=== PATIENT | female | born 1960 | race Caucasian/White ===

== ENCOUNTER → 2017-04-25 | Outpatient (CLI) | payer BC, OTHER ==
--- NOTE | 2017-05-03 19:49 | SLEEPHOME ---
DATE OF PROCEDURE: 04/25/2017 ORDERED BY: Daphney Sharif Diagnostic home sleep testing was performed due to concern for the obstructive sleep apnea syndrome in this patient with comorbidities of hypertension. For testing, a NOX-T3 respiratory monitoring device was used. Continuous record was made of pulse, oxygen saturation, air flow, chest and abdominal strain and body position. 9 hours and 59 minutes of data were reviewed, 9 hours and 10 minutes were marked as time in bed. During the interval marked time in bed, there were 57 respiratory events identified of 10 seconds in duration or greater for a respiratory event index of 6.2. The events were primarily obstructive. Baseline pulse rate 56 beats per minute. Pulse rate ranged 46 to 78. Baseline saturation 91%. Saturations fell as low as 85% surrounding respiratory events. Testing was performed in both the supine and nonsupine positions. IMPRESSION: Abnormal home sleep testing with repetitive respiratory events and oxygen desaturations to 85% with a respiratory event index of 6.2 is consistent with the obstructive sleep apnea syndrome. RECOMMENDATION: Given the significant oxygen desaturations identified and the frequency of events, referral for a formal sleep evaluation and in laboratory pressure titration is recommended. Copy To: Dr. Galvez
== END ==
LOC: M SLEEP HO 12:43
PROVIDERS: ATTEND Nurse Practitioner Adult Health
DX: G47.30 Sleep apnea, unspecified (principal)

== ENCOUNTER → 2019-12-26 | Outpatient (CLI) | payer OTHER ==
[2019-12-26 14:12] VITALS: BP 148/88
--- NOTE | 2019-12-27 01:01 | REP ---
POST BIOPSY MAMMOGRAM RIGHT BREAST: Post biopsy mammogram right breast performed following ultrasound-guided biopsy of a lesion in the upper outer quadrant by Dr. Carrasco. Biopsy clip is seen in the upper outer quadrant at the site of a nodule identified by mammography at [facility] dated 11/21/2019.
--- NOTE | 2019-12-27 01:01 | REP ---
ULTRASOUND GUIDANCE FOR RIGHT BREAST BIOPSY: Ultrasound guidance was provided for Dr. Carrasco, who performed ultrasound-guided biopsy of a hypoechoic nodule at the 10-11 o'clock position as seen by prior ultrasound at [facility] 11/27/2019.
--- NOTE | 2019-12-27 01:03 | REP ---
ULTRASOUND LEFT BREAST: Ultrasound left breast performed in the upper outer quadrant. At the 12:30 position, 3 cm from the nipple, is a suspicious irregular hypoechoic nodule with internal blood flow with Doppler evaluation. It measures 6 x 9 x 8 mm. At the 2-o'clock position, a hypoechoic area demonstrates irregular lobulated margins and demonstrates internal blood flow, measuring 2.0 x 1.5 x 1.6 cm. IMPRESSION: ACR 4, suspicious. Two solid irregular nodules in the upper outer quadrant of the left breast, as discussed above. Recommend ultrasound-guided biopsy.
--- NOTE | 2019-12-27 01:07 | REP ---
ULTRASOUND BILATERAL AXILLAE: Real-time sonographic evaluation of bilateral axillae is performed. In the right axilla, three lymph nodes are identified, which demonstrate fatty lei. The largest measures 1.8 x 1.1 x 2.4 cm; the others measure 1.8 x 0.6 x 1.7 cm and 2.3 x 0.9 x 1.6 cm. In the left axilla, two somewhat enlarged lymph nodes are seen. Both demonstrate fatty lei. The largest measures 2.5 x 1.2 x 4.7 cm. The other measures 1.5 x 1.1 x 1.1 cm. IMPRESSION: Bilateral axillary adenopathy, as discussed above.
--- NOTE | 2020-01-01 15:42 | ROOPDOC ---
[facility] Report Of Operation Report of Operation DATE OF PROCEDURE: 12/26/19 PREPROCEDURE DIAGNOSES: Right breast mass POSTPROCEDURE DIAGNOSES: Right breast mass PROCEDURE: Ultrasound-guided right breast mass biopsy with clip placement SURGEON: Elder Valera LOCK PLATER: ANESTHESIA: Local anesthetic was used ESTIMATED BLOOD LOSS: Approximately 1 mL. COMPLICATIONS: None. REMARKS: Clip seen on postbiopsy mammogram in expected position. DESCRIPTION OF PROCEDURE: Lidocaine 1% LOT [id number] Expiration 12/2022 Sodium Bicarbonate 8.4% LOT [id number] Expiration 12/2020 Hydromark clip LOT [id number] Expiration 07/23/2022 SHAPE 4 Bx device: BARD [id number] x10 cm LOT [id number] Expiration 09/14/2022 Informed consent was obtained. The most common risk and possible complications including bleeding, hematoma, bruising, infection, injury to surrounding structures were explained to the patient and she expressed understanding. Patient was placed on the bed in the supine position. Appropriate time out was done stating patients name, date of , and the procedure to be performed. The right breast was prepped and draped in the usual fashion. The ultrasound was used to confirm the location of the lesion in the right breast at 10:00 5 centimeters from the nipple. Plain Lidocaine 1% and 8.4% sodium bicarbonate 10:1 mix was used to anesthetize the skin, the biopsy site and tissues along the anticipated biopsy tract. Small skin incision was made with blade number 11. BARD Marquee 14G cannula with introducer ([id number]) was inserted through the incision and advanced under the ultrasound guidance to position immediately adjacent to the lesion. Next, the introducer was removed and BARD Marquee 14G biopsy device was places in the cannula. Pre-biopsy imaging, and post-biopsy imaging were captured. Five good core biopsies were taken at various levels of the lesion. Specimen was placed in formaldehyde, labeled with appropriate biopsy site and patients name, and sent to pathology for evaluation. Next, the biopsy device was withdrawn and a clip introducer was inserted into the biopsy site via the cannula. The Hydromark clip was deployed under sonographic guidance. Post-clip placement image was captured. Manual pressure over the biopsy cavity and tract was held after the clip introducer was withdrawn. No bleeding was noted upon removal of the pressure. Post-biopsy mammogram of the right breast was obtained and showed clip in expected position. Postprocedural dressing was placed. Patient tolerated procedure well. Discharge instructions were discussed with the patient and she expressed understanding. ELDER VALERA DO Jan 01, 2020 15:36
== END ==
LOC: M WHC 12:25
PROVIDERS: ATTEND Surgery
DX: D05.11 Intraductal carcinoma in situ of right breast (principal); R59.0 Localized enlarged lymph nodes

== ENCOUNTER → 2020-01-04 | Outpatient (CLI) | payer OTHER ==
[2020-01-04 16:58] LABS: CALCIUM LEVEL 9.4 MG/DL (8.5-10.1); CREATININE FOR GFR 1.12 MG/DL (0.55-1.30); POTASSIUM SERUM 4.3 MEQ/L (3.5-5.1)
== END ==
LOC: M PLALAB 13:21
PROVIDERS: ATTEND Surgery
DX: N63.11 Unspecified lump in the right breast, upper outer quadrant (principal)

== ENCOUNTER → 2020-03-19 | Outpatient (CLI) | payer OTHER ==
[~2020-03-19] MED LIST: CATA0.3T PO; DECA4TAB PO; LISI-538 PO; METF-839 PO; METO1TAB33 PO; ONDA8TAB8 PO; POTA1TAB14 PO; PRAV40TA2 PO; TRIA37.53 PO
[2020-03-19 15:17] VITALS: BP 122/70
--- NOTE | 2020-03-20 05:17 | ROOPDOC ---
[facility] Report Of Operation Report of Operation DATE OF PROCEDURE: 03/19/20 PREPROCEDURE DIAGNOSES: suspicious left breast lesions x2 POSTPROCEDURE DIAGNOSES: suspicious left breast lesions x2 PROCEDURE: US guided left breast biopsy x 2 with clips placement x2 SURGEON: Elder Valera REGISTERED DENTAL HYGIENIST: ANESTHESIA: local ESTIMATED BLOOD LOSS:minimal COMPLICATIONS: none REMARKS: clips in good position on post bx mammo DESCRIPTION OF PROCEDURE: Lidocaine 1% LOT [id number] Expiration 12/2022 Sodium Bicarbonate 8.4% LOT [id number] Expiration 12/2020 LEFT 2:00 6CFN biopsy site Hydromark clip LOT [id number] Expiration 11/2022 SHAPE 4 Bx device: BARD Hcynwhr32R x10 cm LOT [id number] Expiration 09/2022 (new device per each biopsy) LEFT 12:30 3 CFN biopsy site Hydromark clip LOT [id number] Expiration 11/2022 SHAPE 3 Bx device: BARD [id number] x10 cm LOT [id number] Expiration 09/2022 (new device per each biopsy) Informed consent was obtained. The most common risk and possible complications including bleeding, hematoma, bruising, infection, injury to surrounding structures were explained to the patient and she expressed understanding. Patient was placed on the bed in the supine position. Appropriate time out was done stating patients name, date of , and the procedure to be performed. The left breast was prepped and draped in the usual fashion. The ultrasound was used to confirm the location of the lesions in the left breast at 2:00 6 CFN and at 12:30 3 CFN. Procedure was started with biopsy of 2:00 lesion. Plain Lidocaine 1% and 8.4% sodium bicarbonate 10:1 mix was used to anesthetize the skin, the biopsy site and tissues along the anticipated biopsy tract. Small skin incision was made with blade number 11. BARD Marquee 14G cannula with introducer ([id number]) was inserted through the incision and advanced under the ultrasound guidance to p osition immediately adjacent to the lesion. Next, the introducer was removed and BARD Marquee 14G biopsy device was places in the cannula. Pre-biopsy imaging, and post-biopsy imaging were captured. Five good core biopsies were taken at various levels of the lesion. Specimen was placed in formaldehyde, labeled with appropriate biopsy site and patients name, and sent to pathology for evaluation. Next, the biopsy device was withdrawn and a clip introducer was inserted into the biopsy site via the cannula. The SHAPE 4 Hydromark clip was deployed under sonographic guidance. Post-clip placement image was captured. Manual pressure over the biopsy cavity and tract was held after the clip introducer was withdrawn. No bleeding was noted upon removal of the pressure. Next, we proceeded with biopsy of the left 12:30 lesion. Plain Lidocaine 1% and 8.4% sodium bicarbonate 10:1 mix was used to anesthetize the skin, the biopsy site and tissues along the anticipated biopsy tract. Small skin incision was made with blade number 11. BARD Marquee 14G cannula with introducer ([id number]) was inserted through the incision and advanced under the ultrasound guidance to position immediately adjacent to the lesion. Next, the introducer was removed and BARD Marquee 14G biopsy device was places in the cannula. Pre-biopsy imaging, and post-biopsy imaging were captured. Five good core biopsies were taken at various levels of the lesion. Specimen was placed in formaldehyde, labeled with appropriate biopsy site and patients name, and sent to pathology for evaluation. Next, the biopsy device was withdrawn and a clip introducer was inserted into the biopsy site via the cannula. The SHAPE 3 Hydromark clip was deployed under sonographic guidance. Post-clip placement image was captured. Manual pressure over the biopsy cavity and tract was held after the clip introducer was withdrawn. No bleeding was noted upon removal of the pressure. Post-biopsy mammogram of the left breast was obtained and showed clip in expected position. Postprocedural dressing was placed. Patient tolerated procedure well. Discharge instructions were discussed with the patient and she expressed understanding. ELDER VALERA DO Mar 20, 2020 05:17
--- NOTE | 2020-04-15 14:57 | REP ---
ULTRASOUND GUIDANCE FOR TWO LEFT BREAST BIOPSIES TECHNIQUE: Ultrasound guidance was provided for Dr. Carrasco who performed ultrasound-guided biopsy of two nodules in the left breast. FINDINGS: A hypoechoic solid nodule is identified at the 2 o'clock position of the left breast. Biopsy needle is seen within the nodule. Post-biopsy images show an echogenic structure within the nodule presumably representing a biopsy clip. Further images are performed at the 12:30 position for ultrasound-guided biopsy of a somewhat smaller solid nodule at that location. Biopsy needle appears to be within the hypoechoic nodule on several images. TYLERD
--- NOTE | 2020-04-15 14:58 | REP ---
POST-BIOPSY MAMMOGRAM, LEFT BREAST TECHNIQUE: ML and CC views of the left breast are performed following stereotactic biopsy of two separate solid nodules, one at the 12:30 position and the other at the 2 o'clock position of the left breast. FINDINGS: A biopsy clip is seen in the mid third of the left breast at the 12:30 position and another is seen in the mid third of the left breast at the 2 o'clock position. The nodules that were biopsied are not well visualized mammographically. MTDD
== END ==
LOC: M WHCPRO 12:47
PROVIDERS: ATTEND Surgery
DX: D05.12 Intraductal carcinoma in situ of left breast (principal)

== ENCOUNTER → 2020-03-25 | Outpatient (CLI) | payer OTHER | LOC: M WHCPRO 08:17 | PROVIDERS: ATTEND Surgery | DX: R59.9 Enlarged lymph nodes, unspecified (principal); Z53.9 Procedure and treatment not carried out, unspecified reason ==

== ENCOUNTER → 2020-04-08 | Outpatient (CLI) | payer OTHER ==
[2020-04-08 15:36] VITALS: BP 158/82
--- NOTE | 2020-04-17 10:08 | REP ---
ULTRASOUND-GUIDED BILATERAL AXILLARY LYMPH NODE BIOPSY The procedure was performed under the general supervision of Dr. Ko. CONSENT: The risks and benefits of the procedure were explained to the patient and informed consent was obtained. HISTORY: The patient has a history of bilateral axillary adenopathy seen on a previous ultrasound dated 12/26/2019. DESCRIPTION OF PROCEDURE: The left axillary lymph node was addressed first. The lymph node was localized using ultrasound guidance. The skin was prepped and draped in a sterile fashion. 1% Lidocaine was used as a local anesthetic. Using ultrasound guidance, a 14-gauge coaxial needle biopsy system was inserted and advanced into the lymph node. Five core biopsy samples were obtained and sent to the lab. A marker clip was placed at the biopsy site. The right axillary lymph node was then addressed. The lymph node was localized using ultrasound guidance. The skin was prepped and draped in a sterile fashion. 1% Lidocaine was used as a local anesthetic. Using ultrasound guidance, a 14- gauge coaxial needle biopsy system was inserted and six core biopsy samples were obtained. A marker clip was placed at the biopsy site. The patient tolerated the procedure well and there were no immediate complications. After the appropriate amount of monitored convalescence, the patient was discharged from the department. EMERY
== END ==
LOC: M WHCPRO 13:55
PROVIDERS: ATTEND Surgery
DX: R59.9 Enlarged lymph nodes, unspecified (principal)

== ENCOUNTER → 2020-04-14 | Outpatient (CLI) | payer OTHER ==
--- NOTE | 2020-04-22 13:04 | REP ---
PET CT HISTORY: Staging breast carcinoma. COMPARISON: Breast MRI study 02/12/2020. Bilateral breast carcinoma. TECHNIQUE: 56 minutes following the intravenous injection of an 8.12 mCi dose of F18 fluorodeoxyglucose (FDG), three-dimensional PET CT imaging is acquired from the skull base to the proximal thighs. PET CT FINDINGS: There is no abnormal hypermetabolic uptake in the head and neck soft tissues. There is no evidence of internal mammary or pulmonary parenchymal hypermetabolic uptake within the chest. No hilar or mediastinal hypermetabolic uptake is seen. No abnormal pleural uptake or pleural effusion is seen. There is a small quantity of pericardial effusion, but no evidence of pericardial hypermetabolic uptake. There are bilateral breast foci of hypermetabolic uptake. In the right breast superiorly, there is hypermetabolic uptake in an irregular soft tissue density with maximum standard uptake value 2.83. There is a right axillary lymph node with a similar degree of uptake maximum standard uptake value 2.83. This node does not appear enlarged by CT criteria. There is hypermetabolic uptake in a larger area of the left breast, somewhat multifocal superiorly. Maximum standard uptake value ranges up to 6.85 in the left breast. There is left axillary lymphadenopathy, which is mildly hypermetabolic, maximum standard uptake value 2.48 and 2.52. No abnormal hypermetabolic uptake is seen in the liver or spleen. No abnormal hypermetabolic uptake in the abdomen and pelvis. Bilateral renal cysts are observed. The right kidney is malrotated. There is a periumbilical ventral hernia transmitting abdominal fat. IMPRESSION: Bilateral hypermetabolic breast masses and bilateral mildly hypermetabolic axillary lymph nodes. No internal mammary adenopathy. No evidence of distant metastatic hypermetabolic uptake. MTDD
== END ==
LOC: M PLARAD 08:23
PROVIDERS: ATTEND Specialist
DX: C50.811 Malignant neoplasm of overlapping sites of right female breast (principal); C50.812 Malignant neoplasm of overlapping sites of left female breast
CPT/HCPCS: 78815; A9552

== ENCOUNTER → 2020-04-21 | Outpatient (CLI) | payer OTHER ==
--- NOTE | 2020-04-28 09:43 | REP ---
NUCLEAR MEDICINE GATED CARDIAC BLOOD POOL SCAN HISTORY: Breast cancer. Cardiotoxic chemotherapy. TECHNIQUE: Following the intravenous administration of 27.5 mCi Technetium-99m in vitro labeled red blood cells, using the Ultratag method, cine images of the heart are performed in various projections. FINDINGS: Left ventricular wall motion appears excellent. No abnormal wall motion is visualized scintigraphically. Left ventricular ejection fraction is calculated to be 80.6%. MTDD
== END ==
LOC: M RAD 12:12
PROVIDERS: ATTEND Specialist
DX: C50.919 Malignant neoplasm of unspecified site of unspecified female breast (principal)

== ENCOUNTER → 2020-05-01 | Outpatient (CLI) | payer OTHER ==
[~2020-05-01] MED LIST changes: +HYDROmorphone HCL 2 MG/ML 1ML VIAL (J1170) As Ordered ONE; +HYDROmorphone HCL 2 MG/ML 1ML VIAL (J1170) IV PRN; +LIDOCAINE 1% MDV 20ML VIAL As Ordered ONE; +MIDAZOLAM INJ 2MG/2ML VIAL (J2250 PER 1MG) As Ordered ONE; +diphenhydrAMINE 50MG/ML VIAL (J1200) As Ordered ONE; +fentaNYL 100 MCG/2 ML INJECTION (J3010) As Ordered ONE
[2020-05-01 16:30] VITALS: BP 150/90
--- NOTE | 2020-05-02 09:26 | IRHP ---
[facility] IR Pre-Procedure H & P General Date of Service: May 01, 2020 Procedure: Same Day Surgery Interval History and Physical I have seen the patient and reviewed last H & P performed within 30 days. There is no significant interval change. History of Present Illness Chief Complaint The patient is a 60-year-old female admitted with a reason for visit of Breast Ca. PRE-PROCEDURE DIAGNOSIS: breast ca HEART: normal rate LUNGS: normal breathing at rest. ASA Classification ASA Classification: II-Mild systemic disease Mallampati Score: II NPO: Yes Problems with prior sedation: No Obstructive Sleep Apnea: No Plan moderate sedation Allergies Coded Allergies: diltiazem (Verified Allergy, Intermediate, HIVES, 04/09/20) Home Medications Scheduled Clonidine HCl (Catapres), 1 TAB PO TID, (Reported) Lisinopril (Lisinopril), 2 TAB PO DAILY, (Reported) Metformin HCl (Metformin HCl), 500 MG PO DAILY, (Reported) Metoprolol Succinate (Metoprolol Succinate), 1 TAB PO DAILY, (Reported) Potassium Chloride (Potassium Chloride), 1 TAB PO DAILY, (Reported) Pravastatin Sodium (Pravastatin Sodium), 1 TAB PO DAILY, (Reported) Triamterene/Hydrochlorothiazid (Triamterene-Hctz 37.5-25 mg Cp), 1 CAP PO DAILY, (Reported) VS, I&O, 24H, Fishbone Vital Signs/I&O Vital Signs Date Time Temp Pulse Resp B/P (MAP) Pulse Ox O2 Delivery O2 Flow Rate FiO2 05/01/20 16:30 78 18 96 Room Air 05/01/20 14:31 2 05/01/20 13:13 99.3 150/90 WOODY ROBLES MD May 02, 2020 09:26
--- NOTE | 2020-05-02 09:27 | POST-OPPD ---
Postoperative Procedure Note Date Of Procedure: May 01, 2020 Time Of Procedure: 16:00 IR Ultrasound and fluoroscopy-guided port placement. IR Ultrasound of the neck. IR Moderate sedation. Clinical information: Breast cancer. Physician: Dr. Hicks. Procedure: The patient was advised of the benefits, risks, and alternatives of the procedure and informed consent was obtained. A time-out was performed with verification of the patient's name, MRN, site of procedure and type of procedure to be performed. The patient was positioned in the supine position on the angiographic table. The site was prepped and draped in the usual sterile fashion. Moderate sedation was performed by the physician including the presence of an independent trained RN who assisted and monitored the patient's level of consciousness and physiologic status. Following the administration of fentanyl and Versed , the physician spent 45 minutes of continuous face to face time with the patient. Ultrasound of the neck reveals a patent and compressible right internal jugular vein. A applications packager radiograph reveals no gross abnormality. The neck and anterior chest wall were anesthetized with lidocaine. The right internal jugular vein was accessed using a microintroducer needle under ultrasound guidance, via a lateral approach. An 018 wire was advanced into the superior vena cava, the needle was removed and a microsheath was placed. An Amplatz wire was then passed into the inferior vena cava. An incision at the internal jugular vein access site and anterior chest wall were made using a scalpel. An incision was made at the anterior chest wall. A small pocket was created using a combination of blunt and sharp dissection. A tunneling device was then used to pass the catheter from the pocket to the neck puncture site. An 8- [place] Angio [employer] Sy-Tec Smart power port was then positioned in the pocket. The catheter was then measured and cut. The introducer sheath was exchanged for a peel-away sheath. The catheter was passed through the peel-away sheath into the internal jugular vein and the peel-away sheath was removed. The port tip was positioned at the cavoatrial junction. The port was then accessed with a Lema needle. The port flushes and aspirates well. The puncture site in the neck was closed. The chest wall incision was then closed with 2-0 Vicryl and 4-0 Monocryl. Glue and Steri- Strips were applied. A sterile dressing was then applied. The patient tolerated the procedure well and was returned to the PRU in stable condition. Estimated blood loss: <5 ml. Complications: None. Conclusion: 1. Successful placement of an 8-[place] Angio dynamics Smart power port via the right internal jugular vein. The port is ready for immediate use. 2. Patient to follow up in IR clinic in 2 weeks. Thank you for this referral. WOODY HICKS MD May 02, 2020 09:27
== END ==
LOC: M IRPRO 11:39
PROVIDERS: ATTEND Radiology Diagnostic Radiology
DX: C50.919 Malignant neoplasm of unspecified site of unspecified female breast (principal); Z79.899 Other long term (current) drug therapy; Z88.8 Allergy status to other drugs, medicaments and biological substances
CPT/HCPCS: 36561; 99152; 99153; C1769; C1788; C1894; J1170; J1200; J1642; J1644; J2250; J3010

== ENCOUNTER → 2020-05-20 | Outpatient (POV) | payer OTHER ==
[~2020-05-20] MED LIST changes: -HYDROmorphone HCL 2 MG/ML 1ML VIAL (J1170) As Ordered ONE; -HYDROmorphone HCL 2 MG/ML 1ML VIAL (J1170) IV PRN; -LIDOCAINE 1% MDV 20ML VIAL As Ordered ONE; -MIDAZOLAM INJ 2MG/2ML VIAL (J2250 PER 1MG) As Ordered ONE; -diphenhydrAMINE 50MG/ML VIAL (J1200) As Ordered ONE; -fentaNYL 100 MCG/2 ML INJECTION (J3010) As Ordered ONE
--- NOTE | 2020-05-21 11:45 | IRPN ---
[facility] IR Progress Note IR Progress Note DATE: May 20, 2020 Patient agreed to this telephone follow-up. Duration of calls 5 minutes. FOLLOW-UP: Status post port placement. Patient doing well. Port was used without any issues. No fevers or chills. ON EXAMINATION: Patient sent images of the port site. Port site appears to be healing well without redness, swelling or discharge. IMPRESSION: Doing well status post port placement. No further follow-up scheduled unless initiated by patient and or referring provider. Thank you for this referral Allergies Coded Allergies: diltiazem (Verified Allergy, Intermediate, HIVES, 04/09/20) WOODY ROBLES MD May 21, 2020 11:45
== END ==
LOC: M TMIRPOV 09:34
PROVIDERS: ATTEND Radiology Diagnostic Radiology
DX: Z45.2 Encounter for adjustment and management of vascular access device (principal)

== ENCOUNTER → 2020-07-28 | Outpatient (CLI) | payer OTHER ==
[~2020-07-28] MED LIST changes: +AUGM500T34 PO; +POTA20TA6 PO
--- NOTE | 2020-07-28 15:32 | REP ---
INDICATION: F/U ON CHEMO TREATMENT. COMPARISON: Ultrasound right breast 11/27/2019, left breast and axilla 12/26/2019. TECHNIQUE: Real-time sonographic evaluation of bilateral breasts performed. FINDINGS: The right breast at 10-11 o'clock, approximately 5 cm from the nipple there is an oval hypoechoic and mildly heterogeneous nodule measuring approximately 1.3 x 1.7 x 0.8 cm. Size is essentially unchanged compared to prior ultrasound 11/27/2019. A biopsy clip is noted at that location. Several lymph nodes are seen in the right axilla as well as a biopsy clip. Short axis dimensions are within normal limits with echogenic fatty lei noted in all these lymph nodes. The left breast at the 12:30 position a hypoechoic nodule is visualized with a biopsy clip. It measures 6 x 9 x 3 mm. This has decreased since 12/26/2019. At 2 o'clock 6 cm from the nipple 2 cystic structures are seen measuring 5 mm in diameter. There is a biopsy clip. The previous lobulated mass is not visualized today. Lymph nodes are seen in the left axilla with fatty echogenic lei as well as a biopsy clip in that region. Short axis dimensions of the lymph nodes are within normal limits. IMPRESSION: BIRADS/ACR category 6, known bilateral breast cancer. The nodule in the right breast at the 10 to 11 o'clock position approximately 5 cm from the nipple has not changed in size. In the left breast at 12:30 the previously noted hypoechoic nodule has decreased in size. The mass at 2 o'clock left breast is no longer visualized. RECOMMENDATION: Continued clinical follow-up. <Electronically signed by Ousmane Ko > 07/28/20 [id number]
== END ==
LOC: M WHC 13:06
PROVIDERS: ATTEND Internal Medicine Hematology & Oncology
DX: C50.411 Malignant neoplasm of upper-outer quadrant of right female breast (principal); C50.912 Malignant neoplasm of unspecified site of left female breast

== ENCOUNTER → 2020-08-08 | Outpatient (CLI) | payer OTHER ==
[~2020-08-08] MED LIST changes: -LISI-538 PO; +LISI20TA33 PO; +POTA20TA6; +PROHANCE 279.3MG/ML 5ML VIAL As Ordered ONE
--- NOTE | 2020-08-11 09:14 | REP ---
INDICATION: INFILTRATING DUCTAL CA ALYSSA BREAST. Infiltrating ductal carcinoma left breast. Ductal carcinoma in situ right breast. COMPARISON: Comparison MRI study a February 12, 2020. Comparison PET-CT study April 14, 2020. Comparison sonography July 28, 2020. TECHNIQUE: Three Beer MRI imaging was performed with a dedicated breast coil. Axial, coronal, and sagittal T1 and T2 weighted scans were obtained with and without fat saturation in the usual fashion. The study includes dynamically acquired post gadolinium-enhanced imaging with image subtraction. Maximum intensity projection and multi planar reformation imaging is included as well. This study is interpreted with the aid of HaptikD, an FDA approved computer aided detection (CAD) software program, on a dedicated breast MRI workstation. The gadolinium enhancement dose is 8 mL of intravenous ProHance. FINDINGS: Heterogeneous fibroglandular breast parenchymal elements are again seen. There are 2 HydroMARK needle biopsy marker clips visible in the left there is still asymmetric breast parenchymal density in the region of these biopsy marker clips but the previously noted multinodular central left breast mass effect is no longer apparent. No definable mass lesion is seen on the left. Post gadolinium enhanced images show no suspicious gadolinium enhancement and this has resolved on the left. A prominent lymph node is again noted in the left axilla, completely unchanged from the prior study. No new lymph node is seen. No new breast mass or new suspicious finding. On the right the previously noted irregularly shaped enhancing mass persists 1.3 cm in diameter and unchanged in the interval since the February 12, 2020 MRI study this has not changed in size. Its enhancement pattern appears improved on maximum intensity projection postcontrast images.. No new suspicious lesion is seen in the right breast. There is a single prominent right axillary lymph node again noted also unchanged from the comparison MRI study February 12, 2020. Adjacent to this, there is a HydroMARK biopsy marker clip device visible today. There is a marker clip adjacent to the enhancing mass in the right breast as well. A magnetic field susceptibility artifact is seen emanating from an Nhhygk-L-Qery device in the right subclavicular and superior breast soft tissues. No other significant abnormality. IMPRESSION: Considerable improvement noted in the disease in the left breast. A 13 mm spiculated enhancing mass persists in the right breast. No change in either of the prominent lymph nodes identified, 1 in each axilla. BI-RADS category 6 known bilateral breast malignancy. <Electronically signed by Kip Zuniga > 08/11/20 0910
== END ==
LOC: M RAD 15:33
PROVIDERS: ATTEND Surgery
DX: C50.912 Malignant neoplasm of unspecified site of left female breast (principal); D05.11 Intraductal carcinoma in situ of right breast
CPT/HCPCS: 77047; A9576

== ENCOUNTER → 2020-08-21 | Outpatient (CLI) | payer OTHER ==
[~2020-08-21] MED LIST changes: -PROHANCE 279.3MG/ML 5ML VIAL As Ordered ONE
== END ==
LOC: M LABSMTC 11:09
PROVIDERS: ATTEND Anesthesiology
DX: Z01.812 Encounter for preprocedural laboratory examination (principal); Z20.822 Contact with and (suspected) exposure to COVID-19

== ENCOUNTER → 2020-08-26 | Day surgery (SDC) | payer OTHER ==
[~2020-08-26] VITALS: Ht 152.4 cm; Wt 93.0 kg
[~2020-08-26] MED LIST changes: +HEPARIN SOD (PORCINE) 5000UNITS/ML 1ML VIAL/SYRINGE SQ ONE; +LIDOCAINE 1% MDV 20ML VIAL SQ PRN; +LR 1,000 ML IV ONE; +ceFAZolin SOD 1 GM in D5W MINI-BAG PLUS 50 ML IV ONE; +ceFAZolin SOD 2 GM in IV 1 EA IV ONE
[2020-08-26 07:19] VITALS: BP 194/110
== END | disposition home or self-care (01) ==
LOC: M SDC 06:32
PROVIDERS: ATTEND Surgery
DX: C50.919 Malignant neoplasm of unspecified site of unspecified female breast (principal); Z53.09 Procedure and treatment not carried out because of other contraindication; I10 Essential (primary) hypertension

== ENCOUNTER → 2020-09-07 | Outpatient (CLI) | payer OTHER ==
[~2020-09-07] MED LIST changes: -HEPARIN SOD (PORCINE) 5000UNITS/ML 1ML VIAL/SYRINGE SQ ONE; -LIDOCAINE 1% MDV 20ML VIAL SQ PRN; -LR 1,000 ML IV ONE; -ceFAZolin SOD 1 GM in D5W MINI-BAG PLUS 50 ML IV ONE; -ceFAZolin SOD 2 GM in IV 1 EA IV ONE
== END ==
LOC: M LABSMTC 10:52
PROVIDERS: ATTEND Anesthesiology
DX: Z01.818 Encounter for other preprocedural examination (principal); Z11.52 Encounter for screening for COVID-19

== ENCOUNTER 2020-09-12 06:31 | Observation (INO) | payer OTHER ==
[~2020-09-12] VITALS: Ht 152.4 cm; Wt 93.0 kg
[~2020-09-12 06:31] MED LIST changes: +CLON0.3T PO; +HYDR-3910 PO
--- OUTSIDE RECORDS SUMMARY | 2020-09-12 06:35 | CCD ---
Author Author [facility] Organization [facility] Address Unknown Phone Unavailable Care Team Providers Care Pinner [employer] Name Role Phone Shabnam Carrasco Unavailable PROBLEMS Type Condition ICD9-CM Code [id number] Code Onset Dates Condition S tatus W/U Status Risk SNOMED Code Notes Problem Type 2 diabetes mellitus wit hout complication, without long-term current use of insulin E11.9 Active confirmed 483122634 Problem Malignant neoplasm of unspecified site of left female breast C50.912 Active confirmed 549238020 Problem Malignant neoplasm of unspecified site of right female breast C50.911 Active confirmed 151912334 Problem 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 Code:[address]-93) hives Drug Allergy Active ENCOUNTERS from 1960 to 2020-09-09 Encounter Location Date Provider Diagnosis [facility] Breast [facility] [address] [place] [id number] Aug, Shabnam Carrasco IMMUNIZATIONS No Information SOCIAL HISTORY Sex Assigned At : Social History Observation Description Sex Assigned At Unknown REASON FOR REFERRAL No Information VITAL SIGNS No information MEDICATIONS Medication SIG (Take, Route, Frequency, Duration) Notes Start Da te End Date Status Metoprolol Succinate ER 100 MG 1 tablet Orally Once a day Active Nystatin 354677 UNIT/GM 1 application Externally Twice a day for 10 day(s) Aug, Not-Taking Lidocaine-Prilocaine 2.5-2.5 % apply content of each t ube to each nipple 2 hours prior coming to hospital for surgery. Cover with plastic Externally once for 1 day Active Nystatin 550845 UNIT/GM 1 application Externally Twi ce a day to bilateral breasts for 14 day(s) Jul, Active MetFORMIN HCl ER 500 MG 1 tablet with evening meal Orally Once a day Active Fluconazole 150 MG 1 tablet Orally daily for 5 day(s) 2020 Not-Taking Clonidine HCl 0.2 MG 1 tablet Orally tid Active Lisinopril 20 MG 1 tablet Orally bid for 30 day(s) Active Potassium Chloride Ling ER Active Lidocaine-Prilocaine 2.5-2.5 % apply each tube to each nipple & surrounding breast 2 hours before coming in for SURGERY. Cover with plastic. Externally once for 1 day Active PROCEDURES No Information RESULTS No Results REASON FOR VISIT call to pcp re presurgical MEDICAL (GENERAL) HISTORY Type Description Date Medical History hypertension Medical History hyperlipidemia Medical History kidney cancer Medical History Infiltrating ductal carcinoma of L-Breas t Surgical History C section Surgical History hysterectomy abdominal Surgical History oophorectomy Surgical History nephrectomy Surgical History L-Breast surgery for infiltrating ducta l carcinoma Goals Section No Information Health Concerns No Information MEDICAL EQUIPMENT No Information MENTAL STATUS No Information FUNCTIONAL STATUS No Information ASSESSMENTS No Information PLAN OF TREATMENT Medication Medication Name Sig Start Date Stop Date Lidocaine-Prilocaine 2.5-2.5 % apply each tube to each nipple & surrounding breast 2 hours before coming in for SURGERY. Cover with plastic. Externally once for 1 day Next Appt Details Provider Name:Shabnam Carrasco, 07-09-25 10:30:00 AM, [address] [place] [address], [phone], Provider Name:Shabnam Carrasco, 06-10-07 02:00:00 PM, [address] [place] [address], [address], Provider Name:Shabnam Carrasco, 05-10-25 09:30:00 AM, [address] [place] [address], [address], Insurance Providers Payer Name Payer Address Payer Phone Insured Name Patient Relati onship to Insured Coverage Start Date Coverage End Date [facility] [facility] [address] [facility] [id number] EWELINA MODOY self
--- OUTSIDE RECORDS SUMMARY | 2020-09-12 06:35 | CCD | Continuity of Care Document ---
Author Author Marylin DOWNS MD Organization Unknown Address [address] [place] [address] Phone [phone] Problems Active Problems Provider Date Essential hypertension Onset: Hyperlipidemia Onset: Allergic rhinitis Onset: Arthritis Onset: Hypercholesterolemia Onset: Diverticulitis of colon Onset: 0 Kidney stone Onset: Renal cell carcinoma Onset: Sleep apnea Onset: Preoperative cardiovascular examination Aleksandr Mendez MD Onset: 09/02/2020 Aortic valve disorder Mana Collins RN, APPLICATION SUPPORT Onset: Malaise and fatigue Mana Collins RN, APPLICATION SUPPORT Onset: 04/19/2017 Dyspnea Mana Collins RN, APPLICATION SUPPORT Onset: 04/19/2017 Morbid obesity Mana Collins RN, APPLICATION SUPPORT Onset: 04/19/2017 Mixed hyperlipidemia Mana Collins RN, APPLICATION SUPPORT Onset: 04/19/2017 Electrocardiogram abnormal Mana Collins RN, APPLICATION SUPPORT Onset: 09/2016 Social History Type Date Description Comments Sex Unknown Tobacco Use Start: Unknown 07/19 ppd ETOH Use Denies alcohol use Tobacco Use Start: Unknown End: Patient is a former smoker Recreational Drug Use Denies Drug Use Smoking Status Reviewed: 09/01/20 Patient is a former smoker Allergies, Adverse Reactions, Alerts Active Allergies Reaction Severity Comments Date Cardizem skin rash-hives 04/13/2017 Medications Active Medications SIG Qnty Indications Ordering Provide r Date Hydralazine HCL 25mg Tablets take 1 tablet by mouth three times a day 90tabs Aleksandr Mendez MD 08/18 Eq Ibuprofen 200mg Capsules p rn Unknown Lisinopril 20mg Tablets 1 by mouth 2x day Unknown Metoprolol Succinate ER 100mg Tablets ER 24HR 1 by mouth every day Unknown Pravastatin Sodium 40mg Tablets 1 by mouth every day Unknown Triamterene/Hydrochlorothiazide 37.5-25mg Tablets 1 by mouth every day Unknown Clonidine HCL 0.3mg Tablets take 1 tablet by mouth three times daily Unknown Immunizations Description No Information Available Vital Signs Date Vital Result Comment 09/02/2020 1:54pm BP Systolic 160 mmHg BP Diastolic 110 mmHg Height 60 inches 5'0" Weight 206.00 lb BMI (Body Mass Index) 40.2 kg/m2 04/19/2017 3:34pm BP Systolic 140 mmHg BP Diastolic 100 mmHg Heart Rate 72 /min Height 60 inches 5'0" Weight 250.00 lb BMI (Body Mass Index) 48.8 kg/m2 Results Test Acquired Date Facility Test Result H/L Range Note Order 09/04/2020 [facility] Nuclear Lexiscan/Myoview <pending> Order 09/04/2020 [facility] Echocardiogram <pending> Laboratory test finding 08/22/2020 [facility] ( )- - [facility] Cbc/Cmp/Lipid/H Procedures Date Code Description Status 09/04/2020 72996 Echocardiography, Tranthoracic C omplete Image Documentation Completed 09/04/2020 85121 Cardiovascular Stress Test W/Int erpretation & Report Completed 09/04/2020 02094 Myocardial Perfusion Imaging Tomographic (Spect) Multiple Studies Completed Medical Devices Description No Information Available Encounters Description No Information Available Assessments Date Code Description Provider 09/04/2020 E66.01 Morbid (severe) obesity due to e xcess calories Yogi Downs MD 09/04/2020 E66.01 Morbid (severe) obesity due to e xcess calories Yogi Downs MD 09/04/2020 R06.02 Shortness of breath Yogi de la vega MD 09/04/2020 R06.02 Shortness of breath Yogi de la vega MD 09/04/2020 R94.31 Abnormal electrocardiogram [ECG] [EKG] Yogi Downs MD 09/04/2020 R94.31 Abnormal electrocardiogram [ECG] [EKG] Yogi Downs MD 09/02/2020 Z01.810 Encounter for preprocedural card iovascular examination Aleksandr Mendez MD 09/02/2020 R06.02 Shortness of breath Aleksandr Mendez MD 09/02/2020 I10 Essential (primary) hypertension Aleksandr Mendez MD 09/02/2020 E78.2 Mixed hyperlipidemia Aleksandr pina MD 09/02/2020 E66.01 Morbid (severe) obesity due to e xcess calories Aleksandr Mendez MD 09/02/2020 R94.31 Abnormal electrocardiogram [ECG] [EKG] Aleksandr Mendez MD Plan of Treatment Future Appointment(s):* 11/13/2020 10:00 am - [facility] 09/02/2020 - Aleksandr Mendez MD* Z01.810 Encounter for preprocedural cardiovascular examination * R06.02 Shortness of breath * I10 Essential (primary) hypertension * E78.2 Mixed hyperlipidemia * E66.01 Morbid (severe) obesity due to excess calories * R94.31 Abnormal electrocardiogram [ECG] [EKG]* New Orders:* U/S Renal Artery, Ordered: 09/02/20 * Echocardiogram, Ordered: 09/02/20 * Nuclear Lexiscan/Thallium, Ordered: 09/02/20 * Recommendations:* Blood pressure is not optimally controlled. Ordinarily I would likely add something like Amlodipine. But she relates an allergy to Diltiazem, which caused hives. Therefore will try Hydralazine 25 mg 3 times a day. Echocardiography will be obtained, to evaluate left and right heart pressures. Evaluate wall motion. Evaluate for LVH. Lexiscan Cardiolite will be obtained, her dyspnea on exertion and fatigue may represent anginal equivalence. Her resting left cardiogram is abnormal. She cannot walk the treadmill. Renal artery duplex will be obtained, to exclude renal artery stenosis as an etiology for her difficult to control hypertension. Further recommendations based on the above. Functional Status Description No Information Available Mental Status Description No Information Available Referrals Description No Information Available
--- OUTSIDE RECORDS SUMMARY | 2020-09-12 06:36 | CCD | Continuity of Care Document ---
Author Author Marylin DOWNS MD Organization Unknown Address [address] [place] [address] Phone [phone] Problems Active Problems Provider Date Essential hypertension Onset: Hyperlipidemia Onset: Allergic rhinitis Onset: Arthritis Onset: Hypercholesterolemia Onset: Diverticulitis of colon Onset: 0 Kidney stone Onset: Renal cell carcinoma Onset: Sleep apnea Onset: Preoperative cardiovascular examination Aleksandr Mendez MD Onset: 09/02/2020 Aortic valve disorder Mana Collins RN, MANAGER TRANSFUSION Onset: Malaise and fatigue Mana Collins RN, MANAGER TRANSFUSION Onset: 04/19/2017 Dyspnea Mana Collins RN, MANAGER TRANSFUSION Onset: 04/19/2017 Morbid obesity Mana Collins RN, MANAGER TRANSFUSION Onset: 04/19/2017 Mixed hyperlipidemia Mana Collins RN, MANAGER TRANSFUSION Onset: 04/19/2017 Electrocardiogram abnormal Mana Collins RN, MANAGER TRANSFUSION Onset: 09/2016 Social History Type Date Description [...] 24HR 1 by mouth every day Unknown 000 Pravastatin Sodium 40mg Tablets 1 by mouth [...] Cbc/Cmp/Lipid/H Procedures Date Code Description Status 09/04/2020 47060 Echocardiography, Tranthoracic C omplete Image Documentation Completed 09/04/2020 26316 Echocardiography, Tranthoracic C omplete Image Documentation Completed Medical Devices Description No Information Available [...] Treatment Future Appointment(s):* 11/13/2020 10:00 am - [facility] 09/02/2020 - Aleksandr Mendez MD* Z01.810 [...]
--- OUTSIDE RECORDS SUMMARY | 2020-09-12 06:36 | CCD | Continuity of Care Document ---
Author Author Marylin MENDEZ MD Organization Unknown Address [address] [place] [address] Phone [phone] Problems Active Problems Provider Date Essential hypertension Onset: Hyperlipidemia Onset: Allergic rhinitis Onset: Arthritis Onset: Hypercholesterolemia Onset: Diverticulitis of colon Onset: 0 Kidney stone Onset: Renal cell carcinoma Onset: Sleep apnea Onset: Preoperative cardiovascular examination Aleksandr Mendez MD Onset: 09/02/2020 Aortic valve disorder Mana Collins RN, CABLE SPLICER HELPER Onset: Malaise and fatigue Mana Collins RN, CABLE SPLICER HELPER Onset: 04/19/2017 Dyspnea Mana Collins RN, CABLE SPLICER HELPER Onset: 04/19/2017 Morbid obesity Mana Collins RN, CABLE SPLICER HELPER Onset: 04/19/2017 Mixed hyperlipidemia Mana Clolins RN, CABLE SPLICER HELPER Onset: 04/19/2017 Electrocardiogram abnormal Mana Collins RN, CABLE SPLICER HELPER Onset: 09/2016 Social History Type Date Description [...] Date Facility Test Result H/L Range Note Laboratory test finding 08/22/2020 [facility] ( )- - [facility] Cbc/Cmp/Lipid/H Procedures Description No Information Available Medical Devices Description No Information Available Encounters Description No Information Available Assessments Date Code Description Provider 09/02/2020 Z01.810 Encounter for preprocedural card iovascular [...] Treatment Future Appointment(s):* 11/13/2020 10:00 am - [facility] 09/02/2020 - Aleksandr Mendez MD* Z01.810 Encounter for preprocedural cardiovascular examination * R06.02 Shortness of breath * I10 Essential (primary) hypertension * E78.2 Mixed hyperlipidemia * E66.01 Morbid (severe) obesity due to excess calories * R94.31 Abnormal electrocardiogram [ECG] [EKG] Functional Status Description No Information Available Mental Status Description No Information Available Referrals Description No Information Available
--- OUTSIDE RECORDS SUMMARY | 2020-09-12 06:36 | CCD | Continuity of Care Document ---
Author Author Marylin DOWNS MD Organization Unknown Address [address] [place] [address] Phone [phone] Problems Active Problems Provider Date Essential hypertension Onset: Hyperlipidemia Onset: Allergic rhinitis Onset: Arthritis Onset: Hypercholesterolemia Onset: Diverticulitis of colon Onset: 0 Kidney stone Onset: Renal cell carcinoma Onset: Sleep apnea Onset: Preoperative cardiovascular examination Aleksandr Mendez MD Onset: 09/02/2020 Aortic valve disorder Mana Collins RN, SANITARY AIDE Onset: Malaise and fatigue Mana Collins RN, SANITARY AIDE Onset: 04/19/2017 Dyspnea Mana Collins RN, SANITARY AIDE Onset: 04/19/2017 Morbid obesity Mana Collins RN, SANITARY AIDE Onset: 04/19/2017 Mixed hyperlipidemia Mana Collins RN, SANITARY AIDE Onset: 04/19/2017 Electrocardiogram abnormal Mana Collins RN, SANITARY AIDE Onset: 09/2016 Social History Type Date Description [...] Cbc/Cmp/Lipid/H Procedures Date Code Description Status 09/04/2020 72979 Echocardiography, Tranthoracic C omplete Image Documentation Completed 09/04/2020 89321 Echocardiography, Tranthoracic C omplete Image Documentation Completed [...] Encounter for preprocedural card iovascular examination Aleksandr Mnedez MD 09/02/2020 R06.02 Shortness of breath Aleksandr Mendez MD 09/02/2020 I10 Essential (primary) hypertension Aleksandr Mendez MD 09/02/2020 E78.2 Mixed hyperlipidemia Aleksandr pina MD 09/02/2020 E66.01 Morbid (severe) obesity due to e xcess calories Aleksandr Mendez MD 09/02/2020 R94.31 Abnormal electrocardiogram [ECG] [EKG] Aleksandr Mendez MD Plan of Treatment Future Appointment(s):* 11/13/2020 10:00 am - [facility] 09/02/2020 - Aleksandr Mendez MD* Z01.810 [...]
--- OUTSIDE RECORDS SUMMARY | 2020-09-12 06:36 | CCD ---
Author Author [facility] Organization [facility] Address Unknown Phone Unavailable Care Team Providers Care Crabber Name Role Phone Shabnam Carrasco Unavailable PROBLEMS Type Condition ICD9-CM Code [id number] Code Onset Dates Condition S tatus W/U Status Risk SNOMED Code Notes Problem Malignant neoplasm of unspecified site of left female breast C50.912 Active confirmed 899310800 Problem Malignant neoplasm of unspecified site of right female breast C50.911 Active confirmed 792091865 Problem Type 2 diabetes mellitus wit hout complication, without long-term current use of insulin E11.9 Active confirmed 916008891 Problem 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 Breast Care [address] [place] [address] Aug, 2020 Shabnam Carrasco IMMUNIZATIONS No Information SOCIAL HISTORY Sex Assigned At : Social History Observation Description Sex Assigned At Unknown REASON FOR REFERRAL No Information VITAL SIGNS No information MEDICATIONS Medication SIG (Take, Route, Frequency, Duration) Notes Start Da te End Date Status Metoprolol Succinate ER 100 MG 1 tablet Orally Once a day Active Lidocaine-Prilocaine 2.5-2.5 % apply each tube to each nipple & surrounding breast 2 hours before coming in for SURGERY. Cover with plastic. Externally once for 1 day Jul, Active Nystatin 773297 UNIT/GM 1 application Externally Twi ce a day to bilateral breasts for 14 day(s) Jul, Active Lisinopril 20 MG 1 tablet Orally bid for 30 day(s) Active Clonidine HCl 0.2 MG 1 tablet Orally tid Active Fluconazole 150 MG 1 tablet Orally daily for 5 day(s) 2020 Active Potassium Chloride Ling ER Active MetFORMIN HCl ER 500 MG 1 tablet with evening meal Orally Once a day Active Lidocaine-Prilocaine 2.5-2.5 % apply content of each t ube to each nipple 2 hours prior coming to hospital for surgery. Cover with plastic Externally once for 1 day Active Nystatin 209458 UNIT/GM 1 application Externally Twice a day for 10 day(s) Aug, Active PROCEDURES No Information RESULTS No Results REASON FOR VISIT s/p dread simple mastectomy, dread sln bx, targeted axillary dis. MEDICAL (GENERAL) HISTORY Type Description Date Medical [...] Medication Name Sig Start Date Stop Date Nystatin 593531 UNIT/GM 1 application Externally Twice a day for 10 day(s) Aug, Lidocaine-Prilocaine 2.5-2.5 % apply content of each t ube to each nipple 2 hours prior coming to hospital for surgery. Cover with plastic Externally once for 1 day Lidocaine-Prilocaine 2.5-2.5 % apply each tube to each nipple & surrounding breast 2 hours before coming in for SURGERY. Cover with plastic. Externally once for 1 day Jul, Fluconazole 150 MG 1 tablet Orally daily for 5 day(s) Aug, Nystatin 354319 UNIT/GM 1 application Externally Twi ce a day to bilateral breasts for 14 day(s) Jul, Next Appt Details Provider Name:Shabnam Carrasco, 20 - 01:30:00 PM, [address] [place] [address], [phone], Provider Name:Shabnam Carrasco, 06-10-07 10:00:00 AM, [address] [place] [address], [address], Insurance Providers Payer Name Payer Address Payer Phone Insured Name Patient Relati onship to Insured Coverage Start Date Coverage End Date [employer] [facility] [address] [facility] [id number] EWELINA MOODY self
--- OUTSIDE RECORDS SUMMARY | 2020-09-12 06:36 | CCD ---
Author Author [facility] Organization [facility] Address Unknown Phone Unavailable Care Team Providers Care Electronics Technology Instructor Name Role Phone Shabnam Carrasco Unavailable PROBLEMS Type Condition ICD9-CM Code ODP32-EI Code Onset Dates Condition S tatus W/U Status Risk SNOMED Code Notes Problem Type 2 diabetes mellitus wit hout complication, without long-term current use of insulin E11.9 Active confirmed 296656612 Problem Malignant neoplasm of unspecified site of left female breast C50.912 Active confirmed 532129737 Problem Malignant neoplasm of unspecified site of right female breast C50.911 Active confirmed 636918668 Problem 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 confirmed 485483487 Problem Hx of partial nephrectomy Z90.5 Active confirmed 829129267 Problem Infiltrating ductal carcinoma of left breast C50.9 12 Active confirmed 236539150 Problem Hypertension I10 Active confirmed 4568559 3 ALLERGIES Allergen (clinical drug ingredient) Drug/Non Drug Allergy do cumented on EMR Reaction Allergy Type Onset Date Status diltiazem Cartia XT([facility] Code:[address]-76) hives Drug Allergy Active ENCOUNTERS from 1960 to 2020-09-02 Encounter Location Date Provider Diagnosis [facility] [address] [place] [id number] 19 Dec, 2019 Shabnam Carrasco Ductal carcinoma in situ (DCIS) of right breast D05.11 ; Unspecified lump in the left breast, upper outer quadrant N63.21 ; Palpable lymph node R59.9 ; Type 2 diabetes mellitus without complication, without long- term current use of insulin E11.9 and Hx of partial nephrectomy Z90.5 IMMUNIZATIONS No Information SOCIAL HISTORY Sex Assigned At : Social History Observation Description Sex Assigned At Unknown REASON FOR REFERRAL No Information VITAL SIGNS Weight 231 lbs Dec, Height 64 in Dec, BMI 39.65 kg/m2 Dec, Heart Rate 80 /min Dec, Respiratory Rate 18 /min Dec, Temperature 97.1 degrees Fahrenheit Dec, Oximetry 98 Dec, Blood pressure systolic 138 mm Hg Dec, Blood pressure diastolic 78 mm Hg Dec, MEDICATIONS Medication SIG (Take, Route, Frequency, Duration) Notes Start Da te End Date Status Metoprolol Succinate ER 100 MG 1 tablet Orally Once a day Active Nystatin 543664 UNIT/GM 1 application Externally Twice a day for 10 day(s) Aug, Not-Taking Lidocaine-Prilocaine 2.5-2.5 % apply content of each t ube to each nipple 2 hours prior coming to hospital for surgery. Cover with plastic Externally once for 1 day Active Lidocaine-Prilocaine 2.5-2.5 % apply each tube to each nipple & surrounding breast 2 hours before coming in for SURGERY. Cover with plastic. Externally once for 1 day Active MetFORMIN HCl ER 500 MG 1 tablet with evening meal Orally Once a day Active Nystatin 132275 UNIT/GM 1 application Externally Twi ce a day to bilateral breasts for 14 day(s) Active Clonidine HCl 0.2 MG 1 tablet Orally tid Active Lisinopril 20 MG 1 tablet Orally bid for 30 day(s) Active Potassium Chloride Ling ER Active Fluconazole 150 MG 1 tablet Orally daily for 5 day(s) 2020 Not-Taking PROCEDURES No Information RESULTS Component Value Reference Range Basic Metabolic Profile (BMP) Reviewed date:01/14/2020 10:35:16 Interpretation: Performing Lab:[facility], [facility] [address] [facility] [address] , ,[place] [id number] GLUCOSE, FASTING 120 70-100 BLOOD UREA NITROGEN 22 7-18 CREATININE FOR GFR 1.12 0.55-1.30 GLOMERULAR FILTRATION RATE 53.0 >51 SODIUM LEVEL 140 136-145 POTASSIUM SERUM 4.3 3.5-5.1 CHLORIDE LEVEL 103 98-107 CARBON DIOXIDE LEVEL 33 21-32 CALCIUM LEVEL 9.4 8.5-10.1 [facility] Reading, outside exam Reviewed date:09/01/2020 09:47:29 Interpretation: Performing Lab:[facility] [place], ,[place] [id number] REASON FOR VISIT bx f/u MEDICAL (GENERAL) HISTORY Type Description Date Medical [...] No Information FUNCTIONAL STATUS No Information ASSESSMENTS Encounter Date Diagnosis Assessment Notes Treatment Notes Treatm ent Clinical Notes Dec, Ductal carcinoma in situ (DCIS) of right breast (ICD-10 - D05.11) Dec, Unspecified lump in the left breast, upper outer quadrant (ICD-10 - N63.21) I discussed left breast ukltrasound results with the paient and informed her that bot areas identified in the left breast will need to be biopsed, however, before we do any additional biopses i would like to do MRI of the breast to assess the extent of disease . Patient agrees with the plan. Dec, Palpable lymph node (ICD-10 - R59.9) I discussed results of b/l axillary US with patient. At this time the radiology read is unclear with regards to results being suspicious. Read was done by Dr Ko who is not avaliable at this time to discuss the results. I discussed the results with Dr Zuniga who states that he doesnt see worrisome nodes however he cannot interpret Dr. Sanon reading who used term adenopathy. I will try to clarify this with Dr Ko when he becomes avaliable. In the mean time I think we need to get MRI of the breast to further clarify this issue. Patient agrees with the plan. Dec, Type 2 diabetes mellitus wit hout complication, without long-term current use of insulin (ICD-10 - E11.9) Patient is currently on metformin Patient is currently on metformin Dec, Hx of partial nephrectomy (ICD-10 - Z90.5) We will reach out to Dr Galan ( Nephrology, ) to ask if patient can have gadolinium injection for MRI. Dec, Other RIGHT BREAST CANCERDCIS (solid and cribriform)ER 100% CO 80% GRADE 2cTi.s. cN0- 1? cM0 SUSPICIOUS LEFT BREAST LESIONS [id number] CHARACTER OF B/L AXILLARY LN PLAN:1: Second read for US of b/l Axillary LN to clarify if suspicious2. MRI breast to determine extent of disease. Will get BMP to check sCr3. Will check with Nephrology if can give gadolinium to pt, since she had partial nephrectomy in past4. Will need bx of 2 left breast lesions, and possibly LNs if deemed suspicious 5. Genetic testing - patient will think if she wants genetic testing6. Will finalize surgical plans after the MRI and post L bx x27. Will need preop clearance for procedure (EKG, CXR, CBC)8. Referral to Medical Oncology post surgery 9. Will wait with placement of referral to Radiation Oncology until surgical plans are finalized. I reviewed the breast imaging with Ms. Garnett and her family. We have reviewed the overall breast cancer evaluation and staging. Based on the current information Ms. Garnett's cancer is limited to ductal carcinoma in situ without clear invasive component although it presents as a mass lesion. There was sclerosing adenosis found also on biopsy which could contribute to the masslike lesion. Since tumor is DCIS this puts it in category T i.s. She does some palpable mobile axillary lymph nodes bilaterally on exam ad at this point it is unclear if they are suspicious or not since Radiology report is not specific. Second read request was placed to further clarify the characteristics of the lymph nodes. I was not able to talk to Dr Ko about the read as he is not available at this time. I discussed the case with Dr Zuniga who did not see suspicious components of mentioned lymph nodes but he was unable to clarify term "adenopathy" used in the read. There are also 2 suspicious lesions found in the left breast which need bx, however prior to doing any additional biopsies, I would like to get MRI of the breast to delineate extent of the right breast disease and to further characterize the left breast lesions and the b/l axilla. Since patient had pre vious right partial nephrectomy due to RCC, we will contact her Community Association Manager to check if she can receive safely gadolinium contrast. I will also check her sCr now. We will discuss complete clinical stage when all the above information if clarified. I have discussed various component of multidisciplinary approach to breast cancer which include local treatments with surgery and radiation therapy and systemic treatments with antihormonal pill and possible chemotherapy. I explained to her that, surgery carries risks and potential complications, most common of which are risk of bleeding, infection and injury to surrounding structures like skin, nipple, muscle, lung, nerves especially long thoracic nerve and thoracodorsal nerve. Postsurgical complications may include, but are not limited to, numbness of the skin and or nipple, scarring, bruising, hematomas, seromas, flap and/or nipple necrosis, lymphedema, nerve injury causing weakness in motor function of upper extremity or scapula, contour deformity, poor cosmetic outcomes and need for additional surgeries. Those risks were explained to the patient and she expressed understanding. We have discussed that with breast conserving surgery there is a higher risk of locoregional recurrence of tumor because there is more [place] breast tissue left behind. The percentage of locoregional recurrence is lower with mastectomy than with breast conserving surgery but it is not zero as it is impossible to remove 100% of all breast tissue cells during mastectomy. There is also 10-20% chance of positive margins with breast conserving surgery which will warrant additional surgery to clear those margins. I also explained that with breast conserving surgery she may need to have radiation therapy in order to assure equal survival between the breast conservative treatment and mastectomy. Radiation therapy after mastectomy will be warranted only if the final mastectomy margins are positive or if lymph nodes are positive. We have also discussed that if she chooses mastectomy, she is entitled to reconstruction if she wishes to have it. Reconstruction options will be discussed in details with plastic surgeon, Dr. Mccray. I have explained to the patient that reconstruction is considered part of breast cancer treatment and is covered by insurance. Patient at this time has only DCIS in her right breast however we are still evaluating the left side and awaiting the MRI and bx results. I explained to the patient that if infasive breast cancer is found or if mastectomy is chosen, we pursue sentinel lymph node biopsy in fit patients. I explained that this is done to test the very first lymph nodes draining the breast for presence of cancer. This will be done with radionucleotide injection and possibly with blue dye tracer. If the lymph nodes contain cancer, depending on what surgery was performed and how many lymph nodes are positive, additional surgery and/ or radiation therapy to axilla may be warranted as well. I will wait with ordering EMLA cream to help with injection pain until we finalize the surgical plans and determine if SLNBx is needed. Since patient was diagnosed with breast cancer, she qualifies for genetic testing. She will think about genetic testing and will let us know if she would like to pursue it. I discussed with the patient and her family that if invasive cancer if fund in the final specimen and is above 0.5 cm, hormone + and Her2 negative, we will order Oncotype Dx to predict the probability of cancer coming back. I explained that if the test comes back with a high score, chemotherapy may be considered. If the final pathology shows only DCIS, Oncotype DX will not be ordered. I will place referral for Medical Oncology. This appointment can be scheduled after surgery. I explained to the patient that she will need see radiation oncology as well if she chooses breast conserving surgery or if her lymph nodes or mastectomy margins are positive. I will wait with placing this referral until surgical plans are finalized. Finally, after we finalize surgical plans, Ms. Garnett will need to schedule an appointment with her primary care doctor as to obtain a surgical clearance, latest labs and imaging (CBC, CXR, EKG). All questions were answered. Patient and her family agree with the plan. Time spent directly counseling patient: 60 min. PLAN OF TREATMENT Medication Medication Name Sig Start Date Stop Date Nystatin 050306 UNIT/GM 1 application Externally Twi ce a day to bilateral breasts for 14 day(s) Lidocaine-Prilocaine 2.5-2.5 % apply each tube to each nipple & surrounding breast 2 hours before coming in for SURGERY. Cover with plastic. Externally once for 1 day Treatment Notes Assessment Notes Clinical Notes Unspecified lump in the left breast, upper outer quadr ant I discussed left breast ukltrasound results with the paient and informed her that bot areas identified in the left breast will need to be biopsed, however, before we do any additional biopses i would like to do MRI of the breast to assess the extent of disease .Patient agrees with the plan. Palpable lymph node I discussed results of b/l a xillary US with patient. At this time the radiology read is unclear with regards to results being suspicious. Read was done by Dr Ko who is not avaliable at this time to discuss the results. I discussed the results with Dr Zuniga who states that he doesnt see worrisome nodes however he cannot interpret Dr. Sanon reading who used term adenopathy.I will try to clarify this with Dr Ko when he becomes avaliable. In the mean time I think we need to get MRI of the breast to further clarify this issue.Patient agrees with the plan. Type 2 diabetes mellitus without complic ation, without long-term current use of insulin Patient is currently on metformin Patient is currently on metformin Hx of partial nephrectomy We will reach out to Carlos Manuel rodríguez ( Nephrology, ) to ask if patient can have gadoliniuminjection for MRI. Treatment Notes Test Name Order Date MRI Breast Bilat with and w/o Contrast 2020-01-04 Next Appt Details Provider Name:Shabnam Carrasco, 07-09-25 10:30:00 AM, [address] [place] [address], [phone], Provider Name:Shabnam Carrasco, 06-10-07 10:00:00 AM, [address] [place] [address], [id number], Provider Name:Shabnam Carrasco, 06-10-07 02:00:00 PM, [address] [place] [address], [id number], Provider Name:Shabnam Carrasco, 05-10-25 09:30:00 AM, [address] [place] [address], [id number], Insurance Providers Payer Name Payer Address Payer Phone Insured Name Patient Relati onship to Insured Coverage Start Date Coverage End Date [employer] [facility] [address] [facility] [id number] EWELINA GARNETT self
--- OUTSIDE RECORDS SUMMARY | 2020-09-12 06:37 | CCD ---
Author Author [facility] Organization [facility] Address Unknown Phone Unavailable Care Team Providers Care Quality Review Trainer Name Role Phone Dewaynemy Shabnam Unavailable PROBLEMS Type Condition ICD9-CM Code QCQ39-DS Code Onset Dates Condition S tatus W/U Status Risk SNOMED Code Notes Problem Hx of partial nephrectomy Z90.5 Active confirmed 140564971 Problem Infiltrating ductal carcinoma of left breast C50.9 12 Active confirmed 448828112 Problem Type 2 diabetes mellitus wit hout complication, without long-term current use of insulin E11.9 Active confirmed 020714358 Problem 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 confirmed 263148001 ALLERGIES Allergen (clinical drug ingredient) Drug/Non Drug Allergy do cumented on EMR Reaction Allergy Type Onset Date Status diltiazem Cartia XT([facility] Code:[address]-50) hives Drug Allergy Active ENCOUNTERS from 1960 to 2020-08-25 Encounter Location Date Provider Diagnosis [facility] [address] [place] [phone] 08 Aug, 2020 Shabnam Carrasco IMMUNIZATIONS No Information [...] Externally once for 1 day Jul, Active Lisinopril 20 MG 1 tablet Orally bid for 30 day(s) Active Potassium Chloride Ling ER Active MetFORMIN HCl ER 500 MG 1 tablet with evening meal Orally Once a day Active Clonidine HCl 0.2 MG 1 tablet Orally tid Active Nystatin 827038 UNIT/GM 1 application Externally Twi ce a day to bilateral breasts for 14 day(s) Jul, Active PROCEDURES No Information RESULTS No Results REASON FOR VISIT AUTHORIZATION MEDICAL (GENERAL) HISTORY Type Description Date Medical [...] Name Sig Start Date Stop Date Nystatin 529738 UNIT/GM 1 application Externally Twi ce a day to bilateral breasts for 14 day(s) Jul, Lidocaine-Prilocaine 2.5-2.5 % apply each tube to each nipple & surrounding breast 2 hours before coming in for SURGERY. Cover with plastic. Externally once for 1 day Jul, Next Appt Details Provider Name:Shabnam Carrasco, 07-09-08 09:45:00 AM, [address] [place] [address], [phone], Provider Name:Shabnam Carrasco, 07-09-09 07:17:00 AM, [address] [place] [address], [phone], Provider Name:Shabnam Carrasco, 07-09-14 01:30:00 PM, [address] [place] [address], [id number], Provider Name:Shabnam Carrasco, 06-10-07 10:00:00 AM, [address] [place] [address], [id number], Insurance Providers Payer Name Payer Address Payer Phone Insured Name Patient Relati onship to Insured Coverage Start Date Coverage End Date [employer] [facility] [id number] [facility] [id number] EWELINA MOODY self
--- OUTSIDE RECORDS SUMMARY | 2020-09-12 06:37 | CCD | Continuity of Care Document ---
Author Author [facility] Organization [facility] Address [address] [place] [address] Phone Support Name Relationship [place] [address] Allergies, Adverse Reactions, Alerts Allergen Type Severity Reaction Last Updated Verified Status diltiazem HCl Allergy Hives September 29, 2018 8:18am No Active Medications Medication Status Dose Units Route Directions Qty Days Start Date End Date Instructions Ondansetron Discontinued MG PO May 23, 2020 10:00am August 22, 2020 10:42am Dexamethasone Discontinued MG PO May 23, 2020 10:00am August 22, 2020 10:42am Clonidine Hcl Discontinued 0.3 MG PO Three times a day March 27 9:25am June 30, 2020 9:12am Oxycodone-Acetaminophen (Percocet 5-325 Mg Tablet) 5-325 mg tablet Discontinued 2 TAB PO NEEDED December 29, 2013 2:05am March 9:05pm Metoprolol Tartrate Discontinued 50 MG PO Once Per Day April 06, 2016 10:06am January 04, 2017 8:22am Clonidine Hcl Discontinued 0.1 MG PO Every 8 hours April 06, 2016 11:13am December 13, 2017 6:00pm Metoprolol Succinate Discontinued 100 MG PO Once Per Day January 04, 2017 8:17 am September 14, 2018 5:23pm Pravastatin Discontinued 40 MG PO At Bedtime January 04, 2017 8:59am November 22, 2018 1:40pm Ciprofloxacin Discontinued 500 MG PO 2 Times Per Day January 04, 2017 7:37pm December 13, 2017 5:59pm Lactobacillus Rhamnosus Gg (Culturelle) 1 CAPSULE caps ule Discontinued 1 EACH PO Once Per Day January 04, 2017 7:37pm December 13 8 5:59pm Acetaminophen (Tylenol) 500 MG tablet Active 1000 MG PO Every 4 hours December 13, 2017 5:56p m Triamterene-Hydrochlorothiazid Discontinue d 1 TAB PO Once Per Day December 13, 2017 5:56p m August 14, 2018 5:02pm Clonidine Hcl Discontinued 0.2 MG PO Three times a day December 13, 2017 6:00p m October 25, 2018 3:12pm Triamterene-Hydrochlorothiazid (Dyazide) 37.5-25 mg ca psule Discontinued 1 CAP PO Once Per Day 0 February 21, 2013 8:12am April 062015 10:07am Lisinopril Discontinued 20 MG PO 2 Times Per Day 0 February 21, 2013 8:13am September 21, 2018 12:29pm Ibuprofen Discontinued 2 00 MG PO NEEDED 0 February 21, 2013 8:13am December 13, 2017 5:59pm PRAVASTATIN SODIUM (PRAVASTATIN) Dis continued 40 MG PO O nce Per Day 0 February 21, 2013 8:1 3am January 04, 2017 9:00am Triamterene-Hydrochlorothiazid Discontinue d 1 TAB PO Once Per Day 90 August 14, 2018 5:02pm November 15, 2018 9:17am Triamterene-Hydrochlorothiazid Discontinue d 1 TAB PO Once Per Day 90 August 14, 2018 5:02pm June 13, 2019 11:12am Metformin Discontinued September 01, 2018 9:42am December 10:25am Potassium Chloride Discontinued 20 MEQ PO Once Per Day 0 September 01, 2018 10:02am September 01, 2018 11:48am Potassium Chloride Discontinued 20 MEQ PO Once Per Day 30 September 01 9 11:48am November 15, 2018 9:38am Potassium Chloride Discontinued 20 MEQ PO Once Per Day 30 September 01 9 11:48am December 21, 2019 9:30am Metoprolol Succinate Discontinued 100 MG PO Once Per Day 90 September 14 9 5:23pm November 15, 2018 9:53am Metoprolol Succinate Discontinued 100 MG PO Once Per Day 90 September 14 9 5:23pm September 10, 2019 8:21am Lisinopril Discontinued 20 MG PO 2 Times Per Day 180 September 21, 2018 12:29pm November 15, 2018 10:02am Lisinopril Discontinued 20 MG PO 2 Times Per Day 180 September 21, 2018 12:29pm May 15, 2019 12:52pm Clonidine Hcl Discontinued 0.2 MG PO Three times a day 90 October 25, 2018 3 :12pm November 15, 2018 10:42am Clonidine Hcl Discontinued 0.2 MG PO Three times a day 90 October 25, 2018 3 :12pm February 19, 2019 9:12am Pravastatin Discontinued 40 MG PO At Bedtime November 22, 2018 1:39pm May 21, 2019 12:02am Metformin Discontinued 5 00 MG PO daily 90 January 02, 2019 10:24am June 26, 2019 9:23am Clonidine Hcl Discontinued 0.2 MG PO Three times a day February 19, 2019 9: 11am June 26, 2019 8:49am Lisinopril Discontinued 20 MG PO 2 Times Per Day 180 May 15, 2019 12:52pm January 01, 2020 10:00am Triamterene-Hydrochlorothiazid Discontinue d 1 TAB PO Once Per Day 90 June 13 9 11:12am July 24, 2019 4:02pm Pravastatin Discontinued 40 MG PO At Bedtime June 21, 2019 8:41am December 17, 2019 9:45am Clonidine Hcl Discontinued 0.2 MG PO Three times a day June 26, 2019 8:49am June 26, 2019 9:23am Metformin Discontinued 5 00 MG PO daily June 26, 2019 9:22am December 12, 2019 12:54pm Clonidine Hcl Discontinued 0.2 MG PO Three times a day 90 June 26 9 9:22am June 26, 2019 11:30am Clonidine Hcl Discontinued 0.2 MG PO Three times a day June 26 9 11:29am March 31, 2020 8:59am Triamterene-Hydrochlorothiazid Active 1 TAB PO Once Per Day 90 July 24, 2019 4:02pm Metoprolol Succinate Active 100 MG PO daily 90 September 10, 2019 8:21am Metformin Discontinued 5 00 MG PO daily December 12, 2019 12:54pm April 07, 2020 8:21am Pravastatin Discontinued 40 MG PO daily 90 December 17, 2019 9:45am May 19, 2020 3:53pm Potassium Chloride Discontinued 20 MEQ PO Once Per Day December 21, 2019 9:3 0May 14, 2020 7:37am Lisinopril Discontinued 20 MG PO 2 Times Per Day 180 January 01, 2020 9:58am August 13, 2020 11:06am Metformin Discontinued 5 00 MG PO daily April 07, 2020 8:21am July 31, 2020 2:58pm Potassium Chloride Discontinued 20 MEQ PO Once Per Day 90 May 14, 2020 7:36am May 23, 2020 3:01pm Pravastatin Active 40 MG PO daily May 19, 2020 3:52pm Potassium Chloride Active 20 MEQ PO Once Per Day May 23, 2020 3:00pm Clonidine Hcl Discontinued 0 .ROUTE .COMPLEX June 30, 2020 9:12am July 31, 2020 2:33pm TAKE 1 TABLET BY MOUTH THREE TIMES DAILY Clonidine Hcl Active 0.3 MG PO Three times a day July 31, 2020 2:32pm Metformin Active 0 .ROUTE .COMPLEX July 31, 2020 2:57pm Take 1 tablet by mouth once daily Lisinopril Active 20 MG PO 2 Times Per Day 180 August 13, 2020 11:06am Problems Active Problems Medical Problem Onset Date Status Headache Active Breast cancer Active Hypertension Active Inactive/Resolved Problems Medical Problem Onset Date Status Urinary tract infection Resolved Degenerative tear of left medial meniscus Resolved Epistaxis Resolved Influenza A Resolved Proteinuria Resolved Elevated troponin Reso lved Hypertension Resolved Procedures Procedure Date Performed Status CT Thorax with contrast August 2:03pm completed Xray Chest 2 view PA/LAT August 11:38am completed US Breast - Limited Unilat November 27, 2019 8:28am completed DIG MAMMO DIAG RT 2D ONLY November 27, 2019 7:51am completed 3D DIG MAMMO SCREEN BILAT November 20 9:08am completed Relevant Diagnostic Tests and/or Laboratory Data Laboratory Results Test Date/Time Result Interpretation Reference Range Result Comment Performing Site White Blood Count August 22, 2020 11:25am 9.0 10e3/uL 4.45-10.71 [facility], [address] [facility] [address] White Blood Count November 21, 2019 9:18am 9.8 10e3/uL 4.45-10.71 [facility], [address] [facility] [address] Red Blood Count August 22, 2020 11:25am 4.22 10e6/uL 4.20-5.40 [facility], [address] [place] [address] Red Blood Count November 21, 2019 9:18am 5.83 10e6/uL 4.20-5.40 [facility], [address] [place] [address] 26732 Hemoglobin August 22, 2020 11:25am 12.6 g/dL 10.7-15.4 [facility], [address] [place] [address] 59472 Hemoglobin November 21, 2019 9:18am 16.6 g/dL 10.7-15.4 [facility], [address] [place] [address] 93645 Hematocrit August 22, 2020 11:25am 40.2 % 3747 [facility], [address] [place] [address] 80922 Hematocrit November 21, 2019 9:18am 50.5 % 3747 [facility], [address] [place] [address] Mean Corpuscular Volume August 11:25am 95.3 fl 8096 [facility], [address] [place] [address] Mean Corpuscular Volume November 20 9:18am 86.6 fl 80-96 [facility], [address] [place] [address] 46261 Mean Corpuscular Hemoglobin August 22, 2020 11:25am 29.9 pg 27-31 [facility], [address] [place] [address] 95958 Mean Corpuscular Hemoglobin November 21, 2019 9:18am 28.5 pg 27-31 [facility], [address] [place], [place] [id number] Mean Corpuscular Hemoglobin Concent August 22, 2020 11:25am 31.3 g/dl 33-37 [facility], [address] [place], [place] [id number] Mean Corpuscular Hemoglobin Concent November 21, 2019 9:18am 32.9 g/dl 3337 [facility], [address] [place] [address] 87420 Red Cell Distribution Width August 22, 2020 11:25am 17 % 11-15 [facility], [address] [place] [address] 79814 Red Cell Distribution Width November 21, 2019 9:18am 14 % 11-15 [facility], [address] [place] [address] 07122 Platelet Count August 22, 2020 11:25am 296 10e3/ul 130-472 [facility], [address] [place] [address] 79009 Platelet Count November 21, 2019 9:18am 312 10e3/ul 130-472 [facility], [address] [place] [address] 69531 Mean Platelet Volume August 22 11:25am 9.9 fl 9.1-13.1 [facility], [address] [place] [address] 49326 Mean Platelet Volume November 21, 2019 9:18am 9.9 fl 9.1-13.1 [facility], [address] [place] [address] 46364 Neutrophils (%) (Auto) August 22, 2020 11:25am 64.8 % [address] [facility], [address] [place] [address] 46477 Neutrophils (%) (Auto) November 21, 2019 9:18a m 67.4 % [address] [facility], [address] [place] [address] 14887 Absolute Neutrophil August 22 11:25am 5.8 # 1.7-7.6 [facility], [address] [place] [address] 09804 Absolute Neutrophil November 21, 2019 9:18am 6.6 # 1.7-7.6 [facility], [address] [place] [address] 17078 Lymphocytes (%) (Auto) August 22, 2020 11:25am 21.6 % 14-46 [facility], [address] [place] [address] 83290 Lymphocytes (%) (Auto) November 21, 2019 9:18a m 20.3 % 14-46 [facility], [address] [place] [address] 90072 Lymphocytes # (Auto) August 22 11:25am 1.9 # 0.6-4.6 [facility], [address] [place] [address] 89284 Lymphocytes # (Auto) November 21, 2019 9:18am 2.0 # 0.6-4.6 [facility], [address] [place] [address] 59985 Monocytes (%) (Auto) August 22 11:25am 6.8 % 4-12 [facility], [address] [place] [address] 03718 Monocytes (%) (Auto) November 21, 2019 9:18am 5.8 % 4-12 [facility], [address] [place] [address] 90676 Monocytes # August 22, 2020 11:25am 0.6 # 0.2-1.2 [facility], [address] [place] [address] 00570 Monocytes # November 21, 2019 9:18am 0.6 # 0.2-1.2 [facility], [address] [place] [address] 67195 Eosinophils (%) (Auto) August 22, 2020 11:25am 5.2 % 0-7 [facility], [address] [place] [address] 86387 Eosinophils (%) (Auto) November 21, 2019 9:18a m 5.1 % 0-7 [facility], [address] [place] [address] 39333 Absolute Eosinophils (CBC) August 22, 2020 11:25am 0.5 # 0.0-0.5 [facility], [address] [place] [address] 06535 Absolute Eosinophils (CBC) November 21, 2019 9:18am 0.5 # 0.0-0.5 [facility], [address] [place] [address] 02004 Basophils (%) (Auto) August 22 11:25am 1.0 % 0.4-1.3 [facility], [address] [place] [address] 44486 Basophils (%) (Auto) November 21, 2019 9:18am 0.9 % 0.4-1.3 [facility], [address] [place] [address] 69103 Absolute Basophils (CBC) August 11:25am 0.1 # 0.0-0.2 [facility], [address] [place] [address] 04617 Absolute Basophils (CBC) November 20 9:18am 0.1 # 0.0-0.2 [facility], [address] [place] [address] 18779 Immature Granulocyte % (Auto) 2020 11:25am 0.6 % 0-2 [facility], [address] [place] [address] 63271 Immature Granulocyte % (Auto) November 9:18am 0.5 % 0-2 [facility], [address] [place] [address] 80233 Absolute Immature Granulocyte (auto August 22, 2020 11:25am 0.1 # 0-0.1 [facility], [address] [place] [address] 13427 Absolute Immature Granulocyte (auto November 21, 2019 9:18am 0.1 # 0-0.1 [facility], [address] [place] [address] 93068 Add Manual Differential August 11:25am No [facility], [address] [place] [address] 79927 Add Manual Differential November 20 9:18am No [facility], [address] [place] [address] 21652 Blood Urea Nitrogen August 22 11:25am 15 mg/dL 04-09 [facility], [address] [place] [address] Blood Urea Nitrogen November 21, 2019 9:18am 21 mg/dL 04-09 [facility], [address] [place] [address] 65235 Sodium Level August 22, 2020 11:25am 143 mmol/L 132-146 [facility], [address] [place] [address] 79354 Sodium Level November 21, 2019 9:18am 141 mmol/L 132-146 [facility], [address] [place] [address] 84526 Potassium Level August 22, 2020 11:25am 3.4 mmol/L 3.5-5.5 [facility], [address] [place] [address] 97640 Potassium Level November 21, 2019 9:18am 3.2 mmol/L 3.5-5.5 [facility], [address] [place] [address] 21854 Chloride Level August 22, 2020 11:25am 108 mmol/l 99-109 [facility], [address] [place] [address] 76653 Chloride Level November 21, 2019 9:18am 105 mmol/l 99-109 [facility], [address] [place] [address] 86988 Carbon Dioxide Level August 22 11:25am 30 mmol/l 20-31 [facility], [address] [place] [address] Carbon Dioxide Level November 21, 2019 9:18am 30 mmol/l -31 [facility], [address] [place] [address] 10982 Anion Gap August 22, 2020 11:25am 8 mmol/l 8-16 [facility], [address] [place] [address] Anion Gap November 21, 2019 9:18am 9 mmol/l 8-16 [facility], [address] [place] [address] 71333 Glucose Level August 22, 2020 11:25am 135 mg/dL 74-106 [facility], [address] [place] [address] 40732 Glucose Level November 21, 2019 9:18am 161 mg/dL 74-106 [facility], [address] [place] [address] 36129 Creatinine August 22, 2020 11:25am 1.1 mg/dL 0.5-1.1 [facility], [address] [place] [address] 67197 Creatinine November 21, 2019 9:18am 1.1 mg/dL 0.5-1.1 [facility], [address] [place] [address] 48648 Glomerular Filtration Rate Calc Febr ua2020 11:25am 51 ml/min ABOVE 60 [facility], [address] [place] [address] 42113 Glomerular Filtration Rate Calc November 21, 2019 9:18am 51 ml/min ABOVE 60 [facility], [address] [place] [address] 58416 Alanine Aminotransferase (ALT/SGPT) August 22, 2020 11:25am 34 U/L 10-49 [facility], [address] [place] [address] Alanine Aminotransferase (ALT/SGPT) November 21, 2019 9:18am 30 U/L 10-49 [facility], [address] [place] [address] 65494 Aspartate Amino Transf (AST/SGOT) Fe [place] 2020 11:25am 15 U/L 0-33 [facility], [address] [place] [address] 61379 Aspartate Amino Transf (AST/SGOT) Ma y 2019 9:18am 12 U/L 0-33 [facility], [address] [place] [address] 89753 Alkaline Phosphatase August 22 11:25am 69 U/L 45-129 [facility], [address] [place] [address] 59288 Alkaline Phosphatase November 21, 2019 9:18am 73 U/L 45-129 [facility], [address] [place] [address] 00710 Calcium Level August 22, 2020 11:25am 9.5 mg/dL 8.5-10.1 [facility], [address] [place] [address] 44853 Calcium Level November 21, 2019 9:18am 9.4 mg/dL 8.5-10.1 [facility], [address] [place] [address] 66230 Total Bilirubin August 22, 2020 11:25am 0.5 mg/dL 0.3-1.2 [facility], [address] [place] [address] 67298 Total Bilirubin November 21, 2019 9:18am 0.6 mg/dL 0.3-1.2 [facility], [address] [place] [address] 96369 Albumin August 22, 2020 11:25am 3.4 g/dL 3.2-4.8 [facility], [address] [place] [address] 82926 Albumin November 21, 2019 9:18am 3.7 g/dL 3.2-4.8 [facility], [address] [place] [address] 41102 Serum Total Protein August 22 11:25am 6.2 g/dL 5.7-8.2 [facility], [address] [place] [address] 39626 Serum Total Protein November 21, 2019 9:18am 7.1 g/dL 5.7-8.2 [facility], [address] [place] [address] 30993 Triglycerides Level August 22 11:25am 265 mg/dL 0-150 [facility], [address] [place] [address] 90544 Triglycerides Level November 21, 2019 9:18am 212 mg/dL 0-150 [facility], [address] [place] [address] 39584 Cholesterol Level August 22, 2020 11:25am 192 mg/dL 120-200 [facility], [address] [place] [address] 44558 Cholesterol Level November 21, 2019 9:18am 174 mg/dL 120-200 [facility], [address] [place] [address] 93631 HDL Cholesterol August 22, 2020 11:25am 36 mg/dL HDL Less than 40 mg/dL: Major risk for CHDHDL Greater than 59 mg/dL: Low risk for CHD [facility], [address] [place] [address] 17974 HDL Cholesterol November 21, 2019 9:18am 40 mg/dL HDL Less than 40 mg/dL: Major risk for CHDHDL Greater than 59 mg/dL: Low risk for CHD [facility], [address] [place] [address] 82217 LDL Cholesterol, Calculated August 22, 2020 11:25am 103 mg/dL 0-100 [facility], [address] [place] [address] LDL Cholesterol, Calculated November 21, 2019 9:18am 92 mg/dL 0-100 [facility], [address] [place] [address] Hemoglobin A1c August 22, 2020 11:25am 6.6 % 3.8-5.6 The following ranges may be used for interpretation of results: HGBA1C degree of glucose control: Greater than 8%: Action Suggested * Less than 7%: Goal of Diabetic Therapy Less than 5.6%: Normal Factors such as duration of diabetes, adherence to therapyand the age of the patient should also be considered inassessing the degree of blood glucose control. * High risk of developing long wall shear operator complications such asretinopathy, nephropathy, neuropathy, cardiopathy, etc. Some danger of hypoglycemic reaction in Type I diabetics.Some glucose intolerant individuals and "Sub Clinical"diabetics may demonstrate HGBA1C levels in this area. [facility], [address] [place] [address] Hemoglobin A1c November 21, 2019 9:18am 7.4 % 4.0-6.0 Th e following ranges may be used for interpretation of results: HGBA1C degree of glucose control: Greater than 8%: Action Suggested * Less than 7%: Goal of Diabetic Therapy Less than 6%: Normal Factors such as duration of diabetes, adherence to therapyand the age of the patient should also be considered inassessing the degree of blood glucose control. * High risk of developing correction complications such asretinopathy, nephropathy, neuropathy, cardiopathy, etc. Some danger of hypoglycemic reaction in Type I diabetics.Some glucose intolerant individuals and "Sub Clinical"diabetics may demonstrate HGBA1C levels in this area. [facility], [address] [place] [address] Estimated Average Glucose (eAG) November 21, 2019 9:18am 166 mg/dl An A1C of 7% - the goal of diabetic therapy - is equivalentto an EAG of 154 mg/dl. [facility], [address] [place] [address] Estimated Average Glucose (eAG) [facility] 2020 11:25am 143 mg/dl An A1C of 7% - the goal of diabetic ther apy - is equivalentto an EAG of 154 mg/dl. [facility], [address] [place] [address] 37692 Diagnostic Imaging Reports Report Dictated Date/Time Dictated By Status Radiology Report November 21, 2019 3:23pm Judah Rodriguez MD completed [facility] [address] [place] [address] [phone] NAME SEX PT STATUS ACCOUNT NUMBER EWELINA GARNETT REG REF [id number] ORDERING PHYSICIAN LOCATION MEDICAL RECORD NO. Luly Galvez MD MAMMO [id number] ATTENDING PHYSICIAN DATE OF DATE OF EXAM/TIME Luly Galvez MD 1960 11/21/19 / 8 TYPE / EXAM 3D DIG MAMMO SCREEN BILAT REASON FOR EXAM Screening for breast cancer LAST CLINICAL BREAST EXAM: 11/16/2019 FIVE YEAR RISK: 1.5% LIFETIME RISK: 8.3% FAMILY HISTORY OF BREAST CARCINOMA: None COMPARISON: 2D bilateral digital mammogram in the CC and MLO projections was performed with supplemental 3D tomosynthesis of both breasts. FINDINGS: Craniocaudad and oblique lateral views of the breasts were obtained. The breasts are composed of scattered areas of fibroglandular density. Focal asymmetry is seen in the upper-outer quadrant of the posterior depth of the right breast. Further evaluation with compression spot imaging and ultrasound is advised. A few scattered benign type calcifications are seen. There is no other dominant mass, suspicious clustered microcalcification or architectural distortion. IMPRESSION: Focal asymmetry in the upper-outer quadrant of the right breast. Further evaluation advised. OVERALL FINAL ASSESSMENT OF FINDINGS BI-RADS 0 - Incomplete: Needs Additional Imaging Evaluation. OVERALL FINAL ASSESSMENT OF THE BREAST COMPOSITION Breast Density Classification: B Description: The breasts are composed of scattered areas of fibroglandular density. This mammogram was read with the assistance of M-[employer], an FDA-approved computer- aided detection system for mammography. Reported By Judah Rodriguez MD on 11/21/19 1523 Signed By Judah Rodriguez MD on 11/21/19 1526 Date Time CC: Judah Rodriguez MD; Luly Galvez MD Techn: BAKLE Trans Dt/Tm: Trans by: DT Prt Dt/Tm: : Total DLP = 0.00 mGy-cm : Total Radiation Dose = 0.0000 mSv Lifetime Dose: 0 mSv Radiology Report November 27, 2019 11:32am Judah Rodriguez MD completed [facility] [address] [place] [address] [phone] NAME SEX PT STATUS ACCOUNT NUMBER EWELINA GARNETT REG REF [id number] ORDERING PHYSICIAN LOCATION MEDICAL RECORD NO. Luly Galvez MD MAMMO [id number] ATTENDING PHYSICIAN DATE OF DATE OF EXAM/TIME Luly Galvez MD 1960 11/27/19927 TYPE / EXAM US Breast - Limited Unilat REASON FOR EXAM RT BREAST X VIEW COMPARISON: Diagnostic mammogram from the same date. Multiple images of the right breast at the 10-11 o'clock location were obtained, encompassing the area of clinical concern. FINDINGS: A hypoechoic, ovoid lesion is seen in the 10 to 11:00 position, approximately 5 cm from nipple. It measures approximately 1.5 x 0.8 x 1.7 cm. It is not associated with posterior acoustic shadowing. Histologic correlation advised. IMPRESSION: 1.7 cm hypoechoic lesion in the 10 to 11:00 position of the right breast. Histologic correlation advised. OVERALL FINAL ASSESSMENT OF FINDINGS BI-RADS 4 - Suspicious Abnormality Reported By Judah Rodriguez MD on 11/27/19 1132 Signed By Judah Rodriguez MD on 11/27/19 1134 Date Time CC: Judah Rodriguez MD; Luly Galvez MD Techn: FREST Trans Dt/Tm: Trans by: DT Prt Dt/Tm: : Total DLP = 0.00 mGy-cm 6705-4944: Total Radiation Dose = 0 .0000 mSv Lifetime Dose: 0 mSv Radiology Report November 27, 2019 1:30pm Judah Rodriguez MD completed [facility] [address] [place] [address] [phone] NAME SEX PT STATUS ACCOUNT NUMBER EWELINA GARNETT REG REF [id number] ORDERING PHYSICIAN LOCATION MEDICAL RECORD NO. Luly Galvez MD MAMMO [id number] ATTENDING PHYSICIAN DATE OF DATE OF EXAM/TIME Luly Galvez MD 1960 11/27/19850 TYPE / EXAM DIG MAMMO DIAG RT 2D ONLY REASON FOR EXAM RT BREAST X VIEW LAST CLINICAL BREAST EXAM: November 16, 2019 FIVE YEAR RISK: 1.5% LIFETIME RISK: 8.3% FAMILY HISTORY OF BREAST CARCINOMA: None COMPARISON: Screening mammogram dated November 21, 2019 FINDINGS: Craniocaudad and oblique lateral views of the right breast was obtained. The breast is composed of scattered areas of fibroglandular density. Compression spot views of the upper-outer quadrant of the right breast demonstrate persistent asymmetry at approximately 10-11 o'clock in the mid depth. Further evaluation with ultrasound is advised. No other asymmetry, architectural distortion, or suspicious microcalcification is seen. IMPRESSION: Focal asymmetry in the upper-outer quadrant of the right breast. Ultrasound follow-up advised. OVERALL FINAL ASSESSMENT OF FINDINGS BI-RADS 0 - Incomplete: Needs Additional Imaging Evaluation. OVERALL FINAL ASSESSMENT OF THE BREAST COMPOSITION Breast Density Classification: B Description: The breast is composed of scattered areas of fibroglandular density. This mammogram was read with the assistance of Santhosh, an FDA-approved computer-aided detection system for mammography. Reported By Judah Rodriguez MD on 11/27/191329 Signed By Judah Rodriguez MD on 11/27/191331 Date Time CC: Judah Rodriguez MD; Luly Galvez MD Techn: CUMME Trans Dt/Tm: Trans by: DT Prt Dt/Tm: : Total DLP = 0.00 mGy-cm : Total Radiation Dose = 0.0000 mSv Lifetime Dose: 0 mSv Radiology Report August 22, 2020 2:08pm Magnolia Davila MD completed [facility] [address] [place] [address] [phone] NAME SEX PT STATUS ACCOUNT NUMBER EWELINA GARNETT REG REF [id number] ORDERING PHYSICIAN LOCATION MEDICAL RECORD NO. Luly Galvez MD RAD [id number] ATTENDING PHYSICIAN DATE OF DATE OF EXAM/TIME Luly Galvez MD 1960 08/22/20 / 8 TYPE / EXAM Xray Chest 2 view PA/LAT REASON FOR EXAM pre op htn COMPARISON: 08/27/2018 FINDINGS: The cardiac and mediastinal silhouettes appear stable. There is mild haziness seen in the right lung in its lower portion nonspecific. The left lung is clear. Port placement appears satisfactory. No pneumothorax is seen.. The bones and soft tissues are normal. The upper abdomen is unremarkable. IMPRESSION: Suggestion of patchy opacity in the right lower lobe. There is slight blunting of the right CP angle and the pleural effusion could be present. Recommend CT of the chest for follow-up. Reported By Magnolia Davila MD on 08/22/20 1408 Signed By Magnolia Davila MD on 08/22/20 1410 Date Time CC: Magnolia Davila MD; Luly Galvez MD Techn: CARRC Trans Dt/Tm: Trans by: DT Prt Dt/Tm: 4420-4480: Total DLP = 0.00 mGy-cm Fluoroscopy Time (in secs): Health Concerns Health Concerns may be documented in an alternate section. Advance Directives Advance Directive Response Recorded Date/Time Advanced Directive No [facility] 8:24am MOLST No January 04, 2017 12:00am Advance Directives on File or in chart? No January 04, 2017 12:00am Does Patient have a DNR? No August 27, 2018 8:24am Healthcare Proxy No 2018 8:24am Health Care Proxy Name Veto Garnett January 04, 2017 12:00am Health Care Proxy Phone Number [phone] January 04, 2017 12:00am Living Will No October 7:23am Chief Complaint and Reason for Visit Chief Complaint Hypertension Follow- up SCREENING Z12.31,R73.09 RT SIDE X VIEW Hypertension Follow-up Hypertension Follow-up Hypertension Follow-up Hypertension Follow-up PRE OP HTN LUNG MASS Hypertension Reason for Visit Hypertension Hypertension Hypertension Hypertension Hypertension Hypertension Encounters Encounter Location(s) Ar rival/Admit Date Discharge/Depart Date Provider(s) Departed Physician/Provider Office Visit [facility] November 16, 2019 9:21am November 16, 2019 9:55am Luly Galvez MD Registered Referred [facility]Mamm[facility] November 21, 2019 8:32am Luly Galvez MD Registered [facility] November 27, 2019 7:28am Luly Galvez MD Departed Physician/Provider Office Visit [facility] March 27, 2020 8:53am March 27, 2020 9:28am Luly Galvez MD Departed Physician/Provider Office Visit [facility] March 31, 2020 8:30am March 31, 2020 8:58am Luly Galvez MD Departed Physician/Provider Office Visit [facility] May 23, 2020 9:53am May 23, 2020 10:15am Luly Galvez MD Departed Physician/Provider Office Visit [facility] August 22, 2020 10:32am August 22, 2020 11:11am Luly Galvez MD Registered Referred [facility]-Radiology August 22, 2020 11:14am Luly Galvez MD Registered [facility]-Cat Scan August 25, 2020 1:32pm Luly Galvez MD Departed Physician/Provider Office Visit [facility] August 27, 2020 2:28pm August 27, 2020 3:00pm Luly Galvez MD Recent Diagnosis Onset Date Hypertension Hypertension Hypertension Hypertension Hypertension Hypertension Assessments Diagnosis Onset Date Res olution Status Hypertension acute Hypertension acute Hypertension acute Hypertension acute Hypertension acute Hypertension acute Family History Relationship Condition A ge at Onset Recorded Date/Time Not Specified Diabetes mellitus Unknown Functional Status No Functional Status information available Goals Goals may be documented in an alternate section. Immunizations No Immunization Information Available Mental Status No Mental Status Information Available Medical Equipment No Medical Equipment Information available Insurance Providers Guarantor EWELINA GARNETT Address [address] [place] [address] Contact Info. Home Phone: Payer Policy Id Coverage Id Subscriber's Name Subscriber Id Effective Date Expiration Date AETNA [facility] [id number] VETO GARNETT [id number] BC/BS [facility] [id number] VETO GARNETT [id number] [facility] [id number] EWELINA GARNETT [id number] BC/BS [facility] [id number] VETO GARNETT 2017 [employer] MVP [id number] EWELINA GARNETT [id number] 2015 2016 [facility] [id number] EWELINA GARNETT [id number] 2011 2013 PRIVATE INSURANCE FREE [id number] VETO GARNETT [id number] [facility] [id number] VETO GARNETT [id number] Self Pay Self N/A [facility] [id number] VETO GARNETT [id number] Plan of Treatment BP good, EKG normal, CXR and labs reviewed, labs good, CXR shows slight haziness with CT recommended, will try to schedule tuesday but should not hold up surgery, normal exam, cleared for surgery BP much improved, cleared for biopsies, see 6 weeks increase dose of clonidine, continue other medications, much stress with breast cancer, see 5 days BP improved, labs reviewed from oncology, last BS 130, losing weight, small meal s, see 3 months, she will discuss flu shot with oncology Future Tests Future scheduled test information is unavailable Pending Tests Pending diagnostic test information is unavailable Future Visits Future appointment information is unavailable Referrals to Other Providers Reason for Referral Referral Start Date Provider Provider Conta ct Information Provider Address I10 - Essential (primary) hypertension August 27, 2020 [facility] [place] [address] [facility] [address] R91.1 - Solitary pulmonary nodule August 27, 2020 [facility] Work Phone: [phone] [address] Future Procedures Future procedure information is unavailable Future Medications Future medication information is unavailable Patient Instructions DASH Eating Plan (GEN) Hypertension (GEN) DASH Eating Plan (GEN) Hypertension (GEN) Social History Smoking Status Status Date of Observation Never smoker March 26, 2020 3:1 9pm Observation Status Date of Observation Not October 03, 2018 Observation Status Observation Response Mark e of Response Smoking Status Never smoker March 26, 2020 2:19pm Alcohol Use No August 27, 2018 10:25am Substance Use No 2018 10:25am Smoking Status Former smoker November 14, 2013 7:23am Assigned Sex Female Vital Signs Vital Reading Result Ref erence Range Collection Date/Time Height 60 [in_i] November 16, 2019 10:28am Weight 231.00 [lb_av] November 16, 2019 10:28am Body Temperature 98.2 [degF] 97.6-99.5 November 16, 2019 10:28am Heart Rate 67 /min 60-100 November 16, 2019 10:28am Respiratory rate 12 /min 12-November 16, 2019 10:28am Oxygen saturation by Pulse oximetry 98 % 95- 100 November 16, 2019 10:28am BP Systolic 132 mm[Hg] November 16, 2019 10:28am BP Diastolic 68 mm[Hg] November 16, 2019 10:28am BMI (Body Mass Index) 45.1 kg/m2 November 16, 2019 10:28am Height 60 [in_i] March 27, 2020 9:55am Weight 227.00 [lb_av] March 27, 2020 9:55am Heart Rate 62 /min 60-100 March 27, 2020 9:55am Respiratory rate 12 /min 12-24 March 27, 2020 9:55am Oxygen saturation by Pulse oximetry 99 % 95- 100 March 27, 2020 9:55am BP Systolic 166 mm[Hg] March 27, 2020 9:55am BP Diastolic 100 mm[Hg] March 27, 2020 9:55am BMI (Body Mass Index) 44.3 kg/m2 March 27, 2020 9:55am Height 60 [in_i] March 31, 2020 9:48am Weight 227.00 [lb_av] March 31, 2020 9:48am Heart Rate 55 /min 60-100 March 31, 2020 9:48am Respiratory rate 12 /min 12-March 31, 2020 9:48am Oxygen saturation by Pulse oximetry 98 % 95- 100 March 31, 2020 9:48am BP Systolic 130 mm[Hg] March 31, 2020 9:48am BP Diastolic 68 mm[Hg] March 31, 2020 9:48am BMI (Body Mass Index) 44.3 kg/m2 March 31, 2020 9:48am Height 60 [in_i] May 23, 2020 9:57am Weight 214.00 [lb_av] May 23, 2020 9:57am Heart Rate 78 /min 60-100 May 23, 2020 9:57am Respiratory rate 12 /min -May 23, 2020 9:57am Oxygen saturation by Pulse oximetry 98 % 95- 100 May 23, 2020 9:57am BP Systolic 128 mm[Hg] May 23, 2020 9:57am BP Diastolic 62 mm[Hg] May 23, 2020 9:57am BMI (Body Mass Index) 41.8 kg/m2 May 23, 2020 9:57am Height 60 [in_i] August 22, 2020 10:43am Weight 204.00 [lb_av] August 22, 2020 10:43am Body Temperature 97.5 [degF] 97.6-99.5 August 22, 2020 10:43am Heart Rate 68 /min 60-100 August 22, 2020 10:43am Respiratory rate 14 /min -August 22, 2020 10:43am Oxygen saturation by Pulse oximetry 98 % 95- 100 August 22, 2020 10:43am BP Systolic 134 mm[Hg] August 22, 2020 10:43am BP Diastolic 78 mm[Hg] August 22, 2020 10:43am BMI (Body Mass Index) 39.8 kg/m2 August 22, 2020 10:43am Height 60 [in_i] August 27, 2020 2:31pm Weight 204.00 [lb_av] August 27, 2020 2:31pm Heart Rate 72 /min 60-100 August 27, 2020 2:31pm Respiratory rate 14 /min 12-24 August 27, 2020 2:31pm Oxygen saturation by Pulse oximetry 97 % 95- 100 August 27, 2020 2:31pm BMI (Body Mass Index) 39.8 kg/m2 August 27, 2020 2:31pm
--- OUTSIDE RECORDS SUMMARY | 2020-09-12 06:38 | CCD ---
Author Author [facility] Organization [facility] Address Unknown Phone Unavailable Care Team Providers Care Energy Economist Name Role Phone DewaynemyShabnam Unavailable PROBLEMS Type Condition ICD9-CM Code [id number] Code Onset Dates Condition S tatus W/U Status Risk SNOMED Code Notes Problem Hx of partial nephrectomy Z90.5 Active confirmed 679550798 Problem Infiltrating ductal carcinoma of left breast C50.9 12 Active confirmed 764499389 Problem Type 2 diabetes mellitus wit hout complication, without long-term current use of insulin E11.9 Active confirmed 293701957 Problem 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 Code:[address]-04) hives Drug Allergy Active ENCOUNTERS from 1960 to 2020-08-21 Encounter Location Date Provider Diagnosis [facility] [address] [place] [address] Aug, Shabnam Carrasco IMMUNIZATIONS No Information SOCIAL [...] MG 1 tablet Orally tid Active Nystatin 391202 UNIT/GM 1 application Externally Twi ce a day to bilateral breasts for 14 day(s) Jul, Active PROCEDURES No Information RESULTS No Results REASON FOR VISIT pfl paperwork MEDICAL (GENERAL) HISTORY Type Description Date Medical [...] Name Sig Start Date Stop Date Nystatin 898594 UNIT/GM 1 application Externally Twi ce a day to bilateral breasts for 14 day(s) Jul, Lidocaine-Prilocaine 2.5-2.5 % apply each tube to each nipple & surrounding breast 2 hours before coming in for SURGERY. Cover with plastic. Externally once for 1 day Jul, Next Appt Details Provider Name:Shabnam Carrasco, 07-09-08 09:45:00 AM, [address] [place] [address], [phone], Provider Name:Shabnam Carrasco, 07-09-14 01:30:00 PM, [address] [place] [address], [phone], Provider Name:Shabnam Carrasco, 06-10-07 10:00:00 AM, [address] [place] [address], [id number], Insurance Providers Payer Name Payer Address Payer Phone Insured Name Patient Relati onship to Insured Coverage Start Date Coverage End Date AETNA [facility] [address] [facility] [id number] EWELINA MOODY self
--- OUTSIDE RECORDS SUMMARY | 2020-09-12 06:38 | CCD | Continuity of Care Document ---
Author Author [facility] Organization [facility] Address [address] [place] [address] Phone Support Name Relationship [place] [address] Allergies, Adverse Reactions, Alerts Allergen Type Severity [...] Discontinued 20 MEQ PO Once Per Day May 14, 2020 7:36am May 23, 2020 [...] Active Problems Medical Problem Onset Date Status Urinary tract infection Active Degenerative tear of left medial meniscus Active Epistaxis Active Influenza A Active Headache Active Breast cancer Active Proteinuria Active Elevated troponin Acti ve Hypertension Active Hypertension Active Procedures Procedure Date Performed Status US Breast - Limited Unilat November 27, 2019 8:28am completed DIG MAMMO DIAG RT 2D ONLY November 27, 2019 7:51am completed 3D DIG MAMMO SCREEN BILAT November 20 9:08am completed Relevant Diagnostic Tests and/or Laboratory Data Laboratory Results Test Date/Time Result Interpretation Reference Range Result Comment Performing Site White Blood Count November 21, 2019 9:18am 9.8 10e3/uL 4.45-10.71 [facility], [address] [place] [address] 49550 Red Blood Count November 21, 2019 9:18am 5.83 10e6/uL 4.20-5.40 [facility], [address] [place] [address] 79668 Hemoglobin November 21, 2019 9:18am 16.6 g/dL 10.7-15.4 [facility], [address] [place] [address] 89029 Hematocrit November 21, 2019 9:18am 50.5 % 37-47 [facility], [address] [place] [address] 35264 Mean Corpuscular Volume November 20 0 9:18am 86.6 fl 80-96 [facility], [address] [place] [address] 11656 Mean Corpuscular Hemoglobin November 21, 2019 9:18am 28.5 pg 27-31 [facility], [address] [place] [address] 32371 Mean Corpuscular Hemoglobin Concent November 21, 2019 9:18am 32.9 g/dl 33-37 [facility], [address] [place] [address] Red Cell Distribution Width November 21, 2019 9:18am 14 % 11-15 [facility], [address] [place] [address] 12629 Platelet Count November 21, 2019 9:18am 312 10e3/ul 130-472 [facility], [address] [place] [address] Mean Platelet Volume November 21, 2019 9:18am 9.9 fl 9.1-13.1 [facility], [address] [place] [address] 82326 Neutrophils (%) (Auto) November 21, 2019 9:18a m 67.4 % 41-77 [facility], [address] [place] [address] 65743 Absolute Neutrophil November 21, 2019 9:18am 6.6 # 1.7-7.6 [facility], [address] [place] [address] 89695 Lymphocytes (%) (Auto) November 21, 2019 9:18a m 20.3 % 14-46 [facility], [address] [place] [address] 32238 Lymphocytes # (Auto) November 21, 2019 9:18am 2.0 # 0.6-4.6 [facility], [address] [place] [address] 09614 Monocytes (%) (Auto) November 21, 2019 9:18am 5.8 % 4-12 [facility], [address] [place] [address] 24144 Monocytes # November 21, 2019 9:18am 0.6 # 0.2-1.2 [facility], [address] [place] [address] 50671 Eosinophils (%) (Auto) November 21, 2019 9:18a m 5.1 % 0-7 [facility], [address] [place] [address] Absolute Eosinophils (CBC) November 21, 2019 9:18am 0.5 # 0.0-0.5 [facility], [address] [place] [address] 40675 Basophils (%) (Auto) November 21, 2019 9:18am 0.9 % 0.4-1.3 [facility], [address] [place] [address] 53345 Absolute Basophils (CBC) November 20 9:18am 0.1 # 0.0-0.2 [facility], [address] [place] [address] 92934 Immature Granulocyte % (Auto) November 9:18am 0.5 % 0-2 [facility], [address] [place] [address] 26852 Absolute Immature Granulocyte (auto November 21, 2019 9:18am 0.1 # 0-0.1 [facility], [address] [place] [address] 19334 Add Manual Differential November 20 0 9:18am No [facility], [address] [place] [address] 62961 Blood Urea Nitrogen November 21, 2019 9:18am 21 mg/dL 9-23 [facility], [address] [place] [address] 31369 Sodium Level November 21, 2019 9:18am 141 mmol/L 132-146 [facility], [address] [place] [address] 94584 Potassium Level November 21, 2019 9:18am 3.2 mmol/L 3.5-5.5 [facility], [address] [place] [address] 90677 Chloride Level November 21, 2019 9:18am 105 mmol/l 99-109 [facility], [address] [place] [address] 10044 Carbon Dioxide Level November 21, 2019 9:18am 30 mmol/l 20-31 [facility], [address] [place] [address] 82839 Anion Gap November 21, 2019 9:18am 9 mmol/l 8-16 L [facility], [address] [place] [address] 88140 Glucose Level November 21, 2019 9:18am 161 mg/dL 74-106 [facility], [address] [place] [address] 62900 Creatinine November 21, 2019 9:18am 1.1 mg/dL 0.5-1.1 [facility], [address] [place] [address] 81673 Glomerular Filtration Rate Calc November 21, 2019 9:18am 51 ml/min ABOVE 60 [facility], [address] [place] [address] 46255 Alanine Aminotransferase (ALT/SGPT) November 21, 2019 9:18am 30 U/L 10-49 [facility], [address] [place] [address] Aspartate Amino Transf (AST/SGOT) Ma y 2019 9:18am 12 U/L 0-33 [facility], [address] [place] [address] Alkaline Phosphatase November 21, 2019 9:18am 73 U/L 45-129 [facility], [address] [place] [address] Calcium Level November 21, 2019 9:18am 9.4 mg/dL 8.5-10.1 [facility], [address] [place] [address] Total Bilirubin November 21, 2019 9:18am 0.6 mg/dL 0.3-1.2 [facility], [address] [place] [address] Albumin November 21, 2019 9:18am 3.7 g/dL 3.2-4.8 [facility], [address] [place] [address] Serum Total Protein November 21, 2019 9:18am 7.1 g/dL 5.7-8.2 [facility], [address] [place] [address] Triglycerides Level November 21, 2019 9:18am 212 mg/dL 0-150 [facility], [address] [place] [address] Cholesterol Level November 21, 2019 9:18am 174 mg/dL 120-200 [facility], [address] [place] [address] HDL Cholesterol November 21, 2019 9:18am 40 mg/dL HDL Less than 40 mg/dL: Major risk for CHDHDL Greater than 59 mg/dL: Low risk for CHD [facility], [address] [place] [address] LDL Cholesterol, Calculated November 21, 2019 9:18am 92 mg/dL 0-100 [facility], [address] [place] [address] Hemoglobin A1c November 21, 2019 9:18am 7.4 [...] glucose control. * High risk of developing oracle distribution consultant complications such asretinopathy, nephropathy, neuropathy, cardiopathy, etc. Some danger of hypoglycemic reaction in Type I diabetics.Some glucose intolerant individuals and "Sub Clinical"diabetics may demonstrate HGBA1C levels in this area. [facility], [address] [place] [address] 88238 Estimated Average Glucose (eAG) November 21, 2019 9:18am 166 mg/dl An A1C of 7% - the goal of diabetic therapy - is equivalentto an EAG of 154 mg/dl. [facility], [address] [place] [address] 12234 Diagnostic Imaging Reports Report Dictated Date/Time Dictated By Status Radiology Report November 21, 2019 3:23pm Judah Rodriguez MD completed [place] [address] [facility] [place] [address] [phone] NAME SEX PT STATUS ACCOUNT NUMBER EWELINA GARNETT REG REF [id number] ORDERING PHYSICIAN LOCATION MEDICAL RECORD NO. Luly Galvez MD MAMMO [id number] ATTENDING PHYSICIAN DATE OF DATE OF EXAM/TIME [...] mammogram was read with the assistance of JaylynVu, an FDA-approved computer- aided detection system for [...] 27, 2019 11:32am Judah Rodriguez MD completed [place] [address] [place] [id number] [phone] NAME SEX PT STATUS ACCOUNT NUMBER EWELINA GARNETT REG REF [id number] ORDERING PHYSICIAN LOCATION MEDICAL RECORD NO. Luly Galvez MD MAMMO [id number] ATTENDING PHYSICIAN DATE OF DATE OF EXAM/TIME [...] 0.00 mGy-cm : Total Radiation Dose = 0 .0000 mSv Lifetime Dose: 0 mSv Radiology Report November 27, 2019 1:30pm Judah Rodriguez MD completed [facility] [address] [place] [address] [phone] NAME SEX PT STATUS ACCOUNT NUMBER EWELINA GARNETT REG REF [id number] ORDERING PHYSICIAN LOCATION MEDICAL RECORD NO. Luly Galvez MD MAMMO [id number] ATTENDING PHYSICIAN DATE OF DATE OF EXAM/TIME Luly Galvez MD 1960 11/27/19 / 0851 TYPE / EXAM DIG MAMMO DIAG RT [...] mammogram was read with the assistance of M-Vu, an FDA-approved computer-aided detection system for mammography. Reported By Judah Rodriguez MD on 11/27/19 1330 Signed By Judah Rodriguez MD on 11/27/19 1332 Date Time CC: Judah Rodriguez MD; Luly Galvez MD Techn: CUMME Trans Dt/Tm: Trans by: DT Prt Dt/Tm: : Total DLP = 0.00 mGy-cm : Total Radiation Dose = 0.0000 mSv Lifetime Dose: 0 mSv Health Concerns Health Concerns may be documented in an alternate section. Advance Directives Advance Directive Response Recorded Date/Time Advanced Directive No 2018 8:24am MOLST No January 04, 2017 12:00am Advance Directives on File or in chart? No January 04, 2017 12:00am Does Patient have a DNR? No August 27, 2018 8:24am Healthcare Proxy No 2018 8:24am Health Care Proxy Name Veto Garnett January 04, 2017 12:00am Health Care Proxy Phone Number January 04, 2017 12:00am Living Will No October 7:23am Chief Complaint and Reason for Visit Chief Complaint Hypertension Follow- up SCREENING Z12.31,R73.09 RT SIDE X VIEW Hypertension Follow-up Hypertension Follow-up Hypertension Follow-up Hypertension Follow-up Reason for Visit Hypertension Hypertension Hypertension Hypertension Hypertension Encounters Encounter Location(s) Ar rival/Admit Date Discharge/Depart Date Provider(s) Departed Physician/Provider Office Visit [facility] November 16, 2019 9:21am November 16, 2019 9:55am Luly Galvez MD Registered Referred [facility] November 21, 2019 8:32am Luly Galvez MD Registered Referred [facility] November 27, 2019 7:28am Luly Galvez MD Departed Physician/Provider Office Visit [facility] March 27, 2020 8:53am March 27, 2020 9:28am Luly Galvez MD Departed Physician/Provider Office Visit [facility] March 31, 2020 8:30am March 31, 2020 8:58am Luly Galvez MD Departed Physician/Provider Office Visit [facility] May 23, 2020 9:53am May 23, 2020 10:15am Luly Galvez MD Departed Physician/Provider Office Visit [facility] August 22, 2020 10:32am August 22, 2020 11:11am Luly Galvez MD Recent Diagnosis Onset Date Hypertension Hypertension Hypertension Hypertension Hypertension Assessments Diagnosis [...] available Insurance Providers Guarantor EWELINA GARNETT Address [address] [place] [address] Contact Info. Home Phone: Payer Policy Id Coverage Id Subscriber's Name Subscriber Id Effective Date Expiration Date BC/BS [facility] [id number] VETO GARNETT [id number] [facility] [id number] EWELINA GARNETT [id number] BC/BS [facility] [id number] VETO GARNETT 2017 [facility] [id number] EWELINA GARNETT [id number] 2015 2016 [facility] [id number] EWELINA GARNETT [id number] 2011 2013 PRIVATE INSURANCE FREE [id number] VETO GARNETT [id number] [facility] [id number] VETO GARNETT [id number] Self Pay Self N/A R [id number] VETO GARNETT [id number] Plan of Treatment BP much improved, cleared for biopsies, see [...] information is unavailable Referrals to Other Providers Referral information is unavailable Future Procedures Future procedure information is unavailable [...] 16, 2019 10:28am Respiratory rate 12 /min 12-24 November 16, 2019 10:28am Oxygen saturation by Pulse [...] 23, 2020 9:57am Respiratory rate 12 /min 12-May 23, 2020 9:57am Oxygen saturation by Pulse [...] 22, 2020 10:43am Respiratory rate 14 /min 12-August 22, 2020 10:43am Oxygen saturation by Pulse oximetry 98 % 95- 100 August 22, 2020 10:43am BP Systolic 150 mm[Hg] August 22, 2020 10:43am BP Diastolic 88 mm[Hg] August 22, 2020 10:43am BMI (Body Mass Index) 39.8 kg/m2 August 22, 2020 10:43am
--- OUTSIDE RECORDS SUMMARY | 2020-09-12 06:39 | CCD ---
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 194236216 ALLERGIES Allergen (clinical drug ingredient) Drug/Non Drug Allergy do cumented on EMR Reaction Allergy Type Onset Date Status diltiazem Cartia XT([facility] Code:[address]-05) hives Drug Allergy Active ENCOUNTERS from 1960 to 2020-08-08 Encounter Location Date Provider Diagnosis [facility] [address] [place] [address] Jul, Shabnam Carrasco Infiltrating ductal carcinoma of left br east C50.912 ; Ductal carcinoma in situ (DCIS) of right breast D05.11 ; S/P lymph node biopsy Z98.890 ; Candidiasis of breast B37.89 ; Type 2 diabetes mellitus without complication, without long-term current use of insulin E11.9 and Hx of partial nephrectomy Z90.5 IMMUNIZATIONS No Information SOCIAL HISTORY Sex Assigned At : Social History Observation Description Sex Assigned At Unknown REASON FOR REFERRAL No Information VITAL SIGNS Weight 231.1 lbs Jul, Weight-kg 104.83 kg Jul, Height 64 in Jul, BMI 39.66 kg/m2 Jul, Heart Rate 82 /min Jul, Respiratory Rate 18 /min Jul, Temperature 97.2 degrees Fahrenheit Jul, Oximetry 99 Jul, Blood pressure systolic 138 mm Hg Jul, Blood pressure diastolic 74 mm Hg Jul, MEDICATIONS Medication SIG (Take, Route, Frequency, Duration) [...] MG 1 tablet Orally tid Active Nystatin 649700 UNIT/GM 1 application Externally Twi ce a day to bilateral breasts for 14 day(s) Jul, Active PROCEDURES No Information RESULTS No Results REASON FOR VISIT s/p Chemo MEDICAL (GENERAL) HISTORY Type Description Date Medical [...] Notes Treatment Notes Treatm ent Clinical Notes Jul, Infiltrating ductal carcinoma of left breast (IC D-10 - C50.912) BILATERAL BREAST CANCER RIGHT DCIS GRADE 2 ER 100% SC 80% cTis cN0 (s/p bx) cM0 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 One VUS present. PET 03/2020 negative for distal disease PLAN: 1) will order MRI breast (+BMP) to assess response to NAC and for preoperative planning. Will check with Nephro prior since pt had Hx of partial nephrectomy. Will also check the b/l breast/axillary US ordered by [facility] when report is avaliable ([facility] will discuss results with the patient) 2) Will schedule surgery after MRI, planning for b/l simple mastectomy, b/l sentinel lymph node bx with dual tracer and b/l intraop wire placement to localize axillary hydromarks, b/l axillary frozen section, possible b/l axillary lymph node dissection. KEEP PORT-A-CATH in place as need to continue Herceptin tx x 1 year. 3) will need EMLA cream x 2 4) following with [facility] 5) will wait for [facility] referral base on final pathology results 6) Nystatin powder to b/l inframammary folds until sx resolve Patient will need medical clearance prior to the surgery including EKG, CXR and the labs. All questions were answered. Patient agrees with the plan. Jul, Ductal carcinoma in situ (DCIS) of right breast (ICD-10 - D05.11) see above Jul, S/P lymph node biopsy (ICD-10 - Z98.890) s/p B/l Axillary LN bx with RADIOLOGY with b/l hydromark clip placement. b/l pathology was negative for malignancy will plan for BILATERAL INTRAOP WIRE PLACEMENT AT THE TIME OF SURGERY Jul, Candidiasis of breast (ICD-10 - B37.89) Patient was noted to have b/l inframammary fold dermatitis on exam. Nystatin powder Rx was sent to the pharmacy. Patient was instructed to continue nystatin treatment until resolution of symptoms Jul, Type 2 diabetes mellitus wit hout complication, without long-term current use of insulin (ICD-10 - E11.9) Patient is currently on metformin Jul, Hx of partial nephrectomy (ICD-10 - Z90.5) Patient follows with Dr Galan ( Nephrology, ) PLAN OF TREATMENT Medication Medication Name Sig Start Date Stop Date Nystatin 126115 UNIT/GM 1 application Externally Twi ce a day to bilateral breasts for 14 day(s) Jul, Lidocaine-Prilocaine 2.5-2.5 % apply each tube to each nipple & surrounding breast 2 hours before coming in for SURGERY. Cover with plastic. 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 One VUS present.PET 03/2020 negative for distal diseasePLAN:1) will order MRI breast (+BMP) to assess response to NAC and for preoperative planning. Will check with Nephro prior since pt had Hx of partial nephrectomy. Will also check the b/l breast/axillary US ordered by [facility] when report is avaliable ([facility] will discuss results with the patient)2) Will schedule surgery after MRI, planning for b/l simple mastectomy, b/l sentinel lymph node bx with dual tracer and b/l intraop wire placement to localize axillary hydromarks, b/l axillary frozen section, possible b/l axillary lymph node dissection. KEEP PORT-A-CATH in place as need to continue Herceptin tx x 1 year.3) will need EMLA cream x 24) [place] will wait for [facility] referral base on final pathology results6) Nystatin powder to b/l inframammary folds until sx resolvePatient will need medical clearance prior to the surgery including EKG, CXR and the labs.All questions were answered. Patient agrees with the plan. Ductal carcinoma in situ (DCIS) of right breast see above S/P lymph node biopsy s/p B/l Axillary LN bx with RADIOLOGY with b/l hydromark clip placement.b/l pathology was negative for malignancywill plan for BILATERAL INTRAOP WIRE PLACEMENT AT THE TIME OF SURGERY Candidiasis of breast Patient was noted to have b/ l inframammary fold dermatitis on exam. Nystatin powder Rx was sent to the pharmacy. Patient was instructed to continue nystatin treatment until resolution of symptoms Type 2 diabetes mellitus without complic ation, without long-term current use of insulin Patient is currently on metformin Hx of partial nephrectomy Patient follows with Dr Gwendolyn otoole ( Nephrology, ) Treatment Notes Test Name Order Date MRI Breast Bilat with and w/o Contrast 2020-08-08 Basic Metabolic Profile (BMP) 2020-08-08 Insurance Providers Payer Name Payer Address Payer Phone Insured Name Patient Relati onship to Insured Coverage Start Date Coverage End Date [facility] [facility] [place] [address] [facility] [id number] EWELINA MOODY self
--- OUTSIDE RECORDS SUMMARY | 2020-09-12 06:39 | CCD ---
Author Author 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 828403810 ALLERGIES Allergen (clinical drug ingredient) Drug/Non Drug Allergy do cumented on EMR Reaction Allergy Type Onset Date Status diltiazem Cartia XT([facility] Code:[address]-20) hives Drug Allergy Active ENCOUNTERS from 1960 to 2020-06-27 Encounter Location Date Provider Diagnosis [facility] [address] [place] [address] Mar, Shabnam Carrasco IMMUNIZATIONS No Information SOCIAL HISTORY Sex Assigned At : Social History Observation Description Sex Assigned At Unknown REASON FOR REFERRAL No Information VITAL SIGNS No information MEDICATIONS Medication SIG (Take, Route, Frequency, Duration) Notes Start Da te End Date Status Clonidine HCl 0.2 MG 1 tablet Orally tid Active Potassium Chloride Ling ER Active Metoprolol Succinate ER 100 MG 1 tablet Orally Once a day Active Lisinopril 20 MG 1 tablet Orally bid for 30 day(s) Active MetFORMIN HCl ER 500 MG 1 tablet with evening meal Orally Once a day Active PROCEDURES No Information RESULTS No Results REASON FOR VISIT discussion with pt on day of Bx MEDICAL (GENERAL) HISTORY Type Description Date Medical History hypertension Medical History hyperlipidemia Medical History kidney cancer Surgical History C section Surgical History hysterectomy abdominal Surgical History oophorectomy Surgical History nephrectomy Goals Section No Information Health Concerns No Information MEDICAL EQUIPMENT No Information MENTAL STATUS No Information FUNCTIONAL STATUS No Information ASSESSMENTS No Information PLAN OF TREATMENT No Information Insurance Providers Payer Name Payer Address Payer Phone Insured Name Patient Relati onship to Insured Coverage Start Date Coverage End Date [facility] [address] [address] [facility] [phone] EWELINA MOODY self
--- OUTSIDE RECORDS SUMMARY | 2020-09-12 06:39 | CCD ---
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 906260783 ALLERGIES Allergen (clinical drug ingredient) Drug/Non Drug Allergy do cumented on EMR Reaction Allergy Type Onset Date Status diltiazem Cartia XT([facility] Code:[address]-80) hives Drug Allergy Active ENCOUNTERS from 1960 to 2020-08-11 Encounter Location Date Provider Diagnosis [facility] Breast Care [address] [place] [address] Jul, Shabnam Carrasco IMMUNIZATIONS No Information SOCIAL HISTORY [...] MG 1 tablet Orally tid Active Nystatin 963880 UNIT/GM 1 application Externally Twi ce a day to bilateral breasts for 14 day(s) Jul, Active PROCEDURES No Information RESULTS No Results REASON FOR VISIT records request - [facility] MEDICAL (GENERAL) HISTORY Type Description Date Medical [...] Name Sig Start Date Stop Date Nystatin 532226 UNIT/GM 1 application Externally Twi ce a day to bilateral breasts for 14 day(s) Jul, Lidocaine-Prilocaine 2.5-2.5 % apply each tube to each nipple & surrounding breast 2 hours before coming in for SURGERY. Cover with plastic. Externally once for 1 day Jul, Insurance Providers Payer Name Payer Address Payer Phone Insured Name Patient Relati onship to Insured Coverage Start Date Coverage End Date [employer] [facility] [address] [facility] [id number] EWELINA MOODY self
--- OUTSIDE RECORDS SUMMARY | 2020-09-12 06:39 | CCD ---
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 326032972 ALLERGIES Allergen (clinical drug ingredient) Drug/Non Drug Allergy do cumented on EMR Reaction Allergy Type Onset Date Status diltiazem Cartia XT([facility] Code:[address]-40) hives Drug Allergy Active ENCOUNTERS from 1960 to 2020-07-20 Encounter Location Date Provider Diagnosis [facility] Breast Care [address] [place] [address] 14 Mar, 2020 Shabnam Carrasco IMMUNIZATIONS No Information SOCIAL [...] Information RESULTS No Results REASON FOR VISIT update on ER/AL/ her2 left breast MEDICAL (GENERAL) HISTORY Type Description Date Medical [...] Insured Coverage Start Date Coverage End Date [facility] [address] [address] [facility] [phone] EWELINA MOODY self
--- OUTSIDE RECORDS SUMMARY | 2020-09-12 06:39 | CCD ---
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 622683062 ALLERGIES Allergen (clinical drug ingredient) Drug/Non Drug Allergy do cumented on EMR Reaction Allergy Type Onset Date Status diltiazem Cartia XT([facility] Code:[address]-02) hives Drug Allergy Active ENCOUNTERS from 1960 to 2020-08-15 Encounter Location Date Provider Diagnosis [facility] Breast Care [address] [place] [address] Jul, Shabnam Carrasco IMMUNIZATIONS No Information SOCIAL [...] MG 1 tablet Orally tid Active Nystatin 505612 UNIT/GM 1 application Externally Twi ce a day to bilateral breasts for 14 day(s) Jul, Active PROCEDURES No Information RESULTS No Results REASON FOR VISIT mri results MEDICAL (GENERAL) HISTORY Type Description Date Medical [...] Name Sig Start Date Stop Date Nystatin 274856 UNIT/GM 1 application Externally Twi ce a day to bilateral breasts for 14 day(s) Jul, Lidocaine-Prilocaine 2.5-2.5 % apply each tube to each nipple & surrounding breast 2 hours before coming in for SURGERY. Cover with plastic. Externally once for 1 day Jul, Next Appt Details Provider Name:Shabnam Carrasco, 07-09-14 01:30:00 PM, [address] [place] [address], [address], Provider Name:Shabnam Carrasco, 06-10-07 10:00:00 AM, [address] [place] [address], [address], Insurance Providers Payer Name Payer Address Payer Phone Insured Name Patient Relati onship to Insured Coverage Start Date Coverage End Date [employer] [facility] [address] [facility] [id number] EWELINA MOODY self
--- OUTSIDE RECORDS SUMMARY | 2020-09-12 06:39 | CCD ---
Author Author [facility] Organization [facility] Address Unknown Phone Unavailable Care Team Providers Care Control Analyst Name Role Phone DewaynemyShabnam Unavailable PROBLEMS Type Condition ICD9-CM Code [id number]-SD Code Onset Dates Condition S tatus SNOMED Code Notes Problem Hx of partial nephrectomy Z90.5 Active 242700 008 Problem Infiltrating ductal carcinoma of left breast C50.9 12 Active 056264574 Problem Type 2 diabetes mellitus wit hout complication, without long-term current use of insulin E11.9 Active 854994406 Problem 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 875279397 ALLERGIES Allergen (clinical drug ingredient) Drug/Non Drug Allergy do cumented on EMR Reaction Allergy Type Onset Date Status diltiazem Cartia XT([facility] Code:[address]-44) hives Drug Allergy Active ENCOUNTERS from 1960 to 2020-08-15 Encounter Location Date Provider Diagnosis [facility] [address] [place] [id number] Jul, Shabnam Carrasco IMMUNIZATIONS No Information SOCIAL [...] MG 1 tablet Orally tid Active Nystatin 597159 UNIT/GM 1 application Externally Twi ce a day to bilateral breasts for 14 day(s) Jul, Active PROCEDURES No Information RESULTS No Results REASON FOR VISIT breast mri MEDICAL (GENERAL) HISTORY Type Description Date Medical [...] Name Sig Start Date Stop Date Nystatin 779206 UNIT/GM 1 application Externally Twi ce a day to bilateral breasts for 14 day(s) Jul, Lidocaine-Prilocaine 2.5-2.5 % apply each tube to each nipple & surrounding breast 2 hours before coming in for SURGERY. Cover with plastic. Externally once for 1 day Jul, Next Appt Details Provider Name:Shabnam Carrasco, 07-09-14 01:30:00 PM, [address] [place] [address], [address], Provider Name:Shabnam Carrasco, 06-10-07 10:00:00 AM, [address] [place] [address], [id number], Insurance Providers Payer Name Payer Address Payer Phone Insured Name Patient Relati onship to Insured Coverage Start Date Coverage End Date [employer] [facility] [address] [facility] [id number] EWELINA MOODY self
[2020-09-12] MEDS ORDERED: LR 1,000 ML IV ONE (06:40)
[2020-09-12] MEDS ORDERED: ceFAZolin SOD 2 GM in IV 1 EA IV ONE ×2 (06:40→08:15)
[2020-09-12] MEDS ORDERED: ceFAZolin SOD 1 GM in D5W MINI-BAG PLUS 50 ML IV ONE ×3 (06:40→08:20)
[2020-09-12] MEDS ORDERED: HEPARIN SOD (PORCINE) 5000UNITS/ML 1ML VIAL/SYRINGE SQ ONE (06:40)
--- OUTSIDE RECORDS SUMMARY | 2020-09-12 06:40 | CCD ---
Author Author [facility] Syst em[facility] Organization 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 435855100 ALLERGIES Allergen (clinical drug ingredient) Drug/Non Drug Allergy do cumented on EMR Reaction Allergy Type Onset Date Status diltiazem Cartia XT([facility] Code:[address]-47) hives Drug Allergy Active ENCOUNTERS from 1960 to 2020-06-27 Encounter Location Date Provider Diagnosis [facility] Breast Care [address] [place] [address] Feb, Shabnam Carrasco IMMUNIZATIONS No Information SOCIAL HISTORY [...] Information RESULTS No Results REASON FOR VISIT MRI results, scheduling bx MEDICAL (GENERAL) HISTORY Type Description Date Medical [...] Insured Coverage Start Date Coverage End Date [facility] [address] [address] [facility] [phone] EWELINA MOODY self
--- OUTSIDE RECORDS SUMMARY | 2020-09-12 06:40 | CCD ---
Author Author [facility] Organization [facility] Address Unknown Phone Unavailable Care Team Providers Care Green Prize Packer Name Role Phone Dewaynemy Shabnam Unavailable PROBLEMS Type Condition ICD9-CM Code ZML79-TD Code Onset Dates Condition S tatus SNOMED Code Notes Problem Hx of partial nephrectomy Z90.5 Active 069186 008 Problem Infiltrating ductal carcinoma of left breast C50.9 12 Active 261354775 Problem Type 2 diabetes mellitus wit hout complication, without long-term current use of insulin E11.9 Active 338770417 Problem 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 Code:[address]-13) hives Drug Allergy Active ENCOUNTERS from 1960 to 2020-06-19 Encounter Location Date Provider Diagnosis [facility] Breast Care [address] [place] [address] 09 Mar, 2020 Shabnam Carrasco Infiltrating ductal carcinoma of left br east C50.912 ; Ductal carcinoma in situ (DCIS) of right breast D05.11 ; Palpable lymph node R59.9 ; Type [...] Information RESULTS No Results REASON FOR VISIT No Information MEDICAL (GENERAL) HISTORY Type Description Date Medical History hypertension Medical History hyperlipidemia Medical History kidney cancer Surgical History C section Surgical History hysterectomy abdominal Surgical History oophorectomy Surgical History nephrectomy Goals Section No Information Health Concerns No Information MEDICAL EQUIPMENT No Information MENTAL STATUS No Information FUNCTIONAL STATUS No Information ASSESSMENTS Encounter Date Diagnosis Assessment Notes Treatment Notes Treatm ent Clinical Notes Mar, Infiltrating ductal carcinoma of left breast (IC D-10 - C50.912) BILATERAL BREAST CANCER RIGHT DCIS GRADE [address] ER 100% CT 80% cTis cN0-1? cM0 LEFT MULTIFOCAL IDC AND DCIS GRADE 2 ER? CT? HER2? m cT2 cN0-1? cM0 PLAN: 1)Awaiting results of Left ER/CT/Her2 from [facility] 2)Awaiting genetic testing results 3)BP control per PCP, spoke to PCP personally today 4)Will reschedule for b/l LN bx with [facility] (tentatively 04-08) 5)Will need [facility] referral 6)Will wait with [facility] referral until surgical decision is finalized and LN bx/ surg path available I discussed the results of the left breast biopsy x 2 and informed patient that both of her left breasts biopsy came back as malignancy. This is consistent with what was seen on MRI of the breast. It is reasonable to believe that all the nodules seen on the MRI are malignant as well. Patient supposed to have b/l LN bx yesterday since the lymph nodes are mildly enlarged however that was cancelled due to high blood pressure yesterday. The procedure was rescheduled for Apr 08. Patient was advised yesterday to go to her PCP or to urgent care. Unfortunately, she did not go to her PCP or urgent care. Today I called her PCP and spoke with Dr Luly Galvez who asked patient to call her today to schedule urgent appointment. This was communicated with the patient. We are waiting currently for the updated ER/CT/HER2 receptors. She will need f/u with [facility] as well. I discussed with patient that base on the tumor extent she may need chemotherapy either before or after surgery. All questions were answered. Patient agrees with the plan. Mar, Ductal carcinoma in situ (DCIS) of right breast (ICD-10 - D05.11) see above Mar, Palpable lymph node (ICD-10 - R59.9) Patient had b/l axillary LN bx scheduled already with radiologybut this was cancelled due to her being hypertensive on the day of procedure. I spoke with her PCP and patient was urged to schedulle appt with PCP to regulate her blood pressure problem. The b/l axillary LN bx will be rescheduled with Radiology. Mar, Type 2 diabetes mellitus wit hout complication, without long-term current use of insulin (ICD-10 - E11.9) Patient is currently on metformin Mar, Hx of partial nephrectomy (ICD-10 - Z90.5) Patient follows with Dr Galan ( Nephrology, ) PLAN OF TREATMENT Treatment Notes Assessment Notes Clinical Notes Infiltrating ductal carcinoma of left breast BILATERAL BREAST CANCERRIGHT DCIS GRADE 2 ER 100% CT 80% cTis cN0-1? [id number] MULTIFOCAL IDC AND DCIS GRADE 2 ER? CT? HER2? m cT2 cN0-1? [id number]:1)Awaiting results of Left ER/CT/Her2 from [facility]2)Awaiting genetic testing results3)BP control per PCP, spoke to PCP personally today4)Will reschedule for b/l LN bx with [facility] (tentatively )[facility]Will [facility] referral until surgical decision is finalized and LN bx/ surg path availableI discussed the results of the left breast biopsy x 2 and informed patient that both of her left breasts biopsy came back as malignancy. This is consistent with what was seen on MRI of the breast. It is reasonable to believe that all the nodules seen on the MRI are malignant as well.Patient supposed to have b/l LN bx yesterday since the lymph nodes are mildly enlarged however that was cancelled due to high blood pressure yesterday. The procedure was rescheduled for Apr 08.Patient was advised yesterday to go to her PCP or to urgent care. Unfortunately, she did not go to her PCP or urgent care. Today I called her PCP and spoke with Dr Luly Galvez who asked patient to call her today to schedule urgent appointment. This was communicated with the patient.We are waiting currently for the updated ER/CT/HER2 receptors.She will need f/u with [facility] as well. I discussed with patient that base on the tumor extent she may need chemotherapy either before or after surgery.All questions were answered. Patient agrees with the plan. Ductal carcinoma in situ (DCIS) of right breast see above Palpable lymph node Patient had b/l axillary LN bx scheduled already with radiologybut this was cancelled due to her being hypertensive on the day of procedure. I spoke with her PCP and patient was urged to schedulle appt with PCP to regulate her blood pressure problem. The b/l axillary LN bx will be rescheduled with Radiology. Type 2 diabetes mellitus without complic ation, without long-term current use of insulin Patient is currently on metformin Hx of partial nephrectomy Patient follows with Dr Gwendolyn otoole ( Nephrology, ) Insurance Providers Payer Name Payer Address Payer Phone Insured Name Patient Relati onship to Insured Coverage Start Date Coverage End Date [facility] [address] [address] [facility] [phone] EWELINA MOODY self
--- OUTSIDE RECORDS SUMMARY | 2020-09-12 06:40 | CCD ---
Author Author 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 482120472 ALLERGIES Allergen (clinical drug ingredient) Drug/Non Drug Allergy do cumented on EMR Reaction Allergy Type Onset Date Status diltiazem Cartia XT([facility] Code:[address]-59) hives Drug Allergy Active ENCOUNTERS from 1960 to 2020-06-19 Encounter Location Date Provider Diagnosis [facility] Breast Care [address] [place] [address] 28 Mar, 2020 Shabnam Carrasco Infiltrating ductal carcinoma [...] CANCER RIGHT DCIS GRADE 2 ER 100% IA 80% cTis cN0 (s/p bx) cM0 LEFT MULTIFOCAL IDC AND DCIS GRADE 2 ER95% IA 60% HER2 POSITIVE m cT2 cN0 (s/p bx) cM0 PLAN: 1)Awaiting results of PET scan which was done today 2) Genetic testing results discussed today: no clinically significant mutation. One VUS present. 3)Planning for NAC due to HER2 POSITIVE CA, port per IR, will need Rpt MRI after NAC to assess response 4)Will wait with [facility] referral until post surgery I discussed the results of the b/l axillary bx and informed patient that both biopsies came back negative for malignancies. Copy of the report was provided to the patient. I also gave Ms. Garnett updated copy of her left breast pathology report with the receptors status which we have discussed earlier on the phone. The genetic testing was completed and is negative for clinically significant mutations. There is one VUS but I informed patient that we treat this as negative currently. She met with [facility], Dr Terry, and plan is for NAC since patient has multifocal HER2+ tumor. She will need rpt MRI after completion for treatment. I asked patient to contact my office at her last chemo treatment to assure there is no extensive lag time. Patient had opportunity to choose a wig today as well. All questions were answered. Patient agrees with the plan. Mar, Ductal carcinoma in situ (DCIS) of right breast (ICD-10 - D05.11) see above Mar, Palpable lymph node (ICD-10 - R59.9) b/l LN bx done, negative for malignancy Mar, Type 2 diabetes mellitus wit hout complication, without long-term current use of insulin (ICD-10 - E11.9) Patient is currently on metformin Mar, Hx of partial nephrectomy (ICD-10 - Z90.5) Patient follows with Dr Galan ( Nephrology, ) PLAN OF TREATMENT Treatment Notes Assessment Notes Clinical Notes Infiltrating ductal carcinoma of left breast BILATERAL BREAST CANCERRIGHT DCIS GRADE 2 ER 100% IA 80% cTis cN0 (s/p bx) [id number] MULTIFOCAL IDC AND DCIS GRADE 2 ER95% IA 60% HER2 POSITIVE m cT2 cN0 (s/p bx) [id number]:1)Awaiting results of PET scan which was done today2) Genetic testing results discussed today: no clinically significant mutation. One VUS present.3)Planning for NAC due to HER2 POSITIVE CA, port per IR, will need Rpt MRI after NAC to assess response4)Will wait with [facility] referral until post surgeryI discussed the results of the b/l axillary bx and informed patient that both biopsies came back negative for malignancies. Copy of the report was provided to the patient.I also gave Ms. Garnett updated copy of her left breast pathology report with the receptors status which we have discussed earlier on the phone.The genetic testing was completed and is negative for clinically significant mutations. There is one VUS but I informed patient that we treat this as negative currently.She met with [facility], Dr Terry, and plan is for NAC since patient has multifocal HER2+ tumor. She will need rpt MRI after completion for treatment. I asked patient to contact my office at her last chemo treatment to assure there is no extensive lag time.Patient had opportunity to choose a wig today as well.All questions were answered. Patient agrees with the plan. Ductal carcinoma in situ (DCIS) of right breast see above Palpable lymph node b/l LN bx done, negative for malignancy Type 2 diabetes mellitus without complic ation, without long-term current use of insulin Patient is currently on metformin Hx of partial nephrectomy Patient follows with Dr Gwendolyn otoole ( Nephrology, ) Insurance Providers Payer Name Payer Address Payer Phone Insured Name Patient Relati onship to Insured Coverage Start Date Coverage End Date [facility] [address] [address] [facility] [phone] EWELINA GARNETT self
--- OUTSIDE RECORDS SUMMARY | 2020-09-12 06:41 | CCD ---
Author Author [facility] Organization [facility] Address Unknown Phone Unavailable Care Team Providers Care Energy Trading Analyst Name Role Phone Kristofer Galvez MD Unavailable Unavailable Kristofer Galvez MD Unavailable Unavailable Kristofer Galvez MD Unavailable Unavailable Kristofer Galvez MD Unavailable Unavailable Kristofer Galvez MD Unavailable Unavailable Kristofer Galvez MD Unavailable Unavailable Kristofer Galvez MD Unavailable Unavailable Kristofer Galvez MD Unavailable Unavailable Kristofer Galvez MD Unavailable Unavailable Kristofer Galvez MD Unavailable Unavailable Kristofer Galvez MD Unavailable Unavailable Kristofer Galvez MD Unavailable Unavailable Kristofer Galvez MD Unavailable Unavailable Kristofer Galvez MD Unavailable Unavailable Kristofer Galvez MD Unavailable Unavailable Kristofer Galvez MD Unavailable Unavailable Kristofer Galvez MD Unavailable Unavailable Kristofer Galvez MD Unavailable Unavailable Kristofer Galvez MD Unavailable Unavailable Kristofer Galvez MD Unavailable Unavailable Kristofer Galvez MD Unavailable Unavailable Kristofer Galvez MD Unavailable Unavailable Kristofer Galvez MD Unavailable Unavailable Kristofer Galvez MD Unavailable Unavailable Kristofer Galvez MD Unavailable Unavailable Kristofer Galvez MD Unavailable Unavailable Kristofer Galvez MD Unavailable Unavailable Kristofer Galvez MD Unavailable Unavailable Kristofer Galvez MD Unavailable Unavailable Kristofer Galvez MD Unavailable Unavailable Kristofer Galvez MD Unavailable Unavailable Kristofer Galvez MD Unavailable Unavailable Kristofer Galvez MD Unavailable Unavailable Kristofer Galvez MD Unavailable Unavailable Kristofer Galvez MD Unavailable Unavailable Kristofer Galvez MD Unavailable Unavailable Kristofer Galvez MD Unavailable Unavailable Kristofer Galvez MD Unavailable Unavailable Kristofer Galvez MD Unavailable Unavailable Kristofer Galvez MD Unavailable Unavailable Kristofer Galvez MD Unavailable Unavailable Kristofer Galvez MD Unavailable Unavailable Kristofer Galvez MD Unavailable Unavailable Kristofer Galvez MD Unavailable Unavailable Kristofer Galvez MD Unavailable Unavailable Kristofer Galvez MD Unavailable Unavailable Kristofer Galvez MD Unavailable Unavailable Kristofer Galvez MD Unavailable Unavailable Kristofer Galvez MD Unavailable Unavailable Kristofer Galvez MD Unavailable Unavailable Kristofer Galvez MD Unavailable Unavailable Kristofer Galvez MD Unavailable Unavailable Kristofer Galvez MD Unavailable Unavailable Kristofer Galvez MD Unavailable Unavailable Kristofer Galvez MD Unavailable Unavailable Kristofer Galvez MD Unavailable Unavailable Krisotfer Galvez MD Unavailable Unavailable Kristofer Galvez MD Unavailable Unavailable Kristofer Galvez MD Unavailable Unavailable Kristofer Galvez MD Unavailable Unavailable Kristofer Galvez MD Unavailable Unavailable Kristofer Galvez MD Unavailable Unavailable Kristofer Galvez MD Unavailable Unavailable Kristofer Galvez MD Unavailable Unavailable Kristofer Galvez MD Unavailable Unavailable Kristofer Galvez MD Unavailable Unavailable Kristofer Galvez MD Unavailable Unavailable Kristofer Galvez MD Unavailable Unavailable Kristofer Galvez MD Unavailable Unavailable Kristofer Galvez MD Unavailable Unavailable Kristofer Galvez MD Unavailable Unavailable Kristofer Galvez MD Unavailable Unavailable Kristofer Galvez MD Unavailable Unavailable Kristofer Galvez MD Unavailable Unavailable Kristofer Galvez MD Unavailable Unavailable Kristofer Galvez MD Unavailable Unavailable Kristofer Galvez MD Unavailable Unavailable Kristofer Galvez MD Unavailable Unavailable Kristofer Galvez MD Unavailable Unavailable Kristofer Galvez MD Unavailable Unavailable Kristofer Galvez MD Unavailable Unavailable Kristofer Galvez MD Unavailable Unavailable Kristofer Galvez MD Unavailable Unavailable ADJAPONG, GARETT Unavailable Unavailable DOMBROWSKA, K ELDER DO Unavailable Unavailable DOMBROWSKA, K ELDER DO Unavailable Unavailable DOMBROWSKA, K ELDER DO Unavailable Unavailable DOMBROWSKA, K ELDER DO Unavailable Unavailable DOMBROWSKA, K ELDER DO Unavailable Unavailable DOMBROWSKA, K ELDER DO Unavailable Unavailable DOMBROWSKA, K ELDER DO Unavailable Unavailable DOMBROWSKA, K ELDER DO Unavailable Unavailable DOMBROWSKA, K ELDER DO Unavailable Unavailable DOMBROWSKA, K ELDER DO Unavailable Unavailable DOMBROWSKA, K ELDER DO Unavailable Unavailable DOMBROWSKA, K ELDER DO Unavailable Unavailable DOMBROWSKA, K ELDER DO Unavailable Unavailable DOMBROWSKA, K ELDER DO Unavailable Unavailable DOMBROWSKA, K ELDER DO Unavailable Unavailable DOMBROWSKA, K ELDER DO Unavailable Unavailable DOMBROWSKA, K ELDER DO Unavailable Unavailable Aron Esquivel MD Unavailable Unavailable Aron Esquivel MD Unavailable Unavailable Aron Esquivel MD Unavailable Unavailable Aron Esquivel MD Unavailable Unavailable Aron Esquivel MD Unavailable Unavailable Aron Esquivel MD Unavailable Unavailable Aron Esquivel MD Unavailable Unavailable Aron Esquivel MD Unavailable Unavailable Aron Esquivel MD Unavailable Unavailable Aron Esquivel MD Unavailable Unavailable Aron sEquivel MD Unavailable Unavailable Aron Esquivel MD Unavailable Unavailable Aron Esquivel MD Unavailable Unavailable rAon Esquivel MD Unavailable Unavailable Aron Esquivel MD Unavailable Unavailable Aron Esquivel MD Unavailable Unavailable Salzhauer, Aron Zapien MD Unavailable Unavailable Salzhauer, Aron Zapien MD Unavailable Unavailable Salzhauer, Aron Zapien MD Unavailable Unavailable Salzhauer, Aron Zapien MD Unavailable Unavailable Salzhauer, Aron Zapien MD Unavailable Unavailable Salzhauer, Aron Zapien MD Unavailable Unavailable Salzhauer, Aron Zapien MD Unavailable Unavailable Salzhauer, Aron Zapien MD Unavailable Unavailable Salzhauer, Aron Zapien MD Unavailable Unavailable Salzhauer, Aron Zapien MD Unavailable Unavailable Salzhauer, Aron Zapien MD Unavailable Unavailable Salzhauer, Aron Zapien MD Unavailable Unavailable Salzhauer, Aron Zapien MD Unavailable Unavailable Salzhauer, Aron Zapien MD Unavailable Unavailable Salzhauer, Aron Zapien MD Unavailable Unavailable Salzhauer, Aron Zapien MD Unavailable Unavailable Salzhauer, Aron Zapien MD Unavailable Unavailable Salzhauer, Aron Zapien MD Unavailable Unavailable Salzhauer, Aron Zapien MD Unavailable Unavailable Salzhauer, Aron Zapien MD Unavailable Unavailable Salzhauer, Aron Zapien MD Unavailable Unavailable Salzhauer, Aron Zapien MD Unavailable Unavailable Salzhauer, Aron Zapien MD Unavailable Unavailable Salzhauer, Aron Zapien MD Unavailable Unavailable Salzhauer, Aron Zapien MD Unavailable Unavailable Salzhauer, Aron Zapien MD Unavailable Unavailable Salzhauer, Aron Zapien MD Unavailable Unavailable Salzhauer, Aron Zapien MD Unavailable Unavailable Salzhauer, Aron Zapien MD Unavailable Unavailable Salzhauer, Aron Zapien MD Unavailable Unavailable Salzhauer, Aron Zapien MD Unavailable Unavailable Salzhauer, Aron Zapien MD Unavailable Unavailable Salzhauer, Aron Zapien MD Unavailable Unavailable Salzhauer, Aron Zapien MD Unavailable Unavailable Salzhauer, Aron Zapien MD Unavailable Unavailable Salzhauer, Aron Zapien MD Unavailable Unavailable Salzhauer, Aron Zapien MD Unavailable Unavailable Salzhauer, Aron Zapien MD Unavailable Unavailable Salzhauer, Aron Zapien MD Unavailable Unavailable Salzhauer, Aron Zapien MD Unavailable Unavailable Salzhauer, Aron Zapien MD Unavailable Unavailable Salzhauer, Aron Zapien MD Unavailable Unavailable Salzhauer, Aron Zapien MD Unavailable Unavailable Salzhauer, Aron Zapien MD Unavailable Unavailable Salzhauer, Aron Zapien MD Unavailable Unavailable Salzhauer, W Curry MD Unavailable Unavailable Salzhauer, W Curry MD Unavailable Unavailable Salzhauer, W Curry MD Unavailable Unavailable Salzhauer, W Curry MD Unavailable Unavailable Salzhauer, W Curry MD Unavailable Unavailable Salzhauer, W Curry MD Unavailable Unavailable Salzhauer, W Curry MD Unavailable Unavailable Salzhauer, W Curry MD Unavailable Unavailable Salzhauer, W Curry MD Unavailable Unavailable Salzhauer, W Curry MD Unavailable Unavailable Salzhauer, W Curry MD Unavailable Unavailable Salzhauer, W Curry MD Unavailable Unavailable Salzhauer, W Curry MD Unavailable Unavailable Salzhauer, W Curry MD Unavailable Unavailable Salzhauer, W Curry MD Unavailable Unavailable Salzhauer, W Curry MD Unavailable Unavailable Re-disclosure Warning The records that you are about to access may contain information from federally-assisted alcohol or drug abuse programs. If such information is present, then the following federally mandated warning applies: This information has been disclosed to you from records protected by federal confidentiality rules (42 CFR part 2). The federal rules prohibit you from making any further disclosure of this information unless further disclosure is expressly permitted by the written consent of the person to whom it pertains or as otherwise permitted by 42 CFR part 2. A general authorization for the release of medical or other information is NOT sufficient for this purpose. The Federal rules restrict any use of the information to criminally investigate or prosecute any alcohol or drug abuse patient.The records that you are about to access may contain highly sensitive health information, the redisclosure of which is protected by Article 27-F of the [facility] Public Health law. If you continue you may have access to information: Regarding HIV / AIDS; Provided by facilities licensed or operated by the [facility] Office of Mental Health; or Provided by the [facility] Office for People With Developmental Disabilities. If such information is present, then the following [facility] mandated warning applies: This information has been disclosed to you from confidential records which are protected by state law. State law prohibits you from making any further disclosure of this information without the specific written consent of the person to whom it pertains, or as otherwise permitted by law. Any unauthorized further disclosure in violation of state law may result in a fine or fci sentence or both. A general authorization for the release of medical or other information is NOT sufficient authorization for further disc losure. Family History Family Member Name Family Member Gender Family Member Status Date o f Status Description Data Source(s) [facility] Unknown Male Problem [facility] () Unknown Female Problem [facility] Unknown Unknown Problem [facility] ([facility] Encounters Encounter Providers Location Date Indications Data Source(s ) Outpatient Attender: Luly MOISEeferrer: Luly wayne MD 09/10/2020 02:03:00 PM EST - 09/10/2020 02:21:00 PM EST [facility] Unknown [address] [facility] [address] 09/08/2020 12:00:00 AM EST eCW1 ([facility]) Unknown [address] [facility] [address] 09/05/2020 12:00:00 AM EST eCW1 ([facility]) Outpatient Attender: Luly Mgerrer: Luly wayne MD 09/03/2020 12:55:00 PM EST - 09/03/2020 01:21:00 PM EST [facility] Outpatient Attender: Luly MOISEeferrer: Luly wayne MD 08/27/2020 02:28:00 PM EST - 08/27/2020 03:00:00 PM EST [facility] Unknown [address] [facility] [id number] 08/27/2020 12:00:00 AM EST [facility] Outpatient Attender: Luly Galvez MD 08/25/2020 01:32:0 0 PM EST [place] [facility] [place] Unknown [address] [facility] [id number] 08/25/2020 12:00:00 AM EST eCW1 ([facility]) Outpatient Attender: Luly Galvez MD 08/22/2020 11:14:0 0 AM EST PRE OP HTN [facility] PRE OP HTN Outpatient Attender: Luly Galvez MDReferrer: Luly awyne MD 08/22/2020 10:32:00 AM EST - 08/22/2020 11:11:00 AM EST [facility] Unknown [address] [facility] [address] 08/20/2020 12:00:00 AM EST eCW1 ([facility]) Unknown [address] [facility] [address] 08/11/2020 12:00:00 AM EST eCW1 ([facility]) Unknown [address] [facility] [address] 08/11/2020 12:00:00 AM EST eCW1 ([facility]) Unknown [address] [facility] [address] 07/28/2020 12:00:00 AM EST eCW1 ([facility]) Outpatient [address] [facility] [address] 07/28/2020 12:00:00 AM EST eCW1 ([facility]) Outpatient Attender: Luly Galvez MDReferrer: Lluy wayne MD 05/23/2020 09:53:00 AM EST - 05/23/2020 10:15:00 AM EST [facility] Outpatient [address] [facility] [address] 04/14/2020 12:00:00 AM EDT eCW1 ([facility]) Outpatient Attender: Luly Galvez MDReferrer: Luly wayne MD 03/31/2020 09:30:00 AM EDT - 03/31/2020 09:58:00 AM EDT [facility] Unknown [address] [facility] [address] 03/31/2020 12:00:00 AM EDT eCW1 ([facility]) Outpatient Attender: Luly MOISEeferrer: Luly wayne MD 03/27/2020 09:53:00 AM EDT - 03/27/2020 10:28:00 AM EDT [facility] Outpatient Admitter: GARETT DEVONReferrer: GARETT DE LA TORREDARIELA 03/26/2020 12:00:00 AM EDT Malignant neoplasm of unspecified site o f unspecified female breast [facility] [place] Malignant neoplasm of unspecified site o f unspecified female breast Outpatient [address] [facility] [address] 03/26/2020 12:00:00 AM EDT eCW1 ([facility]) Unknown [address] [facility] [address] 03/19/2020 12:00:00 AM EDT eCW1 ([facility]) Unknown [address] [facility] [address] 03/12/2020 12:00:00 AM EDT eCW1 ([facility]) Outpatient Attender: Curry Esquivel MD [place]/ [facility] 03/06/2020 09:30:00 AM EDT [facility] ([facility]) Outpatient 01/11/2020 04:56:00 AM EDT [facility] Outpatient [address] [facility] [address] 01/04/2020 12:00:00 AM EDT eCW1 ([facility]) Outpatient Admitter: ELDER VALERA DOReferrer: CY VALERA DO 01/02/2020 12:00:00 AM EDT Malignant neoplasm of unspecified site o f unspecified female [facility] Malignant neoplasm of unspecified site o f unspecified female breast Unknown [address] [facility] [address] 12/27/2019 12:00:00 AM EDT eCW1 ([facility]) Unknown [address] [facility] [address] 12/25/2019 12:00:00 AM EDT eCW1 ([facility]) Outpatient [address] [facility] [address] 12/17/2019 12:00:00 AM EDT eCW1 ([facility]) Outpatient Attender: Luly Galvez MD 11/27/2019 0 8:28:00 AM EDT RT SIDE X VIEW [facility] RT SIDE X VIEW Outpatient Attender: Luly Galvez MD 11/21/2019 0 9:32:00 AM EDT SCREENING Z12.31,R73.09 [facility] SCREENING Z12.31,R73.09 Outpatient Attender: Luly Galvez MD 07/2019 10:21:00 AM EDT - 11/16/2019 10:55:00 AM EDT [facility] Medic[facility] Medication Brand Name Start Date Product Form Dose Route Admi nistrative Instructions Pharmacy Instructions Status Indications Reaction Description Data Source(s) Hydralazine Hydrochloride 25 MG Oral Tablet Hydralazine HCL 09/02/2020 12:00:00 AM EST ORAL active [facility]) Fluconazole 150 MG Oral Tablet Fluconazole 150 MG 08/26/2020 12:00: 00 AM EST 1.0 {tablet} active Fluconazole 150 MG eCW1 ([facility]) Nystatin 100 UNT/MG Topical Powder Nystatin 072930 UNI T/GM Nystatin 960027 UNIT/GM 08/26/2020 12:00:00 AM EST 1.0 {application} suspended Nystatin 319362 UNIT/GM eCW1 ([facility]) Nystatin 100 UNT/MG Topical Powder Nystatin 714280 UNI T/GM Nystatin 006108 UNIT/GM 08/26/2020 12:00:00 AM EST 1.0 {application} active Nystatin 577895 UNIT/GM eCW1 ([facility]) Nystatin 100 UNT/MG Topical Powder Nystatin 128687 UNI T/GM Nystatin 165538 UNIT/GM 08/26/2020 12:00:00 AM EST 1.0 {application} suspended Nystatin 290037 UNIT/GM eCW1 ([facility]) Fluconazole 150 MG Oral Tablet Fluconazole 150 MG 08/26/2020 12:00: 00 AM EST 1.0 {tablet} suspended Fluconazole 150 M G eCW1 ([facility]) Fluconazole 150 MG Oral Tablet Fluconazole 150 MG 08/26/2020 12:00: 00 AM EST 1.0 {tablet} suspended Fluconazole 150 M G eCW1 ([facility]) Fluconazole 150 MG Oral Tablet Fluconazole 150 MG 08/26/2020 12:00: 00 AM EST 1.0 {tablet} suspended Fluconazole 150 M G eCW1 ([facility]) Nystatin 100 UNT/MG Topical Powder Nystatin 481552 UNI T/GM Nystatin 153947 UNIT/GM 08/26/2020 12:00:00 AM EST 1.0 {application} suspended Nystatin 302807 UNIT/GM eCW1 ([facility]) Lisinopril 20 MG Oral Tablet Lisinopril 08/13/2020 11:06:18 AM EST 20 MG active [facility] Lisinopril 20 MG Oral Tablet Lisinopril 08/13/2020 11:06:18 AM EST 20 MG active [facility] Lidocaine 25 MG/ML / Prilocaine 25 MG/ML Topical Cream Lidocaine-Prilocaine 2.5- 2.5 % Lidocaine-Prilocaine 2.5-2.5 % 08/03/2020 12:00:00 AM EST active Lidocaine-Prilocaine 2.5-2.5 % e 1 ([facility]) Lidocaine 25 MG/ML / Prilocaine 25 MG/ML Topical Cream Lidocaine-Prilocaine 2.5- 2.5 % Lidocaine-Prilocaine 2.5-2.5 % 08/03/2020 12:00:00 AM EST active Lidocaine-Prilocaine 2.5-2.5 % e CW1 ([facility]) Lidocaine 25 MG/ML / Prilocaine 25 MG/ML Topical Cream Lidocaine-Prilocaine 2.5- 2.5 % Lidocaine-Prilocaine 2.5-2.5 % 08/03/2020 12:00:00 AM EST active Lidocaine-Prilocaine 2.5-2.5 % e CW1 ([facility]) Lidocaine 25 MG/ML / Prilocaine 25 MG/ML Topical Cream Lidocaine-Prilocaine 2.5- 2.5 % Lidocaine-Prilocaine 2.5-2.5 % 08/03/2020 12:00:00 AM EST active Lidocaine-Prilocaine 2.5-2.5 % e CW1 ([facility]) Lidocaine 25 MG/ML / Prilocaine 25 MG/ML Topical Cream Lidocaine-Prilocaine 2.5- 2.5 % Lidocaine-Prilocaine 2.5-2.5 % 08/03/2020 12:00:00 AM EST active Lidocaine-Prilocaine 2.5-2.5 % e CW1 ([facility]) Lidocaine 25 MG/ML / Prilocaine 25 MG/ML Topical Cream Lidocaine-Prilocaine 2.5- 2.5 % Lidocaine-Prilocaine 2.5-2.5 % 08/03/2020 12:00:00 AM EST active Lidocaine-Prilocaine 2.5-2.5 % e CW1 ([facility]) Lidocaine 25 MG/ML / Prilocaine 25 MG/ML Topical Cream Lidocaine-Prilocaine 2.5- 2.5 % Lidocaine-Prilocaine 2.5-2.5 % 08/03/2020 12:00:00 AM EST active Lidocaine-Prilocaine 2.5-2.5 % e CW1 ([facility]) Metformin 07/31/2020 02:57:56 PM EST 0 active [facility] Metformin 07/31/2020 02:57:56 PM EST 0 active [facility] Clonidine Hydrochloride 0.3 MG Oral Tablet Clonidine Hcl Magaly nidine Hcl 07/31/2020 02:32:31 PM EST 0.3 MG active [facility] Clonidine Hydrochloride 0.3 MG Oral Tablet Clonidine Hcl Magaly nidine Hcl 07/31/2020 02:32:31 PM EST 0.3 MG active [facility] Nystatin 100 UNT/MG Topical Powder Nystatin 152586 UNI T/GM Nystatin 693116 UNIT/GM 07/28/2020 12:00:00 AM EST 1.0 {application} active Nystatin 719463 UNIT/GM eCW1 ([facility]) Nystatin 100 UNT/MG Topical Powder Nystatin 285454 UNI T/GM Nystatin 971985 UNIT/GM 07/28/2020 12:00:00 AM EST 1.0 {application} active Nystatin 588770 UNIT/GM eCW1 ([facility]) Nystatin 100 UNT/MG Topical Powder Nystatin 612150 UNI T/GM Nystatin 840568 UNIT/GM 07/28/2020 12:00:00 AM EST 1.0 {application} active Nystatin 105025 UNIT/GM eCW1 ([facility]) Nystatin 100 UNT/MG Topical Powder Nystatin 879902 UNI T/GM Nystatin 630576 UNIT/GM 07/28/2020 12:00:00 AM EST 1.0 {application} active Nystatin 243490 UNIT/GM eCW1 ([facility]) Nystatin 100 UNT/MG Topical Powder Nystatin 899390 UNI T/GM Nystatin 936640 UNIT/GM 07/28/2020 12:00:00 AM EST 1.0 {application} active Nystatin 277391 UNIT/GM eCW1 ([facility]) Nystatin 100 UNT/MG Topical Powder Nystatin 994127 UNI T/GM Nystatin 852357 UNIT/GM 07/28/2020 12:00:00 AM EST 1.0 {application} active Nystatin 228568 UNIT/GM eCW1 ([facility]) Nystatin 100 UNT/MG Topical Powder Nystatin 383016 UNI T/GM Nystatin 259076 UNIT/GM 07/28/2020 12:00:00 AM EST 1.0 {application} active Nystatin 087687 UNIT/GM eCW1 ([facility]) Nystatin 100 UNT/MG Topical Powder Nystatin 672807 UNI T/GM Nystatin 355974 UNIT/GM 07/28/2020 12:00:00 AM EST 1.0 {application} active Nystatin 754028 UNIT/GM eCW1 ([facility]) Nystatin 100 UNT/MG Topical Powder Nystatin 636041 UNI T/GM Nystatin 480447 UNIT/GM 07/28/2020 12:00:00 AM EST 1.0 {application} active Nystatin 602333 UNIT/GM eCW1 ([facility]) Clonidine Hydrochloride 0.3 MG Oral Tablet Clonidine Hcl Magaly nidine Hcl 06/30/2020 09:12:04 AM EST 0 completed [facility] Clonidine Hydrochloride 0.3 MG Oral Tablet Clonidine Hcl Magaly nidine Hcl 06/30/2020 09:12:04 AM EST 0 completed [facility] Potassium Chloride 20 MEQ Extended Release Oral Tablet Potas sium Chloride 05/23/2020 03:00:53 PM EST 20 MEQ active [facility] Potassium Chloride 20 MEQ Extended Release Oral Tablet Potas sium Chloride 05/23/2020 03:00:53 PM EST 20 MEQ active [facility] Dexamethasone 4 MG Oral Tablet Dexamethasone 05/23/2020 10:00:51 AM EST completed [facility] Dexamethasone 4 MG Oral Tablet Dexamethasone 05/23/2020 10:00:51 AM EST active [facility] Dexamethasone 4 MG Oral Tablet Dexamethasone 05/23/2020 10:00:51 AM EST completed [facility] Ondansetron 8 MG Disintegrating Oral Tablet Ondansetron 05/23/2020 10:00:29 AM EST completed [facility] Ondansetron 8 MG Disintegrating Oral Tablet Ondansetron 05/23/2020 10:00:29 AM EST completed [facility] Ondansetron 8 MG Disintegrating Oral Tablet Ondansetron 05/23/2020 10:00:29 AM EST active [facility] Pravastatin Sodium 40 MG Oral Tablet Pravastatin 05/19/2020 03:52: 59 PM EST 40 MG active [facility] Pravastatin Sodium 40 MG Oral Tablet Pravastatin 05/19/2020 03:52: 59 PM EST 40 MG active [facility] Pravastatin Sodium 40 MG Oral Tablet Pravastatin 05/19/2020 03:52: 59 PM EST 40 MG active [facility] Potassium Chloride 20 MEQ Extended Release Oral Tablet Potas sium Chloride 05/14/2020 08:36:43 AM EDT 20 MEQ completed [facility] [facility] Potassium Chloride 20 MEQ Extended Release Oral Tablet Potas sium Chloride 05/14/2020 08:36:43 AM EDT 20 MEQ completed [facility] Potassium Chloride 20 MEQ Extended Release Oral Tablet Potas sium Chloride 05/14/2020 08:36:43 AM EDT 20 MEQ active [facility] 24 HR Metformin hydrochloride 500 MG Extended Release Oral T ablet Metformin 04/07/2020 09:21:39 AM EDT 500 MG completed [facility] 24 HR Metformin hydrochloride 500 MG Extended Release Oral T ablet Metformin 04/07/2020 09:21:39 AM EDT 500 MG completed [facility] 24 HR Metformin hydrochloride 500 MG Extended Release Oral T ablet Metformin 04/07/2020 09:21:39 AM EDT 500 MG active [facility] Clonidine Hydrochloride 0.3 MG Oral Tablet Clonidine Hcl Magaly nidine Hcl 03/27/2020 10:25:35 AM EDT 0.3 MG active [facility] Clonidine Hydrochloride 0.3 MG Oral Tablet Clonidine Hcl Magaly nidine Hcl 03/27/2020 10:25:35 AM EDT 0.3 MG completed [facility] Clonidine Hydrochloride 0.3 MG Oral Tablet Clonidine Hcl Magaly nidine Hcl 03/27/2020 10:25:35 AM EDT 0.3 MG active [facility] Clonidine Hydrochloride 0.3 MG Oral Tablet Clonidine Hcl Magaly nidine Hcl 03/27/2020 10:25:35 AM EDT 0.3 MG completed [facility] Clonidine Hydrochloride 0.3 MG Oral Tablet Clonidine Hcl Magaly nidine Hcl 03/27/2020 10:25:35 AM EDT 0.3 MG active [facility] Lisinopril 20 MG Oral Tablet Lisinopril 01/01/2020 10:58:21 AM EDT 20 MG active [facility] Lisinopril 20 MG Oral Tablet Lisinopril 01/01/2020 10:58:21 AM EDT 20 MG active [facility] Lisinopril 20 MG Oral Tablet Lisinopril 01/01/2020 10:58:21 AM EDT 20 MG completed [facility] Lisinopril 20 MG Oral Tablet Lisinopril 01/01/2020 10:58:21 AM EDT 20 MG active [facility] Lisinopril 20 MG Oral Tablet Lisinopril 01/01/2020 10:58:21 AM EDT 20 MG completed [facility] Potassium Chloride 20 MEQ Extended Release Oral Tablet Potas sium Chloride 12/21/2019 10:30:07 AM EDT 20 MEQ completed [facility] Potassium Chloride 20 MEQ Extended Release Oral Tablet Potas sium Chloride 12/21/2019 10:30:07 AM EDT 20 MEQ completed [facility] Potassium Chloride 20 MEQ Extended Release Oral Tablet Potas sium Chloride 12/21/2019 10:30:07 AM EDT 20 MEQ completed [facility] Potassium Chloride 20 MEQ Extended Release Oral Tablet Potas sium Chloride 12/21/2019 10:30:07 AM EDT 20 MEQ active [facility] Potassium Chloride 20 MEQ Extended Release Oral Tablet Potas sium Chloride 12/21/2019 10:30:07 AM EDT 20 MEQ active [facility] Pravastatin Sodium 40 MG Oral Tablet Pravastatin 12/17/2019 10:45: 20 AM EDT 40 MG completed [facility] Pravastatin Sodium 40 MG Oral Tablet Pravastatin 12/17/2019 10:45: 20 AM EDT 40 MG completed [facility] Pravastatin Sodium 40 MG Oral Tablet Pravastatin 12/17/2019 10:45: 20 AM EDT 40 MG active [facility] Pravastatin Sodium 40 MG Oral Tablet Pravastatin 12/17/2019 10:45: 20 AM EDT 40 MG completed [facility] Pravastatin Sodium 40 MG Oral Tablet Pravastatin 12/17/2019 10:45: 20 AM EDT 40 MG active [facility] 24 HR Metformin hydrochloride 500 MG Extended Release Oral T ablet Metformin 12/12/2019 01:54:14 PM EDT 500 MG active [facility] 24 HR Metformin hydrochloride 500 MG Extended Release Oral T ablet Metformin 12/12/2019 01:54:14 PM EDT 500 MG completed [facility] 24 HR Metformin hydrochloride 500 MG Extended Release Oral T ablet Metformin 12/12/2019 01:54:14 PM EDT 500 MG completed [facility] 24 HR Metformin hydrochloride 500 MG Extended Release Oral T ablet Metformin 12/12/2019 01:54:14 PM EDT 500 MG [facility] 24 HR Metformin hydrochloride 500 MG Extended Release Oral T ablet Metformin 12/12/2019 01:54:14 PM EDT 500 MG active [facility] 24 HR metoprolol succinate 100 MG Extend ed Release Oral Tablet Metoprolol Succinate Metoprolol Succinate 09/10/2019 08:21:17 AM EST 100 MG active [facility] 24 HR metoprolol succinate 100 MG Extend ed Release Oral Tablet Metoprolol Succinate Metoprolol Succinate 09/10/2019 08:21:17 AM EST 100 MG active [facility] 24 HR metoprolol succinate 100 MG Extend ed Release Oral Tablet Metoprolol Succinate Metoprolol Succinate 09/10/2019 08:21:17 AM EST 100 MG active [facility] 24 HR metoprolol succinate 100 MG Extend ed Release Oral Tablet Metoprolol Succinate Metoprolol Succinate 09/10/2019 08:21:17 AM EST 100 MG [facility] 24 HR metoprolol succinate 100 MG Extend ed Release Oral Tablet Metoprolol Succinate Metoprolol Succinate 09/10/2019 08:21:17 AM EST 100 MG [facility] 24 HR metoprolol succinate 100 MG Extend ed Release Oral Tablet Metoprolol Succinate Metoprolol Succinate 09/10/2019 08:21:17 AM EST 100 MG [facility] Hydrochlorothiazide 25 MG / Triamterene 37.5 MG Oral Tablet Triamterene-Hydrochlorothiazid Triamterene-Hydrochlorothiazid 07/24/2019 04:02:34 PM EST 1 TAB active [facility] Hydrochlorothiazide 25 MG / Triamterene 37.5 MG Oral Tablet Triamterene-Hydrochlorothiazid Triamterene-Hydrochlorothiazid 07/24/2019 04:02:34 PM EST 1 TAB active [facility] Hydrochlorothiazide 25 MG / Triamterene 37.5 MG Oral Tablet Triamterene-Hydrochlorothiazid Triamterene-Hydrochlorothiazid 07/24/2019 04:02:34 PM EST 1 TAB active [facility] Hydrochlorothiazide 25 MG / Triamterene 37.5 MG Oral Tablet Triamterene-Hydrochlorothiazid Triamterene-Hydrochlorothiazid 07/24/2019 04:02:34 PM EST 1 TAB active [facility] Hydrochlorothiazide 25 MG / Triamterene 37.5 MG Oral Tablet Triamterene-Hydrochlorothiazid Triamterene-Hydrochlorothiazid 07/24/2019 04:02:34 PM EST 1 TAB active [facility] Hydrochlorothiazide 25 MG / Triamterene 37.5 MG Oral Tablet Triamterene-Hydrochlorothiazid Triamterene-Hydrochlorothiazid 07/24/2019 04:02:34 PM EST 1 TAB active [facility] Clonidine Hydrochloride 0.2 MG Oral Tablet Clonidine Hcl Magaly nidine Hcl 06/26/2019 11:29:47 AM EST 0.2 MG completed [facility] Clonidine Hydrochloride 0.2 MG Oral Tablet Clonidine Hcl Magaly nidine Hcl 06/26/2019 11:29:47 AM EST 0.2 MG completed [facility] Clonidine Hydrochloride 0.2 MG Oral Tablet Clonidine Hcl Magaly nidine Hcl 06/26/2019 11:29:47 AM EST 0.2 MG [facility] 24 HR Metformin hydrochloride 500 MG Extended Release Oral T ablet Metformin 06/26/2019 09:22:22 AM EST 500 MG completed [facility] 24 HR Metformin hydrochloride 500 MG Extended Release Oral T ablet Metformin 06/26/2019 09:22:22 AM EST 500 MG completed [facility] 24 HR Metformin hydrochloride 500 MG Extended Release Oral T ablet Metformin 06/26/2019 09:22:22 AM EST 500 MG [facility] 24 HR Metformin hydrochloride 500 MG Extended Release Oral T ablet Metformin 06/26/2019 09:22:22 AM EST 500 MG [facility] 24 HR Metformin hydrochloride 500 MG Extended Release Oral T ablet Metformin 06/26/2019 09:22:22 AM EST 500 MG [facility] Pravastatin Sodium 40 MG Oral Tablet Pravastatin 06/21/2019 08:41: 44 AM EST 40 MG completed [facility] Pravastatin Sodium 40 MG Oral Tablet Pravastatin 06/21/2019 08:41: 44 AM EST 40 MG [facility] Pravastatin Sodium 40 MG Oral Tablet Pravastatin 06/21/2019 08:41: 44 AM EST 40 MG [facility] Pravastatin Sodium 40 MG Oral Tablet Pravastatin 06/21/2019 08:41: 44 AM EST 40 MG completed [facility] Pravastatin Sodium 40 MG Oral Tablet Pravastatin 06/21/2019 08:41: 44 AM EST 40 MG [facility] Hydrochlorothiazide 25 MG / Triamterene 37.5 MG Oral Tablet Triamterene-Hydrochlorothiazid Triamterene-Hydrochlorothiazid 06/13/2019 11:12:11 AM EST 1 TAB completed [facility] Hydrochlorothiazide 25 MG / Triamterene 37.5 MG Oral Tablet Triamterene-Hydrochlorothiazid Triamterene-Hydrochlorothiazid 06/13/2019 11:12:11 AM EST 1 TAB completed [facility] Hydrochlorothiazide 25 MG / Triamterene 37.5 MG Oral Tablet Triamterene-Hydrochlorothiazid Triamterene-Hydrochlorothiazid 06/13/2019 11:12:11 AM EST 1 TAB completed [facility] Hydrochlorothiazide 25 MG / Triamterene 37.5 MG Oral Tablet Triamterene-Hydrochlorothiazid Triamterene-Hydrochlorothiazid 06/13/2019 11:12:11 AM EST 1 TAB completed [facility] Hydrochlorothiazide 25 MG / Triamterene 37.5 MG Oral Tablet Triamterene-Hydrochlorothiazid Triamterene-Hydrochlorothiazid 06/13/2019 11:12:11 AM EST 1 TAB completed [facility] Hydrochlorothiazide 25 MG / Triamterene 37.5 MG Oral Tablet Triamterene-Hydrochlorothiazid Triamterene-Hydrochlorothiazid 06/13/2019 11:12:11 AM EST 1 TAB completed [facility] Lisinopril 20 MG Oral Tablet Lisinopril 05/15/2019 01:52:13 PM EDT 20 MG completed [facility] Lisinopril 20 MG Oral Tablet Lisinopril 05/15/2019 01:52:13 PM EDT 20 MG [facility] Lisinopril 20 MG Oral Tablet Lisinopril 05/15/2019 01:52:13 PM EDT 20 MG [facility] Lisinopril 20 MG Oral Tablet Lisinopril 05/15/2019 01:52:13 PM EDT 20 MG [facility] Lisinopril 20 MG Oral Tablet Lisinopril 05/15/2019 01:52:13 PM EDT 20 MG [facility] 24 HR metoprolol succinate 100 MG Extend ed Release Oral Tablet Metoprolol Succinate Metoprolol Succinate 09/14/2018 05:23:00 PM EST 100 MG completed [facility] 24 HR metoprolol succinate 100 MG Extend ed Release Oral Tablet Metoprolol Succinate Metoprolol Succinate 09/14/2018 05:23:00 PM EST 100 MG completed [facility] 24 HR metoprolol succinate 100 MG Extend ed Release Oral Tablet Metoprolol Succinate Metoprolol Succinate 09/14/2018 05:23:00 PM EST 100 MG completed [facility] 24 HR metoprolol succinate 100 MG Extend ed Release Oral Tablet Metoprolol Succinate Metoprolol Succinate 09/14/2018 05:23:00 PM EST 100 MG completed [facility] 24 HR metoprolol succinate 100 MG Extend ed Release Oral Tablet Metoprolol Succinate Metoprolol Succinate 09/14/2018 05:23:00 PM EST 100 MG completed [facility] 24 HR metoprolol succinate 100 MG Extend ed Release Oral Tablet Metoprolol Succinate Metoprolol Succinate 09/14/2018 05:23:00 PM EST 100 MG completed [facility] Potassium Chloride 20 MEQ Extended Release Oral Tablet Potas sium Chloride 09/01/2018 11:48:00 AM EST 20 MEQ completed [facility] Potassium Chloride 20 MEQ Extended Release Oral Tablet Potas sium Chloride 09/01/2018 11:48:00 AM EST 20 MEQ completed [facility] Potassium Chloride 20 MEQ Extended Release Oral Tablet Potas sium Chloride 09/01/2018 11:48:00 AM EST 20 MEQ completed [facility] Potassium Chloride 20 MEQ Extended Release Oral Tablet Potas sium Chloride 09/01/2018 11:48:00 AM EST 20 MEQ completed [facility] Potassium Chloride 20 MEQ Extended Release Oral Tablet Potas sium Chloride 09/01/2018 11:48:00 AM EST 20 MEQ completed [facility] Insurance Providers Payer name Policy type / Coverage type Policy ID Covered alliance party ID Covered alliance party's relationship to vaughn Policy [place]n Plan Information [employer] [place] [id number] [facility] [id number] [facility] [id number] [facility] [id number] [facility] O [id number] S [id number] [employer] [place] [id number] HU2 [id number] [facility] [id number] [employer] [place] O [id number] S [id number] [employer] [place] [id number] [id number] [employer] [place] [id number] HU2 [id number] [employer] [place] [id number] [id number] R [facility] [id number] HU2 [id number] UMR U [id number] Spouse [id number] R [facility] [id number] HU2 [id number] R O [id number] S [id number] [facility] [id number] SP [id number] BCBS EMPIRE [place] DIV [id number] HU2 [id number] EXCELLUS H [id number] Spouse [id number] BCBS of [facility] [place] Other [id number] F amily Dependent [place]eto [place] [id number] BCBS of [facility] [place] Other [id number] F amily Dependent [place] [id number] BCBS of [facility] [place] Other [id number] F amily Dependent [place] [id number] BCBS of [facility] [place] Other [id number] F amily Dependent [place]eto [place] [id number] BCBS of [facility] [place] Other [id number] F amily Dependent Veto [place] [id number] BCBS of [facility] [place] Other [id number] F amily Dependent Veto [place] [id number] [employer] [id number] Self [id number] BCBS [place] Medigap Part B [id number] Self [id number] [id number] BCBS [facility] Commercial [id number] Family Dependent [id number] BCBS of [facility] [place] Other [id number] F amily Dependent Veto [place] [id number] BCBS of [facility] [place] Other [id number] F amily Dependent Veto [place] [id number] [place] BC/BS [place] Medigap Part B [id number] Family De pendent [id number] BS Of [place] Commercial [id number] Family Depende nt [id number] BCBS of [facility] [place] Other [id number] F amily Dependent Veto [place] [id number] BCBS of [place] Other [id number] F amily Dependent Veto [place] [id number] [employer] of [place] Other [id number] Self [id number] [employer] of [place] Other [id number] Self [id number] EXCELLUS BCBS [id number] Spo [id number] [place] BC/BS [place] Posto7 [id number] Family Depend ent [id number] BCBS of [place] Other 0 Self 0 [place] of [place] Other 0 Self 0 [place] of [place] Other 0 Self 0 [place] Other 0 Self 0 [place] BC/BS Departing [id number] Family Depend ent [id number] [facility] UNAVAILABLE UNAVAILABLE Excellus [place] Commercial [id number] Family Dependent [id number] BCBS of [place] Other 0 Self 0 [place] of [place] Other 0 Self 0 [place] of [place] Other 0 Self 0 [place] of [place] Other 0 Self 0 BCBS [place] Other 0 Self 0 [place] Other 0 Self 0 [place] Other 0 Self 0 [place] Other 0 Self 0 [place] Other 0 Self 0 [place] Other 0 Self 0 [place] Other 0 Self 0 [place] Other 0 Self 0 Cigna Medigap Part B Self [place] Self MICHELLE MEDICAID [id number] Carina 7 [id number] BCBS Of [place] Medigap Part B Self SELF PAY 2 UNAVAILABLE 1 UNAVAILA BLE MICHELLE MEDICAID 2 [id number] Problems, Conditions, and Diagnoses Code Display Name Description Problem Type Effective Dates Data Source(s) 931522708 Preoperative cardiovascular examination Preoperative cardiovascular examination Problem 09/02/2020 12:00:00 AM EST [facility] ([facility]) I10 [id number] Hypertension Problem 09/01/2020 12:00:00 AM EST eCW1 ([facility]) C50.911 [id number] Malignant neoplasm of unspecifie d site of right female breast Problem 08/26/2020 12:00:00 AM EST eCW1 (Formerly [facility]) C50.912 [id number] Malignant neoplasm of unspecifie d site of left female breast Problem 08/26/2020 12:00:00 AM EST eCW1 ([facility]) C50.912 [id number] Infiltrating ductal carcinoma of left jonh ast Problem 06/14/2020 12:00:00 AM EST eCW1 ([facility]) Z90.5 [id number] Hx of partial nephrectomy Problem 01/13/2020 12:00:00 AM EDT eCW1 ([facility]) D05.11 [id number] Ductal carcinoma in situ (DCIS) of right breast Problem 01/13/2020 12:00:00 AM EDT eCW1 ([facility]) E11.9 [id number] Type 2 diabetes domenic itus without complication, without long-term current use of insulin Problem 12/22/2019 12:00:00 AM EDT eCW1 ([facility]) C50.919 Malignant neoplasm of unspecified site o f unspecified female breast Malignant neoplasm of unspecified site of unspecified female breast Diagnosis 03/26/2020 02:14:00 PM [facility] Surgeries/Procedures Procedure Description Date Indications Data Source(s) Myocardial Perfusion Imaging Tomographic (Spect) Multiple St udies 09/04/2020 12:00:00 AM EST [facility] ([facility]) Cardiovascular Stress Test W/Interpretation & Report 09/04/2020 12:00:00 AM EST [facility] ([facility]) Echocardiography, Tranthoracic Complete Image Documentation 09/04/2020 12:00:00 AM EST [facility] ([facility]) Echocardiography, Tranthoracic Complete Image Documentation 09/04/2020 12:00:00 AM EST [facility] ([facility]) Computerized axial tomography of thorax with contrast (proce dure) 08/25/2020 02:03:00 PM [facility] Plain chest X-ray (procedure) 08/22/2020 11:38:[address] [facility] US RETROPERITONEAL REAL TIME W/IMAGE LIMITED 0 12:00:00 AM EDT [facility] ([facility]) US RETROPERITONEAL REAL TIME W/IMAGE LIMITED 0 12:00:00 AM EDT [facility] ([facility]) Ultrasonography of breast (procedure) 11/27/2019 09:28 :00 AM [facility] Ultrasonography of breast (procedure) 11/27/2019 09:28 :00 AM [facility] Ultrasonography of breast (procedure) 11/27/2019 09:28 :00 AM [facility] Ultrasonography of breast (procedure) 11/27/2019 09:28 :00 AM [facility] Ultrasonography of breast (procedure) 11/27/2019 09:28 :00 AM [facility] Unilateral radiographic imaging of breast (situation) 11/27/2019 08:51:00 AM [facility] Unilateral radiographic imaging of breast (situation) 11/27/2019 08:51:00 AM [facility] Unilateral radiographic imaging of breast (situation) 11/27/2019 08:51:00 AM [facility] Unilateral radiographic imaging of breast (situation) 11/27/2019 08:51:00 AM [facility] Unilateral radiographic imaging of breast (situation) 11/27/2019 08:51:00 AM [facility] Screening mammography (procedure) 11/21/2019 10:08:00 AM [facility] Screening mammography (procedure) 11/21/2019 10:08:00 AM [facility] Screening mammography (procedure) 11/21/2019 10:08:00 AM [facility] Screening mammography (procedure) 11/21/2019 10:08:00 AM [facility] Screening mammography (procedure) 11/21/2019 10:08:00 AM [facility] Results ID Date Data Source [id number] 09/10/2020 02:08:00 PM [facility] Patient Name: EWELINA GARNETT : 1960 Sex: F Pt Unit #: [id number] Location:[facility] Provider: Visit Date/Time: 09/10/20 Primary Insurance: PRIVATE INSURANCE FREE Secondary Insurance: Self Pay Intake Vital Signs 09/10/20 14:10 Current Height 5 ft Current Weight 204 lb Weight Measurement Method Standing Scale BMI 39.8 BP 134/62 Blood Pressure Location Lt brachial Position Sitting Respiration 12 Pulse 66 Pulse Strength Normal Pulse Source Pulse Oximeter Pulse Oximetry (%) 98 Oxygen Delivery Method room air Intake Visit Reasons: Hypertension Follow-up Nurse Note: HTN follow up - Surgery is scheduled for 09/12/2020. Has been doing well with new BP medication, No additional concerns Pbx Repairer Required: No Accompanied by: Self / Same as Patient Is patient in pain?: No Allergies diltiazem HCl [From Cardizem] Allergy (Unverified 09/29/18 09:18) Hives Medications - Last Reconciled 09/10/20 by Luly Galvez M.D. acetaminophen (Mapap Extra Strength) 1,000 mg PO Q4HPRN PRN clonidine HCl 0.3 mg PO TID 30 days hydralazine 25 mg PO TID lisinopril 20 mg PO BID 90 days metformin ER Take 1 tablet by mouth once daily metoprolol succinate ER Take 1 tablet by mouth once daily potassium chloride ER 20 mEq PO DAILY 90 days pravastatin 40 mg PO QDAY 90 days triamterene-hydrochlorothiazid 37.5-25 mg 1 tab PO DAILY 90 days Is last menstrual period known: No Post menopausal: Yes Patient : No Fall Risk History of falls: No Ambulatory Aid:: None Gait/Transferring:: Normal Medications:: No High Risk Medications PHQ-2/9 Over the last 2 weeks, how often have you been bothered by any of the following problems? 1. Little interest or pleasure in doing things: not at all 2. Feeling down, depressed, or hopeless: not at all Total score: 0 HIV Testing Offer - ages 13-64 HIV testing Offer: Yes Requirement for HIV testing offer been met?: Declines today. Pretest education received and acknowledged Hep C Testing Offered: Yes SBIRT Annual Questionnaire Are you currently in recovery for alcohol or substance use?: No How many times in the past year have you had 4 or more drinks in a day?: None How many times in the past year have you used a recreational drug or used a prescription medication for nonmedical reasons?: None Do you need a note to return Do you need a note to return to daycare/school/sports/work: No Coronavirus Screening Screening Are you currently positive or on isolation for COVID ?: No Do you have any NEW signs of one or more of the following?: no symptoms Do you have NEW signs of at least two of the following?: no symptoms PFSH Medical History Breast cancer Degenerative tear of left medial meniscus Epistaxis History of kidney cancer Hyperlipidemia Hypertension Surgical History section ( 2000) History of - surgery History of colonoscopy History of hysterectomy ( 2002) Status post oophorectomy ( 2013) Status post tonsillectomy ( 1964) Family History Mother Diabetes Father No problems noted. Social History Does the Patient have a Healthcare Proxy: No Does Patient have a DNR?: No Does Patient have a Living Will?: No Does the Patient have a MOLST?: No Advance Directives on File or in chart?: No Hx Recent Travel (where): No Smoking Status: Never smoker HPI Hypertension Followup (Card) * Onset: <3 months Current neurological symptoms: Denies diplopia, headache(s), numbness, loss of vision, weakness or other Orthostatic: No Current cardiovascular symptom: denies chest pain, dyspnea, dyspnea on exertion, palpitations, fatigue, dizziness or other Current endocrine symptoms: denies amenorrhea, diaphoretic episodes, myalgias, constipation, cold intolerance, weight gain, skin change or other Current renal disease symptoms: denies fatigue, nausea, vomiting, weight loss, edema, hematuria, foamy urine, change in urine output or other Most Recent Cardiac Tests: Chest X-Ray 08/22/20 Monitoring BP monitoring: home monitoring and health professional BP comorbidities: less than 130/80 BP control: satisfactory BP target: less than 130/80 Diet type: low sodium Medication compliance: good Pre-Operative H P Covid Screening Pre-Op Covid testing ordered?: Yes Exercise tolerance Can climb one flight of stairs (12-13 steps) in less than 30 seconds without stopping and without symptoms: Yes Risk factors Active cardiac conditions: none Workup: stress testing indicated (completed stress test and echo) Pertinent Past History Medical History: Hypertension Previous surgical complications: No Previous anesthesia intolerance: No Steroid use in last 6 months: No Allergies to meds or foods: Yes Pertinent Family History Family hx adverse reaction to anesthesia: No Family history coagulopathy: No Menstrual History Menopausal?: Yes Surgical Risk Surgical risk for this patient: Low Review of Systems Const Denies fatigue, Denies headache(s), Denies weakness, Denies weight gain and Denies weight loss Eyes Denies diplopia and Denies loss of vision ENT Denies dizziness and Denies headache(s) Card Denies chest pain, Denies edema, Denies palpitations, Denies dyspnea and Denies dyspnea on exertion Resp Denies dyspnea, Denies dyspnea on exertion and Denies wheezing GI Denies constipation, Denies nausea and Denies vomiting Genitourinary: Denies amenorrhea or hematuria Musc Denies myalgias and Denies numbness Skin/Breast Denies breast pain, Denies lesions and Denies rash Neuro Denies dizziness, Denies headache(s), Denies loss of vision, Denies numbness and Denies weakness Psych Denies abnormal sleep pattern, Reports anxiety (worried about surgery), Denies depression and Deniesirritability Endo Denies cold intolerance, Denies fatigue and Denies palpitations Isrrael/Lymph Denies easy bleeding, Denies easy bruising and Denies lymphadenopathy Aller/Immun Denies wheezing Exam Const General: cooperative, healthy appearing and no acute distress Nutritional Appearance: well nourished [facility] Head: normal to inspection, normocephalic and atraumatic Ears: TM's normal bilaterally and EAC's normal General nose exam: external nose normal; no nasal discharge noted Mouth: oral mucosae normal Throat: posterior oropharynx normal and no postnasal drainage Eyes General: appearance normal, both eyes and all related structures Conjunctivae: c onjunctivae normal Sclera: sclerae normal Neck Neck: normal visual inspection and full ROM Thyroid: thyroid normal Lymphatic: no lymphadenopathy noted Chest Chest: normal inspection of the chest Resp Effort Inspection: normal respiratory effort Auscultation: no rales, no rhonchi and no wheezes Cardio Rate: regular rate Rhythm: regular rhythm Heart Sounds: no murmurs GI Inspection: Yes normal to inspection Palpation: soft, no masses and nontender Auscultation: normal bowel sounds Musc Cervical Spine: cervical ROM normal Thoracic/Lumbar Spine: thoracic and lumbar spine normal to inspection Neuro General: patient alert and patient awake Cranial Nerves: hearing normal Cognition: normal cognition Motor: muscle tone normal throughout Sensory Exam: no sensory deficits noted Extrem General: no clubbing, cyanosis or edema Psych Appearance: grossly normal Speech and Movement: speech and movement normal Mood: anxious mood Affect: normal affect Attitude: cooperative Tho ught Process: normal Thought Content: normal Assessment Plan Assessment Plan (1) Hypertension: Status: Acute Code(s): I10 - Essential (primary) hypertension SNOMED Code(s): 31782025 Category: Medical Qualifiers: Hypertension type: essential hypertension Qualified Code(s): I10 - Essential (primary) hypertension (2) Pre-Operative Examination: Code(s): Z01.818 - Encounter for other preprocedural examination (3) Adenocarcinoma of breast: Code(s): C50.919 - Malignant neoplasm of unspecified site of unspecified female breast Qualifiers: Laterality: right Qualified Code(s): C50.911 - Malignant neoplasm of unspecified site of right female breast Additional Comments Additional Comments: BP has been very good, reviewed cardiology, echo and stress test normal, medications reviewed, take up to day of surgery, , cleared for surgery Orders Other Medications: Changed: From: potassium chloride ER 20 mEq PO DAILY 90 days 90 tabs 3RF To: potassium chloride ER 20 mEq PO BID 90 days 180 tabs 3RF Follow Up: 1 Month Coding Level of Care Code 41838 Est Pt Extended Comp Exam Detailed Diagnoses Hypertension I10 Hypertension type: essential hypertension Pre-Operative Examination Z01.818 Adenocarcinoma of breast C50.911 Laterality: right <Electronically signed by Luly Galvez MD> 09/10/20 1434 Name Value Range Interpretation Code Description Data Clare rce(s) Supporting Document(s) ID Date Data Source [id number] 09/07/2020 11:00:00 AM EST [facility] Name Value Range Interpretation Code Description Data Clare rce(s) Supporting Document(s) SARS coronavirus 2 RNA Not Detected [facility] [place] This lab was ordered by [facility] and reported by [facility]. ID Date Data Source [id number] 09/04/2020 10:42:00 AM EST [facility]) Name Value Range Interpretation Code Description Data Clare rce(s) Supporting Document(s) Nuclear Lexiscan/Myoview Laboratory test result [facility]) ID Date Data Source [id number] 09/04/2020 09:12:00 AM EST [facility]) Name Value Range Interpretation Code Description Data Clare rce(s) Supporting Document(s) Echocardiogram Laboratory test result [facility] ([facility]) ID Date Data Source [id number] 09/03/2020 12:58:00 PM [facility] Patient Name: EWELINA GARNETT : 1960 Sex: F Pt Unit #: [id number] Location:[facility] Provider: Visit Date/Time: 09/03/20 Primary Insurance: PRIVATE INSURANCE FREE Secondary Insurance: Self Pay Intake Vital Signs 09/03/20 13:05 Current Height 5 ft Current Weight 204 lb Weight Measurement Method Standing Scale BMI 39.8 BP 144/80 Blood Pressure Location Lt brachial Position Sitting Respiration 12 Pulse 68 Pulse Strength Normal Pulse Source Pulse Oximeter Pulse Oximetry (%) 100 Oxygen Delivery Method room air Intake Visit Reasons: Hypertension Follow-up Nurse Note: Hypertension follow up - States he was started on a new Medication from the CardiologistHydralazine 25mg TID - BP prior to apt is 127/84 - Had a Telemed visit with Cardio has to to have echo and another test done tomorrow in [place], Surgery is scheduled for 09-12-2020 Pbx Repairer Required: No Accompanied by: Self / Same as Patient Is patient in pain?: No Allergies diltiazem HCl [From Cardizem] Allergy (Unverified 09/29/18 09:18) Hives Medications - Last Reconciled 09/03/20 by Luly Galvez M.D. acetaminophen (Mapap Extra Strength) 1,000 mg PO Q4HPRN PRN clonidine HCl 0.3 mg PO TID 30 days hydralazine 25 mg PO TID lisinopril 20 mg PO BID 90 days metformin ER Take 1 tablet by mouth once daily metoprolol succinate ER 100 mg PO QDAY 90 days potassium chloride ER 20 mEq PO DAILY 90 days pravastatin 40 mg PO QDAY 90 days triamterene-hydrochlorothiazid 37.5-25 mg 1 tab PO DAILY 90 days Is last menstrual period known: No Post menopausal: Yes Patient : No Vision Wearing glasses?: Yes Fall Risk History of falls: No Ambulatory Aid:: None Gait/Transferring:: Normal Medications:: No High Risk Medications PHQ-2/9 Over the last 2 weeks, how often have you been bothered by any of the following problems? 1. Little interest or pleasure in doing things: not at all 2. Feeling down, depressed, or hopeless: not at all Total score: 0 HIV Testing Offer - ages 13-64 HIV testing Offer: Yes Requirement for HIV testing offer been met?: Patient reports past refusal Hep C Testing Offered: Yes Hep C Requirement met: Patient reports past refusal SBIRT Annual Questionnaire Are you currently in recovery for alcohol or substance use?: No How many times in the past year have you had 4 or more drinks in a day?: None How many times in the past year have you used a recreational drug or used a prescription medication for nonmedical reasons?: None Do you need a note to return Do you need a note to return to daycare/school/sports/work: No Coronavirus Screening Screening Are you currently positive or on isolation for COVID ?: No Do you have any NEW signs of one or more of the following?: no symptoms Do you have NEW signs of at least two of the following?: no symptoms PFSH Medical History Breast cancer Degenerative tear of left medial meniscus Epistaxis History of kidney cancer Hyperlipidemia Hypertension Surgical History section ( 2000) History of - surgery History of colonoscopy History of hysterectomy ( 2002) Status post oophorectomy ( 2013) Status post tonsillectomy ( 1964) Family History Mother Diabetes Father No problems noted. Social History Does the Patient have a Healthcare Proxy: No Does Patient have a DNR?: No Does Patient have a Living Will?: No Does the Patient have a MOLST?: No Advance Directives on File or in chart?: No Hx Recent Travel (where): No Smoking Status: Never smoker HPI Hypertension Followup (Card) * Current neurological symptoms: Denies headache(s) Current cardiovascular symptom: reports dyspnea on exertion; denies chest pain, palpitations or fatigue Current renal disease symptoms: denies fatigue, nausea or vomiting Most Recent Cardiac Tests: Chest X-Ray 08/22/20 Review of Systems Const Denies chills, Denies fatigue, Denies fever(s), Denies headache(s) and Denies poor appetite ENT Denies headache(s) Card Denies chest pain, Denies lightheadedness, Denies palpitations, Reports dyspnea on exertion, Denies orthopnea and Denies paroxysmal nocturnal dyspnea Resp Denies cough, Reports dyspnea on exertion and Denies wheezing GI Denies nausea and Denies vomiting Neuro Denies headache(s) Endo Denies fatigue and Denies palpitations Aller/Immun Denies wheezing Exam Const General: cooperative and no acute distress Nutritional Appearance: average body habitus Orientation: alert, awake and oriented x3 Resp Effort Inspection: normal respiratory effort Auscultation: no rales and no rhonchi Cardio Rate: regular rate Rhythm: regular rhythm Psych Mood: anxious mood Assessment Plan Assessment Plan (1) Hypertension: Status: Acute Code(s): I10 - Essential (primary) hypertension SNOMED Code(s): 84687266 Category: Medical Qualifiers: Hypertension type: essential hypertension Qualified Code(s): I10 - Essential (primary) hypertension Plan - Luly Galvez M.D.: reviewed cardiology evaluation, hydralazine started last night, no orthostatic changes, having echo and stress test tomorrow, see 1 week Coding Level of Care Code 54090 Est Pt Intermediate Comp Exam Problem Focused Diagnoses Hypertension I10 Hypertension type: essential hypertension <Electronically signed by Luly Galvez MD> 09/03/20 1325 Name Value Range Interpretation Code Description Data Clare rce(s) Supporting Document(s) ID Date Data Source [id number] 08/27/2020 02:30:00 PM [facility] Patient Name: EWELINA GARNETT : 1960 Sex: F Pt Unit #: [id number] Location:[facility] Provider: Visit Date/Time: 08/27/20 Primary Insurance: PRIVATE INSURANCE FREE Secondary Insurance: Self Pay Intake Vital Signs 08/27/20 14:31 Current Height 5 ft Current Weight 204 lb Weight Measurement Method Standing Scale BMI 39.8 BP 140/84 Blood Pressure Location Rt brachial Position Sitting Respiration 14 Pulse 72 Pulse Strength Normal Pulse Source Pulse Oximeter Pulse Oximetry (%) 97 Oxygen Delivery Method room air Intake Visit Reasons: Hypertension Nurse Note: BP evaluation, went for Mastectomy yesterday, pt states she was very nervous, had Dry heaves the whole way to to [place], BP there was 200/110, Surgery was cancelled, but pt was instructed not to take her lisionpril the morning of her surgery, took metoprolol and clonidine, this morning her BP was 165/108 before Medication and then 112/75 30 mins after taking medication. Today it is 164/94 in office 140/84 after resting Pbx Repairer Required: No Allergies diltiazem HCl [From Cardizem] Allergy (Unverified 09/29/18 09:18) Hives Medications - Last Reconciled 08/27/20 by Luly Galvez M.D. acetaminophen (Mapap Extra Strength) 1,000 mg PO Q4HPRN PRN clonidine HCl 0.3 mg PO TID 30 days lisinopril 20 mg PO BID 90 days metformin ER Take 1 tablet by mouth once daily metoprolol succinate ER 100 mg PO QDAY 90 days potassium chloride ER 20 mEq PO DAILY 90 days pravastatin 40 mg PO QDAY 90 days triamterene-hydrochlorothiazid 37.5-25 mg 1 tab PO DAILY 90 days Vision Wearing glasses?: Yes Fall Risk History of falls: No Ambulatory Aid:: None Gait/Transferring:: Normal Medications:: No High Risk Medications PHQ-2/9 Over the last 2 weeks, how often have you been bothered by any of the following problems? 1. Little interest or pleasure in doing things: not at all 2. Feeling down, depressed, or hopeless: not at all Total score: 0 HIV Testing Offer - ages 13-64 HIV testing Offer: Yes Requirement for HIV testing offer been met?: Declines today. Pretest education received and acknowledged Hep C Testing Offered: Yes Hep C Requirement met: Refuses today SBIRT Annual Questionnaire Are you currently in recovery for alcohol or substance use?: No How many times in the past year have you had 4 or more drinks in a day?: None How many times in the past year have you used a recreational drug or used a prescription medication for nonmedical reasons?: None Do you need a note to return Do you need a note to return to daycare/school/sports/work: No Coronavirus Screening Screening Are you currently positive or on isolation for COVID ?: No Do you have any NEW signs of one or more of the following?: no symptoms Do you have NEW signs of at least two of the following?: no symptoms PFSH Medical History Breast cancer Degenerative tear of left medial meniscus Epistaxis History of kidney cancer Hyperlipidemia Hypertension Surgical History section ( 2000) History of - surgery History of colonoscopy History of hysterectomy ( 2002) Status post oophorectomy ( 2013) Status post tonsillectomy ( 1964) Family History Mother Diabetes Father No problems noted. Social History Does the Patient have a Healthcare Proxy: No Does Patient have a DNR?: No Does Patient have a Living Will?: No Does the Patient have a MOLST?: No Advance Directives on File or in chart?: No Hx Recent Travel (where): No Smoking Status: Never smoker HPI Hypertension (Cardio) Type of visit: follow-up Onset: <3 months Current neurological symptoms: Denies diplopia, headache(s), numbness, loss of vision, weakness or other Orthostatic: No Current cardiovascular symptom: denies chest pain, dyspnea, dyspnea on exertion, palpitations, fatigue, dizziness or other Current endocrine symptoms: denies amenorrhea, diaphoretic episodes, myalgias, constipation, cold intolerance, weight gain, skin change or other Current renal disease symptoms: denies fatigue, nausea, vomiting, weight loss, edema, hematuria, foamy urine, change in urine output or other Most Recent Cardiac Tests: Chest X-Ray 08/22/20 Review of Systems Const Denies fatigue, Denies headache(s), Denies weakness, Denies weight gain and Denies weight loss Eyes Denies diplopia and Denies loss of vision ENT Denies dizziness and Denies headache(s) Card Denies chest pain, Denies edema, Denies palpitations, Denies dyspnea and Denies dyspnea on exertion Resp Denies dyspnea and Denies dyspnea on exertion GI Denies constipation, Denies nausea and Denies vomiting Genitourinary: Denies amenorrhea or hematuria Musc Denies myalgias and Denies numbness Neuro Denies dizziness, Denies headache(s), Denies loss of vision, Denies numbness and Denies weakness Psych Reports anxiety Endo Denies cold intolerance, Denies fatigue and Denies palpitations Exam Const General: cooperative and no acute distress Nutritional Appearance: average body habitus Orientation: alert, awake and oriented x3 Neck Neck mass: No Thyroid: thyroid normal Lymphatic: no lymphadenopathy noted Resp Effort Inspection: normal respiratory effort Auscultation: no rales and no rhonchi Cardio Rate: regular rate Rhythm: regular rhythm Psych Speech and Movement: speech and movement normal Mood: anxious mood Affect: normal affect Attitude: cooperative Thought Process: normal Assessment Plan Assessment Plan (1) Hypertension: Status: Acute Code(s): I10 - Essential (primary) hypertension SNOMED Code(s): 72313972 Category: Medical Qualifiers: Hypertension type: essential hypertension Qualified Code(s): I10 - Essential (primary) hypertension Plan - Luly Galvez M.D.: much stress related to surgery then dry heaves on way to hospital, discussed need for BP meds , possibly anxiety med night before, but discussed cardiology referral for further suggestions, also discussed CT chest and pulmonary nodules, has had breast and renal cancers, report sent to breast surgeon but pulmonary referral also done, see 2 weeks Orders: Referrals: Cardiology Referral (2) Lung nodule: Code(s): R91.1 - Solitary pulmonary nodule Orders: Referrals: Pulmonary Referral Orders Follow Up: 2 Weeks Coding Level of Care Code 25186 Est Pt Intermediate Comp Exam Expanded Problem Focused Diagnoses Hypertension I10 Hypertension type: essential hypertension Lung nodule R91.1 <Electronically signed by Luly Galvez MD> 08/27/20 1511 Name Value Range Interpretation Code Description Data Clare rce(s) Supporting Document(s) ID Date Data Source [id number] 08/25/2020 04:19:00 PM EST [facility] [address] [place] [address] [phone] NAME SEX PT STATUS ACCOUNT NUMBER EWELINA GARNETT REG REF [id number] ORDERING PHYSICIAN LOCATION MEDICAL RECORD NO. Luly Galvez MD CT [id number] ATTENDING PHYSICIAN DATE OF DATE OF EXAM/TIME Luly Galvez MD 1960 08/25/201402 TYPE / EXAM CT Thorax with contrast REASON FOR EXAM spot on CXR COMPARISON: None TECHNIQUE: Contrast Enhanced Multidetector-Row Chest Computed Tomography images were acquired. FINDINGS: A right-sided Port-A-Cath is seen. Pulmonary Parenchyma and Airways: Multiple small pulmonary nodules are seen on the right. One in the right middle lobe (3:47) measures 3.6 mm. And another one in the right middle lobe (3:54) measures 2.9 mm. In largest one seen in the right costophrenic sulcus measures 16.8 mm (3:63). Lung parenchyma is otherwise unremarkable. There is no focal pulmonary consolidation or interstitial process.010 Pleural Space: No pleural effusion is present. However, pleural thickening is seen posteriorly on both sides. Heart and Pericardium: Cardiomegaly with left ventricular predominance is seen.. No pericardial fluid or thickening is present. Mediastinum and Alis: No mediastinal mass is present. No enlarged lymph nodes are present. Thoracic Vessels: No vascular abnormality is present. Osseous Structures and Chest Wall: No pathologic osseous or soft- tissue process is present. Upper Abdomen: No pathologic process is present in the imaged portion of the upper abdomen. Additional findings: None. IMPRESSION: 1. Right-sided pulmonary nodules, as described. A few sub-5 mm, but an approximately 1.7 cm nodule in the right costophrenic sulcus. 2. No focal pulmonary consolidation or pleural effusion. 3. Cardiomegaly. Fleischner Criteria A. Solid Nodules Nodule Type <6mm 6-8mm >8mm Single Low Risk No routine follow-up CT at 6-[address], [address] at 18-[address] at3 months, PET/CT, or tissue sampling High Risk Optional CT at [address] at 6-12 months, then consider CT at 18-24 months ConsiderCT at 3 months, PET/CT, or tissue sampling Multiple Low Risk No routine follow-up CT at 3-6 months, then [address] at 18-[address] at 3-6 months, then consider CT at 18-24 months High Risk Optional CT at [address] at 3-6 months, then consider CT at 18-[address] at 3-[address], then [address] CT at 18-24 months B. Subsolid Nodules Single <6mm 6mm or greater Ground Glass No routine follow-up CT at 6-12 months to confirm persistence, then CT every 2 yearsuntil 5 years. Part Solid No routine follow-up CT at 3-6 months to confirm persistence. If unchanged and solid component remains <6mm, annual CT should be performed for [address] at 3-6 months, if stable, consider CT at [address] at 3-6 months. Subsequent management based on the most suspicious nodule(s). Dose reduction was performed utilizing CARE dose with automated adjustment of the kV and MAS according to patient size, iterative reconstruction, automated exposure control, as well as adaptivedose shielding. Reported By Judah Rodriguez MD on 08/25/20 1619 Signed By Judah Rodriguez MD on 08/25/20 1634 Date Time CC: Judah Rodriguez MD; Luly Galvez MD Techn: MORSA Trans Dt/Tm: Trans by: DT Prt Dt/Tm: : Total DLP = 210.00 mGy-cm : Total Radiation Dose = 2.7300 mSv Lifetime Dose: 2.7300 mSv Name Value Range Interpretation Code Description Data Clare rce(s) Supporting Document(s) ID Date Data Source [id number] 08/22/2020 03:00:00 PM EST [facility] ([facility]) Name Value Range Interpretation Code Description Data Clare rce(s) Supporting Document(s) .Scanned Labs Laboratory test result [facility] ([facility]) ID Date Data Source [id number] 08/22/2020 02:08:00 PM [facility] [address] [place] [address] [phone] NAME SEX PT STATUS ACCOUNT NUMBER EWELINA GARNETT REG REF [id number] ORDERING PHYSICIAN LOCATION MEDICAL RECORD NO. Luly Galvez MD [facility] [id number] ATTENDING PHYSICIAN DATE OF DATE OF EXAM/TIME Luly Galvez MD 1960 08/22/201137 TYPE / EXAM Xray Chest 2 view [...] Magnolia Davila MD; Luly Galvez MD Techn: CARR Trans Dt/Tm: Trans by: DT Prt Dt/Tm: 0205- 0017: Total DLP = 0.00 mGy-cm Fluoroscopy Time (in secs): Name Value Range Interpretation Code Description Data Clare rce(s) Supporting Document(s) ID Date Data Source [id number] 08/22/2020 11:39:00 AM [facility] Name Value Range Interpretation Code Description Data Clare rce(s) Supporting Document(s) Leukocytes [#/volume] in Blood by Automated count 9.0 10*3/uL 4.45-10 .71 N [facility] Erythrocytes [#/volume] in Blood by Automated count 4.22 10*6/uL 4.20 -5.40 N [facility] Hemoglobin [Moles/volume] in Blood 12.6 g/dL 10.7-15.4 N [facility] Hematocrit [Volume Fraction] of Blood by Automated count 40.2 % 3 7-47 N [facility] Erythrocyte mean corpuscular volume [Ent itic volume] in Cord blood by Automated count 95.3 fL 80-96 N [facility] Erythrocyte mean corpuscular hemoglobin [Entitic mass] by Automated count 29.9 pg 27-31 N [facility] Erythrocyte mean corpuscular hemoglobin concentration [Mass/volume] in Cord blood 31.3 g/dL 33-37 Below low normal [facility] Erythrocyte distribution width [Entitic volume] by Automated cou nt 17 % 11-15 Above high normal [facility] Platelets [#/volume] in Blood by Automated count 296 10*3/uL 130-472 N [facility] Platelet mean volume [Entitic volume] in Blood 9.9 fL 9.1-13.1 N [facility] Neutrophils/100 leukocytes in Blood by Automated count 64.8 % 41- 77 N [facility] Neutrophils [#/volume] in Blood by Automated count 5.8 U 1.7-7.6 N [facility] Lymphocytes/100 leukocytes in Blood by Automated count 21.6 % 14- 46 N [facility] Lymphocytes [#/volume] in Blood by Automated count 1.9 U 0.6-4.6 N [facility] Monocytes/100 leukocytes in Blood by Automated count 6.8 % 4-12 N [facility] Monocytes [#/volume] in Blood by Automated count 0.6 U 0.2-1.2 N [facility] Eosinophils/100 leukocytes in Blood by Automated count 5.2 % 0-7 N [facility] Eosinophils [#/volume] in Blood by Automated count 0.5 U 0.0-0.5 N [facility] [facility] Basophils/100 leukocytes in Blood by Automated count 1.0 % 0.4-1 .3 N [facility] Basophils [#/volume] in Blood by Automated count 0.1 U 0.0-0.2 N [facility] NUCLEATED RED BLOOD CELL 0 % [facility] NUCLEATED RED BLOOD CELL# 0 U [facility] Immature granulocytes [Presence] in Blood by Automated count 0-2 N [facility] Immature granulocytes [#/volume] in Blood by Automated count 0.1 U 0-0.1 N [facility] Manual Differential panel - Blood NO [facility] ID Date Data Source [id number] 08/22/2020 12:02:00 PM [facility] Name Value Range Interpretation Code Description Data Clare rce(s) Supporting Document(s) Hemoglobin A1c [Mass/volume] in Blood 6.6 % 3.8-5.6 Above hig h normal [facility] The following ranges may be u sed for interpretation of results: HGBA1C degree of glucose control: Greater than 8%: Action Suggested * Less than 7%: Goal of Diabetic Therapy Less than 5.6%: NormalFactors such as duration of diabetes, adherence to therapyand the age of the patient should also be considered inassessing the degree of blood glucose control.* High risk of developing bed bug exterminator complications such asretinopathy, nephropathy, neuropathy, cardiopathy, etc. Some danger of hypoglycemic reaction in Type I diabetics.Some glucose intolerant individuals and "Sub Clinical"diabetics may demonstrate HGBA1C levels in this area. Glucose mean value [Moles/volume] in Blood Estimated f rom glycated hemoglobin 143 mg/dL [facility] An A1C of 7% - the goal of diabetic ther apy - is equivalentto an EAG of 154 mg/dl. ID Date Data Source [id number] 08/22/2020 12:09:00 PM [facility] Name Value Range Interpretation Code Description Data Clare rce(s) Supporting Document(s) Urea nitrogen [Mass/volume] in Serum or Plasma 15 mg/dL 9-23 N [facility] Sodium [Moles/volume] in Serum or Plasma 143 mmol/L 132-146 N [facility] Potassium [Moles/volume] in Serum or Plasma 3.4 mmol/L 3.5-5.5 Below low normal [facility] Chloride [Moles/volume] in Serum or Plasma 108 mmol/L 99-109 N [facility] Carbon dioxide, total [Moles/volume] in Serum or Plasma 30 mmol/L 20 -31 N [facility] Anion gap in Serum or Plasma 8 mmol/L 8-16 N [facility] Glucose [Mass/volume] in Serum or Plasma 135 mg/dL 74-106 Above high normal [facility] Creatinine 1.1 mg/dL 0.5-1.1 [facility] Glomerular filtration rate/1.73 sq M.pre dicted [Volume Rate/Area] in Serum or Plasma 51 ml/min ABOVE 60 [facility] Alanine aminotransferase [Enzymatic acti vity/volume] in Serum or Plasma by With P-5'-P 34 U/L 10-49 N [facility] Aspartate aminotransferase [Enzymatic ac tivity/volume] in Serum or Plasma by With P-5'-P 15 U/L 0-33 N [facility] pital Alkaline phosphatase [Enzymatic activity/volume] in Serum or Plasma 69 U/L 45-129 N [facility] Calcium [Mass/volume] in Serum or Plasma 9.5 mg/dL 8.5-10.1 [facility] Bilirubin.total [Mass/volume] in Serum or Plasma 0.5 mg/dL 0.3-1.2 [facility] Albumin [Mass/volume] in Serum or Plasma by Bromocresol purple (BCP) dye binding method 3.4 g/dL 3.2-4.8 [facility] Protein [Mass/volume] in Serum or Plasma 6.2 g/dL 5.7-8.2 [facility] ID Date Data Source [id number] 08/22/2020 12:09:00 PM [facility] Name Value Range Interpretation Code Description Data Clare rce(s) Supporting Document(s) Triglycerides 265 mg/dL 0-150 Above high normal [facility] Cholesterol 192 mg/dL 120-200 [facility] HDL Cholesterol 36 mg/dL [facility] HDL Less than 40 mg/dL: Major risk for CHDHDL Greater than 59 mg/dL: Low risk for CHD LDL Cholesterol, Calc 103 mg/dL 0-100 Above high normal [facility] ID Date Data Source [id number] 08/22/2020 10:39:00 AM [facility] Patient Name: EWELINA GARNETT Demetri : 1960 Sex: F Pt Unit #: [id number] Location:[facility] Provider: Visit Date/Time: 08/22/20 Primary Insurance: PRIVATE INSURANCE FREE Secondary Insurance: Self Pay Intake Vital Signs 08/22/20 10:43 Current Height 5 ft Current Weight 204 lb Weight Measurement Method Standing Scale BMI 39.8 BP 134/78 Blood Pressure Location Lt brachial Position Sitting Respiration 14 Pulse 68 Pulse Strength Normal Pulse Source Pulse Oximeter Temp 97.5 F L Temp Source Tympanic Pulse Oximetry (%) 98 Oxygen Delivery Method room air Intake Visit Reasons: Hyperlipidemia, Hypertension, Diabetes, Pre-operative H P Nurse Note: Pre-OP for Dx: C50.919 Mastectomy on 08.26.20- Needs to have EKG, chest Xray and Lab work -States she is feeling well, No problems or concerns today - HTN, Diabetes and Cholesterol follow up as well - Which she states she is doing well Pbx Repairer Required: No Accompanied by: Self / Same as Patient Is patient in pain?: No Allergies diltiazem HCl [From Cardize] Allergy (Unverified 09/29/18 09:18) Hives Medications - Last Reconciled 08/22/20 by Luly Galvez M.D. acetaminophen (Mapap Extra Strength) 1,000 mg PO Q4HPRN PRN clonidine HCl 0.3 mg PO TID 30 days lisinopril 20 mg PO BID 90 days metformin ER Take 1 tablet by mouth once daily metoprolol succinate ER 100 mg PO QDAY 90 days potassium chloride ER 20 mEq PO DAILY 90 days pravastatin 40 mg PO QDAY 90 days triamterene-hydrochlorothiazid 37.5-25 mg 1 tab PO DAILY 90 days Is last menstrual period known: No Post menopausal: Yes Patient : No Vision Wearing glasses?: No PHQ-2/9 Over the last 2 weeks, how often have you been bothered by any of the following problems? 1. Little int erest or pleasure in doing things: not at all 2. Feeling down, depressed, or hopeless: not at all Total score: 0 HIV Testing Offer - ages 13-64 HIV testing Offer: Yes Requirement for HIV testing offer been met?: Declines today. Pretest education received and acknowledged Hep C Testing Offered: Yes Hep C Requirement met: Refuses today SBIRT Annual Questionnaire Are you currently in recovery for alcohol or substance use?: No How many times in the past year have you had 4 or more drinks in a day?: None How many times in the past year have you used a recreational drug or used a prescription medication for nonmedical reasons?: None Do you need a note to return Do you need a note to return to daycare/school/sports/work: No Coronavirus Screening Screening Are you currently positive or on isolation for COVID ?: No Do you have any NEW signs of one or more of the following?: no symptoms Do you have NEW signs of at least two of the following?: no symptoms PFSH Medical History Breast cancer History of kidney cancer Hyperlipidemia Hypertension Surgical History section ( 2000) History of - surgery History of colonoscopy History of hysterectomy ( 2002) Status post oophorectomy ( 2013) Status post tonsillectomy ( 1964) Family History Mother Diabetes Father No problems noted. Social History Does the Patient have a Healthcare Proxy: No Does Patient have a DNR?: No Does Patient have a Living Will?: No Does the Patient have a MOLST?: No Advance Directives on File or in chart?: No Hx Recent Travel (where): No Smoking Status: Never smoker HPI Hypertension (Cardio) Current neurological symptoms: Denies diplopia, headache(s), numbness or weakness Current cardiovascular symptom: denies chest pain, dyspnea, palpitations, fatigue or dizziness Current endocrine symptoms: denies constipation or weight gain Current renal disease symptoms: denies fatigue, nausea, vomiting or weight loss Most Recent Cardiac Tests: Chest X-Ray 08/22/20 Pre-Operative H P Covid Screening Pre-Op Covid testing ordered?: Yes Exercise tolerance Can climb one flight of stairs (12-13 steps) in less than 30 seconds without stopping and without symptoms: Yes Risk factors Active cardiac conditions: none Pertinent Past History Medical History: Hypertension Previous surgical complications: No Previous anesthesia intolerance: No Steroid use in last 6 months: No Allergies to meds or foods: Yes Pertinent Family History Family hx adverse reaction to anesthesia: No Family history coagulopathy: No Menstrual History Menopausal?: Yes Surgical Risk Surgical risk for this patient: Low Review of Systems Const Denies chills, Denies fatigue, Denies fever(s), Denies headache(s), Denies night sweats, Denies poorappetite, Denies weakness, Denies weight gain and Denies weight loss Eyes Denies blurry vision, Denies diplopia and Denies eye discharge ENT Denies vertigo, Denies dizziness, Denies otalgia, Denies headache(s), Denies nasal congestion and Denies sore throat Card Denies chest pain, Denies palpitations and Denies dyspnea Resp Denies cough, Denies d yspnea and Denies wheezing GI Denies abdominal pain, Denies constipation, Denies diarrhea, Denies nausea and Denies vomiting Genitourinary: Denies abnormal vaginal bleeding or dysuria Musc Denies back pain, Denies arthralgias, Denies limited range of motion and Denies numbness Skin/Breast Denies breast pain, Denies lesions and Denies rash Neuro Denies vertigo, Denies dizziness, Denies headache(s), Denies numbness and Denies weakness Psych Denies abnormal sleep pattern, Denies anxiety, Denies depression and Denies irritability Endo Denies fatigue, Denies polydipsia, Denies polyuria and Denies palpitations Isrrael/Lymph Denies easy bleeding, Denies easy bruising and Denies lymphadenopathy Aller/Immun Denies wheezing Exam Const General: cooperative, healthy appearing and no acute distress Nutritional Appearance: well nourished [facility] Head: normal to inspection, normocephalic and atraumatic Ears: TM's normal bilaterally and EAC's normal General nose exam: external nose normal; no nasal discharge noted Mouth: oral mucosae normal Eyes General: appearance normal, both eyes and all related structures Conjunctivae: conjunctivae normal Sclera: sclerae normal Neck Neck: normal visual inspection and full ROM Thyroid: thyroid normal Carotids: normal carotid upstroke Lymphatic: no lymphadenopathy noted Chest Chest: normal inspection of the chest Resp Effort Inspection: normal respiratory effort Auscultation: no rales, no rhonchi and no wheezes Cardio Rate: regular rate Rhythm: regular rhythm Heart Sounds: no murmurs GI Inspection: Yes normal to inspection Palpation: soft, no masses and nontender Auscultation: normal bowel sounds Musc Cervical Spine: cervical ROM normal Thoracic/Lumbar Spine: thoracic and lumbar spine normal to inspection Neuro General: patient alert and patient awake Cranial Nerves: hearing normal Cognition: normal cognition Motor: muscle tone normal throughout Sensory Exam: no sensory deficits noted Extrem General: no clubbing, cyanosis or edema Psych Appearance: grossly normal Mental Status: mental status grossly normal Office Procedures EKG Office Procedure Performed by: Nenita Freed LPN EKG Results: Normal EKG read by: Luly Galvez MD Assessment Plan Assessment Plan (1) Pre-Operative Examination: Code(s): Z01.818 - Encounter for other preprocedural examination Plan - Luly Galvez M.D.: BP good, EKG normal, CXR and labs reviewed, labs good, CXR shows slight haziness with CT recommended, will try to schedule tuesday but should not hold up surgery, normal exam, cleared for surgery (2) Hypertension: Status: Acute Code(s): I10 - Essential (primary) hypertension SNOMED Code(s): 66874595 Category: Medical Qualifiers: Hypertension type: essential hypertension Qualified Code(s): I10 - Essential (primary) hypertension Orders: Orders: Xray Chest 2 view PA/LAT Today CBC W AUTO DIFF Today CMP Today LIPID PANEL Today HGBA1C + EAG Today (3) Diabetes mellitus: Code(s): E11.9 - Type 2 diabetes mellitus without complications Orders: Orders: CBC W AUTO DIFF Today CMP Today LIPID PANEL Today HGBA1C + EAG Today (4) Hyperlipidemia: SNOMED Code(s): 66185233 Category: Medical (5) Adenocarcinoma of breast: Code(s): C50.919 - Malignant neoplasm of unspecified site of unspecified female breast Coding Level of Care Code 10830 Est Pt Extended Comp Exam Detailed Diagnoses Pre- Operative Examination Z01.818 Hypertension I10 Hypertension type: essential hypertension Diabetes mellitus E11.9 Hyperlipidemia E78.5 Adenocarcinoma of breast C50.919 <Electronically signed by Luly Galvez MD> 08/22/20 1511 Name Value Range Interpretation Code Description Data Clare rce(s) Supporting Document(s) ID Date Data Source [id number] 08/21/2020 10:00:00 AM EST [facility] Name Value Range Interpretation Code Description Data Clare rce(s) Supporting Document(s) SARS coronavirus 2 RNA Not Detected [facility] This lab was ordered by [facility] and reported by [facility]. ID Date Data Source [id number] 05/23/2020 09:57:00 AM [facility] Patient Name: EWELINA GARNETT : 1960 Sex: F Pt Unit #: [id number] Location:[facility] Provider: Visit Date/Time: 05/23/20 Primary Insurance: [facility] Secondary Insurance: Self Pay Intake Vital Signs 05/23/20 09:57 Current Height 5 ft Current Weight 214 lb Weight Measurement Method Standing Scale BMI 41.8 BP 128/62 Blood Pressure Location Rt brachial Position Sitting Respiration 12 Pulse 78 Pulse Strength Normal Pulse Source Pulse Oximeter Pulse Oximetry (%) 98 Oxygen Delivery Method room air Intake Visit Reasons: Hypertension Follow-up Nurse Note: Hypertension follow up- States she is doing well- Has Chemo once a week for 12 weeks - No additional concerns today - has a rattle in her throat, but she is feeling fine Pbx Repairer Required: No Accompanied by: Self / Same as Patient Is patient in pain?: No Allergies diltiazem HCl [From Cardizem] Allergy (Unverified 09/29/18 09:18) Hives Medications acetaminophen (Mapap Extra Strength) 1,000 mg PO Q4HPRN PRN clonidine HCl 0.3 mg PO TID dexamethasone mg PO lisinopril 20 mg PO BID 90 days metformin ER 500 mg PO QDAY 30 days metoprolol succinate ER 100 mg PO QDAY 90 days ondansetron mg PO potassium chloride ER 20 mEq PO DAILY 90 days pravastatin 40 mg PO QDAY 90 days triamterene-hydrochlorothiazid 37.5-25 mg 1 tab PO DAILY 90 days Is last menstrual period known: No Post menopausal: Yes Patient : No Fall Risk History of falls: No Ambulatory Aid:: None Gait/Transferring:: Normal Medications:: No High Risk Medications PHQ- 2/9 Over the last 2 weeks, how often have you been bothered by any of the following problems? 1. Little interest or pleasure in doing things: not at all 2. Feeling down, depressed, or hopeless: not at all Total score: 0 HIV Testing Offer - ages 13-64 HIV testing Offer: Yes Requirement for HIV testing offer been met?: Declines today. Pretest education received and acknowledged Hep C Testing Offered: Yes Hep C Requirement met: Refuses today SBIRT Annual Questionnaire Are you currently in recovery for alcohol or substance use?: No How many times in the past year have you had 4 or more drinks in a day?: None How many times in the past year have you used a recreational drug or used a prescription medication for nonmedical reasons?: None Do you need a note to return Do you need a note to return to daycare/school/sports/work: No Coronavirus Screening Screening Have you traveled outside of [facility] or [facility] in the last 14 days.: No Has patient experienced coronavirus symptoms: No [facility] Medical History (Updated 05/23/20 @ 10:16 by Luly Galvez M.D.) Breast cancer History of kidney cancer Hyperlipidemia Hypertension Surgical History section ( 2000) History of - surgery History of colonoscopy History of hysterectomy ( 2002) Status post oophorectomy ( 2013) Status post tonsillectomy ( 1964) Family History Mother Diabetes Father No problems noted. Social History Does the Patient have a Healthcare Proxy: No Does Patient have a DNR?: No Does Patient have a Living Will?: No Does the Patient have a MOLST?: No Advance Directives on File or in chart?: No Hx Recent Travel (where): No Smoking Status: Never smoker HPI Hypertension Followup (Card) * Current neurological symptoms: Denies headache(s) Current cardiovascular symptom: denies chest pain, dyspnea, palpitations or fatigue Current renal disease symptoms: reports nausea (after chemo); denies fatigue Most Recent Cardiac Tests: No Data to Display Review of Systems Const Denies chills, Denies fatigue, Denies fever(s), Denies headache(s) and Denies poor appetite ENT Denies headache(s), Denies nasal congestion and Reports post nasal drip Card Denies chest pain, Denies palpitations, Denies dyspnea, Denies orthopnea and Denies paroxysmal nocturnal dyspnea Resp Reports cough (just starting), Denies dyspnea and Denies wheezing GI Reports nausea (after chemo) Genitourinary: Denies dysuria Neuro Denies headache(s) Psych Denies anxiety and Denies depression Endo Denies fatigue and Denies palpitations Aller/Immun Denies wheezing Ex am Const General: cooperative and no acute distress Nutritional Appearance: average body habitus HENMT Ears: TM's normal bilaterally General nose exam: no nasal discharge Throat: posterior oropharynx normal Neck Lymphatic: no lymphadenopathy noted Resp Effort Inspection: normal respiratory effort Auscultation: no rales, no rhonchi and no wheezes Cardio Rate: regular rate Rhythm: regular rhythm Extrem General: no clubbing, cyanosis or edema Assessment Plan Assessment Plan (1) Hypertension: Status: Acute Code(s): I10 - Essential (primary) hypertension SNOMED Code(s): 09174319 Category: Medical Qualifiers: Hypertension type: essential hypertension Qualified Code(s): I10 - Essential (primary) hypertension (2) Abnormal glucose: Code(s): R73.09 - Other abnormal glucose Plan - Luly Galvez M.D.: BP improved, labs reviewed from oncology, last BS 130, losing weight, small meals, see 3 months, shewill discuss flu shot with oncology Orders Instructions: DASH Eating Plan (GEN) Hypertension (GEN) Follow Up: 3 Months <Electronically signed by Luly Galvez MD> 05/23/20 1019 Name Value Range Interpretation Code Description Data Clare rce(s) Supporting Document(s) ID Date Data Source [id number] 03/31/2020 09:47:00 AM EDT [facility] Patient Name: EWELINA GARNETT OB: 1960 Sex: F Pt Unit #: [id number] Location:[facility] Provider: Visit Date/Time: 03/31/20 Primary Insurance: R/[facility] Secondary Insurance: Self Pay Intake Vital Signs 03/31/20 09:48 Current Height 5 ft Current Weight 227 lb Weight Measurement Method Stated by Patient BMI 44.3 BP 130/68 Blood Pressure Location Lt radial Position Sitting Respiration 12 Pulse 55 L Pulse Strength Normal Pulse Source Pulse Oximeter Pulse Oximetry (%) 98 Oxygen Delivery Method room air Intake Visit Reasons: Hypertension Follow-up Nurse Note: HTN follow up - Pt states she has been feeling great - BP has been 138/85, 133/82, 125/78, 153/96, 130/88 - Pbx Repairer Required: No Accompanied by: Self / Same as Patient Is patient in pain?: No Allergies diltiazem HCl [From Cardizem] Allergy (Unverified 09/29/18 09:18) Hives Medications acetaminophen (Mapap Extra Strength) 1,000 mg PO Q4HPRN PRN clonidine HCl 0.3 mg PO TID lisinopril 20 mg PO BID 90 days metformin ER 500 mg PO QDAY 30 days metoprolol succinate ER 100 mg PO QDAY 90 days potassium chloride ER 20 mEq PO DAILY 30 days pravastatin 40 mg PO QDAY 90 days triamter messi-hydrochlorothiazid 37.5-25 mg 1 tab PO DAILY 90 days Is last menstrual period known: No Post menopausal: Yes Patient : No Vision Wearing glasses?: Yes Fall Risk History of falls: No Ambulatory Aid:: None Gait/Transferring:: Normal Medications:: No High Risk Medications PHQ-2/9 Over the last 2 weeks, how often have you been bothered by any of the following problems? 1. Little interest or pleasure in doing things: not at all 2. Feeling down, depressed, or hopeless: not at all Total score: 0 HIV Testing Offer - ages 13-64 HIV testing Offer: Yes Requirement for HIV testing offer been met?: Declines today. Pretest education received and acknowledged Hep C Testing Offered: Yes Hep C Requirement met: Refuses today SBIRT Annual Questionnaire Are you currently in recovery for alcohol or substance use?: No How many times in the past year have you had 4 or more drinks in a day?: None How many times in the past year have you used a recreational drug or used a prescription medication for nonmedical reasons?: None Do you need a note to return Do you need a note to return to daycare/school/sports/work: No Coronavirus Screening Screening Have you traveled outside of [facility] or [facility] in the last 14 days.: No Has patient experienced coronavirus symptoms: No [facility] Medical History History of kidney cancer Hyperlipidemia Hypertension Surgical History section ( 2000) History of - surgery History of colonoscopy History of hysterectomy ( 2002) Status post oophorectomy ( 2013) Status post tonsillectomy ( 1964) Family History Mother Diabetes Father No problems noted. Social History Does the Patient have a Healthcare Proxy: No Does Patient have a DNR?: No Does Patient have a Living Will?: No Does the Patient have a MOLST?: No Advance Directives on File or in chart?: No Hx Recent Travel (where): No Smoking Status: Never smoker HPI Hypertension Followup (Card) * Onset: <3 months Current neurological symptoms: Denies diplopia, headache(s), numbness, loss of vision, weakness or other Current cardiovascular symptom: denies chest pain, dyspnea, dyspnea on exertion, palpitations, fatigue, dizziness or other Current endocrine symptoms: denies amenorrhea, diaphoretic episodes, myalgias, constipation, cold intolerance, weight gain, skin change or other Current renal disease symptoms: denies fatigue, nausea, vomiting, weight loss, edema, hematuria, foamy urine, change in urine output or other Most Recent Cardiac Tests: No Data to Display Monitoring BP monitoring: home monitoring and health professional BP comorbidities: less than 130/80 BP control: satisfactory BP target: less than 130/80 Diet type: low sodium Medication compliance: good Review of Systems Const Denies fatigue, Denies headache(s), Denies weakness, Denies weight gain and Denies weight loss Eyes Denies diplopia and Denies loss of vision ENT Denies dizziness and Denies headache(s) Card Denies chest pain, Denies edema, Denies palpitations, Denies dyspnea and Denies dyspnea on exertion Resp Denies dyspnea and Denies d yspnea on exertion GI Denies constipation, Denies nausea and Denies vomiting Genitourinary: Denies amenorrhea or hematuria Musc Denies myalgias and Denies numbness Neuro Denies dizziness, Denies headache(s), Denies loss of vision, Denies numbness and Denies weakness Endo Denies cold intolerance, Denies fatigue and Denies palpitations Exam Const General: cooperative and no acute distress Nutritional Appearance: overweight Orientation: alert, awake and oriented x3 Resp Effort Inspection: normal respiratory effort Cardio Rate: regular rate Rhythm: regular rhythm Extrem General: no clubbing, cyanosis or edema Assessment Plan Assessment Plan (1) Hypertension: Status: Acute Code(s): I10 - Essential (primary) hypertension SNOMED Code(s): 25023786 Category: Medical Qualifiers: Hypertension type: essential hypertension Qualified Code(s): I10 - Essential (primary) hypertension Plan - Luly Galvez M.D.: BP much improved, cleared for biopsies, see 6 weeks Orders Other Medications: Discontinued: clonidine HCl Discontinued Reason: Order changed 0.2 mg PO TID 30 days 90 tabs 5RF Electronically Signed By: <Electronically signed by Luly Galvez MD> Date/Time Signed: 03/31/20 1002 Name Value Range Interpretation Code Description Data Clare rce(s) Supporting Document(s) ID Date Data Source [id number] 03/27/2020 09:54:00 AM EDT [facility] Patient Name: EWELINA GARNETT OB: 1960 Sex: F Pt Unit #: [id number] Location:[facility] Provider: Visit Date/Time: 03/27/20 Primary Insurance: [facility] Secondary Insurance: Self Pay Intake Vital Signs 03/27/20 09:55 Current Height 5 ft Current Weight 227 lb Weight Measurement Method Standing Scale BMI 44.3 BP 166/100 Blood Pressure Location Rt brachial Position Sitting Respiration 12 Pulse 62 Pulse Strength Normal Pulse Source Pulse Oximeter Pulse Oximetry (%) 99 Oxygen Delivery Method room air Intake Visit Reasons: Hypertension Follow-up Nurse Note: Pt went for Breast Biopsy on 03/25/2020 her BP was 190/160 and they would not do Biopsy - has been monitioring BP at home, 145/89 was her reading this morning, States she has been taking hermedication, BP here today was some high, could not get a reading on her left arm, Pbx Repairer Required: No Accompanied by: Self / Same as Patient Is patient in pain?: No Allergies diltiazem HCl [From Cardizem] Allergy (Unverified 09/29/18 09:18) Hives Medications acetaminophen (Mapap Extra Strength) 1,000 mg PO Q4HPRN PRN clonidine HCl 0.2 mg PO TID 30 days clonidine HCl 0.3 mg PO TID lisinopril 20 mg PO BID 90 days metformin ER 500 mg PO QDAY 30 days metoprolol succinate ER 100 mg PO QDAY 90 days potassium chloride ER 20 mEq PO DAILY 30 days pravastatin 40 mg PO QDAY 90 days triamterene-hydrochlorothiazid 37.5-25 mg 1 tab PO DAILY 90 days Is last menstrual period known: No Post menopausal: Yes Patient : No Fall Risk History of falls: No Ambulatory Aid:: None Gait/Transferring:: Normal Medications:: No High Risk Medications PHQ-2/9 Over the last 2 weeks, how often have you been bothered by any of the following problems? 1. Little interest or pleasure in doing things: not at all 2. Feeling down, depressed, or hopeless: not at all Total score: 0 HIV Testing Offer - ages 13-64 HIV testing Offer: Yes Requirement for HIV testing offer been met?: Declines today. Pretest education received and acknowledged Hep C Testing Offered: Yes Hep C Requirement met: Patient reports past refusal SBIRT Annual Questionnaire Are you currently in recovery for alcohol or substance use?: No How many times in the past year have you had 4 or more drinks in a day?: None How many times in the past year have you used a recreational drug or used a prescription medication for nonmedical reasons?: None Do you need a note to return Do you need a note to return to daycare/school/sports/work: No Coronavirus Screening Screening Have you traveled outside of [facility] or [facility] in the last 14 days.: No Has patient experienced coronavirus symptoms: No PFSH Medical History History of kidney cancer Hyperlipidemia Hypertension Surgical History section ( 2000) History of - surgery History of colonoscopy History of hysterectomy ( 2002) Status post oophorectomy ( 2013) Status post tonsillectomy ( 1964) Family History Mother Diabetes Father No problems noted. Social History Does the Patient have a Healthcare Proxy: No Does Patient have a DNR?: No Does Patient have a Living Will?: No Does the Patient have a MOLST?: No Advance Directives on File or in chart?: No Hx Recent Travel (where): No Smoking Status: Never smoker HPI Hypertension Followup (Card) * Type of visit: follow-up Onset: 3-12 months Current neurological symptoms: Denies diplopia, headache(s), numbness, loss of vision, weakness or other Current cardiovascular symptom: d enies chest pain, dyspnea, dyspnea on exertion, palpitations, fatigue, dizziness or other Current endocrine symptoms: denies amenorrhea, diaphoretic episodes, myalgias, constipation, cold intolerance, weight gain, skin change or other Current renal disease symptoms: denies fatigue, nausea, vomiting, weight loss, edema, hematuria, foamy urine, change in urine output or other Most Recent Cardiac Tests: No Data to Display Monitoring BP monitoring: home monitoring and health professional BP comorbidities: less than 140/90 BP control: unsatisfactory BP target: less than 140/90 Diet type: low sodium Medication compliance: good Review of Systems Const Denies fatigue, Denies headache(s), Denies weakness, Denies weight gain and Denies weight loss Eyes Denies diplopia and Denies loss of vision ENT Denies dizziness and Denies headache(s) Card Denies chest pain, Denies edema, Denies palpitations, Denies dyspnea and Denies dyspnea on exertion Resp Denies dyspnea and Denies dyspnea on exertion GI Denies constipation, Denies nausea and Denies vomiting Genitourinary: Denies amenorrhea or hematuria Musc Denies myalgias and Denies numbness Neuro Denies dizziness, Denies headache(s), Denies loss of vision, Denies numbness and Denies weakness Endo Denies cold intolerance, Denies fatigue and Denies palpitations Exam Const General: cooperative and no acut e distress Eyes Pupils: PERRL Direct ophthalmoscopy: fundi normal bilaterally Resp Effort Inspection: normal respiratory effort Auscultation: no rales and no rhonchi Cardio Rate: regular rate Rhythm: regular rhythm Extrem General: no clubbing, cyanosis or edema Assessment Plan Assessment Plan (1) Hypertension: Status: Acute Code(s): I10 - Essential (primary) hypertension SNOMED Code(s): 25131000 Category: Medical Qualifiers: Hypertension type: essential hypertension Qualified Code(s): I10 - Essential (primary) hypertension Plan - Luly Galvez M.D.: increase dose of clonidine, continue other medications, much stress with breast cancer, see 5 days Orders Other Medications: New: clonidine HCl 0.3 mg PO TID 90 tabs 2RF Follow Up: 5 Days Electronically Signed By: <Electronically signed by Luly Galvez MD> Date/Time Signed: 03/27/20 1259 Name Value Range Interpretation Code Description Data Clare rce(s) Supporting Document(s) ID Date Data Source [id number] 03/28/2020 12:38:00 PM EDT [facility] Surgical Pathology ReportName: Alysa GARNETTMRN: [id number] Number: [id number] Date: 03/26/2020 00:00Received Date: 03/26/2020 14:17Physician(s): GARETT OSORIO MD ADJAPONG, OPOKU,MDSpecimen(s) ReceivedA: Material received for consultationClinical HistorySecond opinion.DiagnosisIMMUNOHISTOCHEMISTRY, LEFT BREAST AT 2:00, BIOPSY (OUTSIDE BLOCK [id number], 03/20/20):ESTROGEN RECEPTORS: Positive (moderate to strong, 95%).PROGESTERONE RECEPTORS: Positive (moderate to strong, 60%).HER2: Positive (3+). Electronically Signed By Ousmane Inman M.D., Attending Pathologist03/28/2020 12:38:33 Unless 'gross-only' is specified, the final diagnosis is based on amicroscopic examination of international sales representative sections of tissue.Gross DescriptionReceived from [facility] in [place], [place] is 1 paraffinblock, labeled [id number], with the corresponding pathology report. This report may include one or more immunohistochemical stain results thatuse analyte specific reagents. All positive and negative controls havebeen reviewed by the attending pathologist and are satisfactory. The testswere developed and their performance characteristics determined by [facility] Pathology department. They have not been cleared or approved by the USFood and Drug Administration. The FDA has determined that such clearanceor approval is not necessary. Name Value Range Interpretation Code Description Data Clare rce(s) Supporting Document(s) ID Date Data Source [id number] 03/06/2020 08:32:00 AM EDT [facility] ([facility]) Name Value Range Interpretation Code Description Data Clare rce(s) Supporting Document(s) Glucose [Presence] in Urine Laboratory test result [facility] ([facility]) Ua Leuko Laboratory test result [facility] ([facility]) Protein [Presence] in Urine by Test strip Laboratory test result [facility] ([facility]) Ua Nitrite Laboratory test result [facility] ([facility]) Ketones [Presence] in Urine by Test strip Laboratory test result [facility] ([facility]) Blood [Presence] in Urine by Visual Laboratory test result [facility] ([facility]) Color of Urine Laboratory test result [facility] ([facility]) Ua Specific [place] 1.015 1.003-1.030 [facility] NT ([facility]) pH of Urine by Test strip 5.5 5.0-7.5 [facility] ([facility]) Clarity of Urine Laboratory test result [facility] ([facility]) Urobilinogen [Mass/volume] in Urine by Test strip 0.2 E.U./dL 0.0-1.0 [facility] ([facility]) Bilirubin.total [Presence] in Urine by Test strip Laboratory test res ult [facility] ([facility]) ID Date Data Source Basic Metabolic Profile (BMP) 01/04/2020 12:00:00 AM EDT [facility]CW 1 ([facility]) Name Value Range Interpretation Code Description Data Clare rce(s) Supporting Document(s) 120 70-100 GLUCOSE, FASTING eCW1 ([facility]) 22 7-18 BLOOD UREA NITROGEN eCW1 ([facility]) 1.12 0.55-1.30 CREATININE FOR GFR eCW1 ([facility]) 4.3 3.5-5.1 POTASSIUM SERUM eCW1 ([facility] 140 136-145 SODIUM LEVEL eCW1 ([facility]) 53.0 >51 GLOMERULAR FILTRATION RATE eCW 1 ([facility]) 103 98-107 CHLORIDE LEVEL eCW1 ([facility]) 9.4 8.5-10.1 CALCIUM LEVEL eCW1 ([facility]) 33 21-32 CARBON DIOXIDE LEVEL eCW1 ([facility]) ID Date Data Source [id number] 01/03/2020 12:36:00 PM EDT [facility] Surgical Pathology Report* Amended *Name : EWELINA GARNETTMRN: [id number] Number: [id number] Date: 01/02/2020 00:00Received Date: 01/02/2020 10:24Physician(s): ELDER VALERA,DO OSORIO,GARETT,EVETTEpecimen(s) ReceivedA: Material received for consultation, GDLRClinical HistoryBreast mass. 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 Also do ER, OH, and Her2 reflex if equivocal. DiagnosisBREAST, RIGHT, NEEDLE BIOPSY ([id number], 12/26/19): DUCTAL CARCINOMAIN-SITU INVOLVING SCLEROSING ADENOSIS. (See Microscopic Description). HISTOLOGIC PATTERN: Solid and cribriformNUCLEAR GRADE: 2NECROSIS: Absent CALCIFICATION: PresentESTROGEN RECEPTORS: Positive (strong, 100% of cells).PROGESTERONE RECEPTORS: Positive (moderate, 80% of cells). Electronically Signed By Navid Rice M.D., Attending Pathologist01/03/2020 12:36:34 Gross DescriptionReceived from [facility] in [place], [place] are 2 H and Estained slides and one paraffin block labeled [id number] with thecorresponding pathology report./jrsMicroscopic DescriptionWhile the morphology is highly reminiscent of adenoid cystic carcinoma(ACC), the lack of pseudocysts with hyalinized globules and theimmuno histochemical findings argue against such diagnosis.Immunohistochemistry for p63/myosin, CK7, CD117, ER, OH and Her2 wasperformed in our lab. There is strong and diffuse staining with CK7, ERand OH. A positive multiplex p63/myosin stain only highlights the presenceof a thin intact myoepithelial around all glands. There is only very [id number] staining and Her2 is negative (1+). Characterstic features of ACCare missing and those include focal CK7 and CD117 staining of glandularcells only, p63 staining of basal cells only within pseudocysts, and lackof ER and OH expression. The overall features are those ductal carcinomain situ involving sclerosing adenosis or adenosis tumor, given thepresence of a mass. Thank for letting me see this interesting andchallenging case in consultation. AmendmentsAmended: 01/03/2020 by Navid Rice M.D.Reason: Unintended Sign-out Previous Signout Date: 01/03/2020This report may include one or more immunohistochemical stain results thatuse analyte specific re agents. All positive and negative controls havebeen reviewed by the attending pathologist and are satisfactory. The testswere developed and their performance characteristics determined by [facility] Pathology department. They have not been cleared or approved by the USFood and Drug Administration. The FDA has determined that such clearanceor approval is not necessary. Name Value Range Interpretation Code Description Data Clare rce(s) Supporting Document(s) ID Date Data Source [id number] 11/27/2019 01:30:00 PM EDT [facility] [address] [place] [address] [phone] NAME SEX PT STATUS ACCOUNT NUMBER EWELINA GARNETT REG REF [id number] ORDERING PHYSICIAN LOCATION MEDICAL RECORD NO. Luly Galvez MD MAMMO [id number] ATTENDING PHYSICIAN DATE OF DATE OF EXAM/TIME Luly Galvez MD [birth year] TYPE / EXAM DIG MAMMO DIAG RT [...] mammogram was read with the assistance of Not[employer], an FDA-approved computer-aided detection system for mammography. Reported By Judah Rodriguez MD on 11/27/191329 Signed By Judah Rodriguez MD on 11/27/191331 Date Time CC: Judah Rodriguez MD; Luly Galvez MD Techn: CUMME Trans Dt/Tm: Trans by: DT Prt Dt/Tm: 1: Total DLP = 0.00 mGy-cm : Total Radiation Dose = 0.0000 mSv Lifetime Dose: 0 mSv Name Value Range Interpretation Code Description Data Clare rce(s) Supporting Document(s) ID Date Data Source [id number] 11/27/2019 11:32:00 AM EDT [facility] [address] [place] [address] [phone] NAME SEX PT STATUS ACCOUNT NUMBER EWELINA GARNETT REG REF [id number] ORDERING PHYSICIAN LOCATION MEDICAL RECORD NO. Luly Galvez MD MAMMO [id number] ATTENDING PHYSICIAN DATE OF DATE OF EXAM/TIME Luly aGlvez MD 1960 11/27/19927 TYPE / EXAM US [...] = 0.0000 mSv Lifetime Dose: 0 mSv Name Value Range Interpretation Code Description Data Clare rce(s) Supporting Document(s) ID Date Data Source [id number] 11/21/2019 03:23:00 PM EDT [facility] [address] [place] [address] [phone] NAME SEX PT STATUS ACCOUNT NUMBER EWELINA GARNETT REG REF [id number] ORDERING PHYSICIAN LOCATION MEDICAL RECORD NO. Luly Galvez MD MAMMO [id number] ATTENDING PHYSICIAN DATE OF DATE OF EXAM/TIME [...] mammogram was read with the assistance of M- [employer], an FDA-approved computer-aided detection system for mammography. Reported By Judah Rodriguez MD on 11/21/19 1523 Signed By Judah Rodriguez MD on 11/21/19 1526 Date Time CC: Judah Rodriguez MD; Luly Galvez MD Techn: BAKLE Trans Dt/Tm: Trans by: DT Prt Dt/Tm: : Total DLP = 0.00 mGy-cm : Total Radiation Dose = 0.0000 mSv Lifetime Dose: 0 mSv Name Value Range Interpretation Code Description Data Clare rce(s) Supporting Document(s) ID Date Data Source [id number] 11/21/2019 10:40:00 AM EDT [facility] Name Value Range Interpretation Code Description Data Clare rce(s) Supporting Document(s) Leukocytes [#/volume] in Blood by Automated count 9.8 10*3/uL 4.45-10 .71 N [facility] Erythrocytes [#/volume] in Blood by Automated count 5.83 10*6/uL 4.20-5.40 Above high normal [facility] Hemoglobin [Moles/volume] in Blood 16.6 g/dL 10.7-15.4 Above high n ormal [facility] Hematocrit [Volume Fraction] of Blood by Automated count 50.5 % 37-47 Above high normal [facility] Erythrocyte mean corpuscular volume [Ent itic volume] in Cord blood by Automated count 86.6 fL 80-96 N [facility] Erythrocyte mean corpuscular hemoglobin [Entitic mass] by Automated count 28.5 pg 27-31 N [facility] l Erythrocyte mean corpuscular hemoglobin concentration [Mass/volume] in Cord blood 32.9 g/dL 33-37 Below low normal [facility] Erythrocyte distribution width [Entitic volume] by Automated count 14 % 11-15 N [facility] Platelets [#/volume] in Blood by Automated count 312 10*3/uL 130-472 N [facility] Platelet mean volume [Entitic volume] in Blood 9.9 fL 9.1-13.1 N [facility] Neutrophils/100 leukocytes in Blood by Automated count 67.4 % 41- 77 N [facility] Neutrophils [#/volume] in Blood by Automated count 6.6 U 1.7-7.6 N [facility] Lymphocytes/100 leukocytes in Blood by Automated count 20.3 % 14- 46 N [facility] Lymphocytes [#/volume] in Blood by Automated count 2.0 U 0.6-4.6 N [facility] Monocytes/100 leukocytes in Blood by Automated count 5.8 % 4-12 N [facility] Monocytes [#/volume] in Blood by Automated count 0.6 U 0.2-1.2 N [facility] Eosinophils/100 leukocytes in Blood by Automated count 5.1 % 0-7 N [facility] Eosinophils [#/volume] in Blood by Automated count 0.5 U 0.0-0.5 N [facility] Basophils/100 leukocytes in Blood by Automated count 0.9 % 0.4-1 .3 N [facility] Basophils [#/volume] in Blood by Automated count 0.1 U 0.0-0.2 N [facility] NUCLEATED RED BLOOD CELL 0 % [facility] NUCLEATED RED BLOOD CELL# 0 U [facility] Immature granulocytes [Presence] in Blood by Automated count 0-2 N [facility] Immature granulocytes [#/volume] in Blood by Automated count 0.1 U 0-0.1 N [facility] Manual Differential panel - Blood NO [facility] ID Date Data Source [id number] 11/21/2019 11:03:00 AM [facility] Name Value Range Interpretation Code Description Data Clare rce(s) Supporting Document(s) Hemoglobin A1c % 7.4 % 4.0-6.0 Above high normal [facility] The following ranges may be u sed for interpretation of results: HGBA1C degree of glucose control: Greater than 8%: Action Suggested * Less than 7%: Goal of Diabetic Therapy Less than 6%: NormalFactors such as duration of diabetes, adherence to therapyand the age of the patient should also be considered inassessing the degree of blood glucose control.* High risk of developing bed bug exterminator complications such asretinopathy, nephropathy, neuropathy, cardiopathy, etc. Some danger of hypoglycemic reaction in Type I diabetics.Some glucose intolerant individuals and "Sub Clinical"diabetics may demonstrate HGBA1C levels in this area. Glucose mean value [Moles/volume] in Blood Estimated f rom glycated hemoglobin 166 mg/dL [facility] An A1C of 7% - the goal of diabetic ther apy - is equivalentto an EAG of 154 mg/dl. ID Date Data Source [id number] 11/21/2019 11:22:00 AM [facility] Name Value Range Interpretation Code Description Data Clrae rce(s) Supporting Document(s) Urea nitrogen [Mass/volume] in Serum or Plasma 21 mg/dL 9-23 N [facility] Sodium [Moles/volume] in Serum or Plasma 141 mmol/L 132-146 [facility] Potassium [Moles/volume] in Serum or Plasma 3.2 mmol/L 3.5-5.5 Below low normal [facility] Chloride [Moles/volume] in Serum or Plasma 105 mmol/L 99-109 [facility] Carbon dioxide, total [Moles/volume] in Serum or Plasma 30 mmol/L 20 -31 N [facility] Anion gap in Serum or Plasma 9 mmol/L 8-16 N [facility] Glucose [Mass/volume] in Serum or Plasma 161 mg/dL 74-106 Above high normal [facility] Creatinine 1.1 mg/dL 0.5-1.1 [facility] Glomerular filtration rate/1.73 sq M.pre dicted [Volume Rate/Area] in Serum or Plasma 51 ml/min ABOVE 60 [facility] Alanine aminotransferase [Enzymatic acti vity/volume] in Serum or Plasma by With P-5'-P 30 U/L 10-49 N [facility] Aspartate aminotransferase [Enzymatic ac tivity/volume] in Serum or Plasma by With P-5'-P 12 U/L 0-33 N [facility] pital Alkaline phosphatase [Enzymatic activity/volume] in Serum or Plasma 73 U/L 45-129 N [facility] Calcium [Mass/volume] in Serum or Plasma 9.4 mg/dL 8.5-10.1 N [facility] Bilirubin.total [Mass/volume] in Serum or Plasma 0.6 mg/dL 0.3-1.2 N [facility] Albumin [Mass/volume] in Serum or Plasma by Bromocresol purple (BCP) dye binding method 3.7 g/dL 3.2-4.8 N [facility] Protein [Mass/volume] in Serum or Plasma 7.1 g/dL 5.7-8.2 N [facility] ID Date Data Source [id number] 11/21/2019 11:22:00 AM [facility] Name Value Range Interpretation Code Description Data Clare rce(s) Supporting Document(s) Triglycerides 212 mg/dL 0-150 Above high normal [facility] Cholesterol 174 mg/dL 120-200 N [facility] HDL Cholesterol 40 mg/dL [facility] HDL Less than 40 mg/dL: Major risk for CHDHDL Greater than 59 mg/dL: Low risk for CHD LDL Cholesterol, Calc 92 mg/dL 0-100 N [facility] ID Date Data Source [id number] 11/16/2019 10:27:00 AM [facility] Patient Name: EWELINA GARNETT OB: 1960 Sex: F Pt Unit #: [id number] Location:[facility] Provider: Visit Date/Time: 11/16/19 Primary Insurance: [facility] Secondary Insurance: Self Pay Intake Vital Signs 11/16/19 10:28 Current Height 5 ft Current Weight 231 lb Weight Measurement Method Standing Scale BMI 45.1 BP 132/68 Blood Pressure Location Rt brachial Position Sitting Respiration 12 Pulse 67 Pulse Strength Normal Pulse Source Pulse Oximeter Temp 98.2 F Temp Source Tympanic Pulse Oximetry (%) 98 Oxygen Delivery Method room air Intake Visit Reasons: Annual physical exam, Hypertension Follow-up Nurse Note: Annual PHY- Due for Mammo - Has had HYST- Refused Colonsocopy and BD- HTN follow up- States she has been doing well with BP meds - and Monitoring BP - Pbx Repairer Required: No Accompanied by: Self / Same as Patient Is patient in pain?: No Allergies diltiazem HCl [From Cardizem] Allergy (Unverified 09/29/18 09:18) Hives Medications acetaminophen (Mapap Extra Strength) 1,000 mg PO Q4HPRN PRN clonidine HCl 0.2 mg PO TID 30 days lisinopril 20 mg PO BID 90 days metformin ER 500 mg PO QDAY 30 days metoprolol succinate ER 100 mg PO QDAY 90 days potassium chloride ER 20 mEq PO DAILY 30 days pravastatin 40 mg PO HS 30 days triamterene-hydrochlorothiazid 37.5-25 mg 1 tab PO DAILY 90 days Is last menstrual period known: No Post menopausal: Yes Patient : No Fall Risk History of falls: No Ambulatory Aid:: None Gait/Transferring:: Normal Medications:: No High Risk Medications PHQ-2/9 Over the last 2 weeks, how often have you been bothered by any of the following problems? 1. Little interest or pleasure in doing things: not at all 2. Feeling down, depressed, or hopeless: not at all Total score: 0 HIV Testing Offer - ages 13-64 HIV testing Offer: Yes Requirement for HIV testing offer been met?: Declines today. Pretest education received and acknowledged Hep C Testing Offered: Yes Hep C Requirement met: Refuses today SBIRT Annual Questionnaire Are you currently in recovery for alcohol or substance use?: No How many times in the past year have you had 4 or more drinks in a day?: None How many times in the past year have you used a recreational drug or used a prescription medication for nonmedical reasons?: None Do you need a note to return Do you need a note to return to daycare/school/sports/work: No Coronavirus Screening Screening Have you traveled outside of [facility] or [facility] in the last 14 days.: No Has patient experienced coronavirus symptoms: No FOR[facility]LY [facility], [facility] Medical History History of kidney cancer Hyperlipidemia Hypertension Surgical History section ( 2000) History of - surgery History of colonoscopy History of hysterectomy ( 2002) Status post oophorectomy ( 2013) Status post tonsillectomy ( 1964) Family History Mother Diabetes Father No problems noted. Social History Does the Patient have a Healthcare Proxy: No Does Patient have a DNR?: No Does Patient have a Living Will?: No Does the Patient have a MOLST?: No Advance Directives on File or in chart?: No Hx Recent Travel (where): No HPI Hypertension Followup (Card) * Type of visit: follow- up Onset: 3-12 months Current neurological symptoms: Denies diplopia, headache(s), numbness, loss of vision, weakness or other Current cardiovascular symptom: denies chest pain, dyspnea, dyspnea on exertion, palpitations, fatigue, dizziness or other Current endocrine symptoms: denies amenorrhea, diaphoretic episodes, myalgias, constipation, cold intolerance, weight gain, skin change or other Current renal disease symptoms: denies fatigue, nausea, vomiting, weight loss, edema, hematuria, foamy urine, change in urine output or other Most Recent Cardiac Tests: No Data to Display Monitoring BP monit oring: home monitoring and health professional BP comorbidities: diabetes mellitus and less than 130/80 BP control: satisfactory BP target: less than 130/80 Diet type: low sodium and ADA Medication compliance: good Review of Systems Const Denies fatigue, Denies headache(s), Denies weakness, Denies weight gain and Denies weight loss Eyes Denies diplopia and Denies loss of vision ENT Denies dizziness and Denies headache(s) Card Denies chest pain, Denies edema, Denies palpitations, Denies dyspnea and Denies dyspnea on exertion Resp Denies dyspnea, Denies dyspnea on exertion and Denies wheezing GI Denies constipation, Denies nausea and Denies vomiting Denies amenorrhea and Denies hematuria Musc Denies myalgias and Denies numbness Skin/Breast Denies rash Neuro Denies dizziness, Denies headache(s), Denies loss of vision, Denies numbness and Denies weakness Psych Denies irritability Endo Denies cold intolerance, Denies fatigue and Denies palpitations Isrrael/Lymph Denies easy bleeding, Denies easy bruising and Denies lymphadenopathy Aller/Immun Denies wheezing Exam Const General: cooperative, healthy appearing and no acute distress Nutritional Appearance: well nourished [facility] Head: normal to inspection, normocephalic and atraumatic Ears: TM's normal bilaterally and EAC's normal General nose exam: external nose normal; no nasal discharge noted Mouth: oral mucosae normal Throat: posterior oropharynx normal and no postnasal drainage Eyes General: appearance normal, both eyes and all related structures Conjunctivae: conjunctivae normal Sclera: sclerae normal Neck Neck: normal visual inspection and full ROM Thyroid: thyroid normal Lymphatic: no lymphadenopathy noted Chest Chest: normal inspection of the chest Breast/Axilla Inspection: inspection of breasts abnormal and inspection of the axillae abnormal Breast/Axilla Palpation: palpation of the breasts abnormal, palpation of the axillae normal and axillary lymphadenopathy noted Resp Effort Inspection: normal respiratory effort Auscultation: no rales, no rhonchi and no wheezes Cardio Rate: regular rate Rhythm: regular rhythm Heart Sounds: no murmurs GI Inspection: Yes normal to inspection Palpation: soft, no masses and nontender Auscultation: normal bowel sounds Musc Cervical Spine: cervical ROM normal Thoracic/Lumbar Spine: thoracic and lumbar spine normal to inspectio n Neuro General: patient alert and patient awake Cranial Nerves: hearing normal Cognition: normal cognition Motor: muscle tone normal throughout Sensory Exam: no sensory deficits noted Extrem General: no clubbing, cyanosis or edema Psych Appearance: grossly normal Mental Status: mental status grossly normal Assessment Plan Assessment Plan (1) Hypertension: Status: Acute Code(s): I10 - Essential (primary) hypertension SNOMED Code(s): 31597524 Category: Medical Qualifiers: Hypertension type: essential hypertension Qualified Code(s): I10 - Essential (primary) hypertension (2) Encounter for routine adult medical exam with abnormal findings: Code(s): Z00.01 - Encounter for general adult medical examination with abnormal findings (3) Abnormal glucose: Code(s): R73.09 - Other abnormal glucose Orders: Orders: CMP 1 Month LIPID PANEL 1 Month CBC W AUTO DIFF 1 Month HGBA1C + EAG 1 Month Additional Comments Additional Comments: labs, BP's and BS's reviewed, doing ok, labs pending, no further headhaches, Chest pain, discussed diet and exercise, trying for 5lb weight loss, see 6 months, mammo and cologuard ordered Orders Other Orders: Orders: 3D DIG MAMMO SCREEN BILAT 1 Month Z12.31 Instructions: DASH Eating Plan (GEN) Hypertension (GEN) Follow Up: 6 Months Electronically Signed By: <Electronically signed by Luly Galvez MD> Date/Time Signed: 11/16/19 1229 Name Value Range Interpretation Code Description Data Clare rce(s) Supporting Document(s) Procedure Social History Code Duration Value Status Description Data Source(s ) Smoking 09/01/2020 12:00:00 AM EST Patient is a former smoker completed Patient is a former smoker [facility] ([facility]) Smoking 03/26/2020 04:19:00 PM EDT Never smoker completed Never [facility] Smoking 03/26/2020 04:19:00 PM EDT Never smoker completed Never [facility] Smoking 03/26/2020 04:19:00 PM EDT Never smoker completed Never [facility] 03/26/2020 03:19:00 PM EDT Never smoker completed Never [facility] 03/26/2020 03:19:00 PM EDT Never smoker completed Never s [facility] 03/26/2020 03:19:00 PM EDT Never smoker completed Never s [facility] 03/26/2020 03:19:00 PM EDT Never smoker completed Never [facility] Smoking 03/26/2020 03:19:00 PM EDT Never smoker completed Never [facility] 03/26/2020 03:19:00 PM EDT Never smoker completed Never [facility] Smoking 03/26/2020 03:19:00 PM EDT Never smoker completed Never [facility] Smoking 03/03/2020 12:00:00 AM EDT Quit - Age 23 completed Quit - Age 23 [facility] ([facility]) 11/16/2019 10:46:00 AM EDT Former smoker completed Former smoker [facility] 11/16/2019 10:46:00 AM EDT No completed No [facility] 11/16/2019 10:46:00 AM EDT No completed No [facility] 11/16/2019 10:46:00 AM EDT Former smoker completed Former smoker [facility] 11/16/2019 10:46:00 AM EDT No completed No [facility] 11/16/2019 10:46:00 AM EDT No completed No [facility] Vital Signs ID Date Data Source UNK Name Value Range Interpretation Code Description Data Source(s) Body mass index (BMI) [Ratio] 40.2 kg/m2 40.2 k g/m2 [facility] ([facility]) Body weight 206.00 [lb_av] 206.00 [lb_av] MEDEN T ([facility]) Body height 60 [in_i] 60 [in_i] [facility]) 5'0" Diastolic blood pressure 110 mm[Hg] 110 mm[Hg] [facility] ([facility]) Systolic blood pressure 160 mm[Hg] 160 mm[Hg] M EDENT ([facility]) Diastolic blood pressure 74 mm[Hg] 74 mm[Hg] eCW1 ([facility]) Systolic blood pressure 138 mm[Hg] 138 mm[Hg] e CW1 ([facility]) Body temperature 97.2 [degF] 97.2 [degF] eCW1 ( [facility]) Respiratory rate 18 /min 18 /min eCW1 ([facility]) Heart rate 82 /min 82 /min [facility]CW[facility] Body mass index (BMI) [Ratio] 39.66 kg/m2 39.66 kg/m2 eCW1 ([facility]) Body height 64 [in_i] 64 [in_i] eCW1 ([facility]) Body weight 104.83 kg 104.83 kg eCW1 ([facility]) Body weight 231.1 [lb_av] 231.1 [lb_av] eCW1 ([facility]) Heart rate 58 /min 58 /min [facility] ([facility] Diastolic blood pressure 96 mm[Hg] 96 mm[Hg] [facility] ([facility]) Systolic blood pressure 184 mm[Hg] 184 mm[Hg] M EDENT ([facility]) Body mass index (BMI) [Ratio] 46.9 kg/m2 46.9 k g/m2 [facility] ([facility]) Body weight 108.864 kg 108.864 kg [facility] ([facility] Body weight 240.00 [lb_av] 240.00 [lb_av] MEDEN T ([facility]) Body height 60 [in_i] 60 [in_i] [facility] ([facility] 5'0" Diastolic blood pressure 78 mm[Hg] 78 mm[Hg] eCW1 ([facility]) Systolic blood pressure 138 mm[Hg] 138 mm[Hg] e CW1 ([facility]) Body temperature 97.1 [degF] 97.1 [degF] eCW1 ( [facility]) Respiratory rate 18 /min 18 /min eCW1 ([facility]) Heart rate 80 /min 80 /min eCW1 [facility] Body mass index (BMI) [Ratio] 39.65 kg/m2 39.65 kg/m2 W1 ([facility]) Body height 64 [in_i] 64 [in_i] eCW1 ([facility]) Body weight 231 [lb_av] 231 [lb_av] eCW1 ([facility]) Diastolic blood pressure 72 mm[Hg] 72 mm[Hg] eCW1 ([facility]) Systolic blood pressure 124 mm[Hg] 124 mm[Hg] e CW1 ([facility]) Body temperature 98.1 [degF] 98.1 [degF] eCW1 ( [facility]) Respiratory rate 18 /min 18 /min eCW1 ([facility]) Heart rate 60 /min 60 /min eCW1 [facility] Body mass index (BMI) [Ratio] 39.78 kg/m2 39.78 kg/m2 eCW1 ([facility]) Body height 64 [in_i] 64 [in_i] eCW1 ([facility]) Body weight 231.8 [lb_av] 231.8 [lb_av] eCW1 ([facility]) Patient Treatment Plan of Care Planned Activity Planned Date Details Description Data Source (s) Nystatin 100 UNT/MG Topical Powder 08/26/2020 12:00:00 AM EST eCW1 ([facility]) Fluconazole 150 MG Oral Tablet 08/26/2020 12:00:00 AM EST eCW1 ([facility]) Lidocaine 25 MG/ML / Prilocaine 25 MG/ML Topical Cream 08/03/2020 12:00:00 AM EST eCW1 ([facility]) Lidocaine 25 MG/ML / Prilocaine 25 MG/ML Topical Cream 08/03/2020 12:00:00 AM EST eCW1 ([facility]) Lidocaine 25 MG/ML / Prilocaine 25 MG/ML Topical Cream 08/03/2020 12:00:00 AM EST eCW1 ([facility]) Lidocaine 25 MG/ML / Prilocaine 25 MG/ML Topical Cream 08/03/2020 12:00:00 AM EST eCW1 ([facility]) Lidocaine 25 MG/ML / Prilocaine 25 MG/ML Topical Cream 08/03/2020 12:00:00 AM EST eCW1 ([facility]) Lidocaine 25 MG/ML / Prilocaine 25 MG/ML Topical Cream 08/03/2020 12:00:00 AM EST eCW1 ([facility]) Lidocaine 25 MG/ML / Prilocaine 25 MG/ML Topical Cream 08/03/2020 12:00:00 AM EST eCW1 ([facility]) Nystatin 100 UNT/MG Topical Powder 07/28/2020 12:00:00 AM EST eCW1 ([facility]) Nystatin 100 UNT/MG Topical Powder 07/28/2020 12:00:00 AM EST eCW1 ([facility]) Nystatin 100 UNT/MG Topical Powder 07/28/2020 12:00:00 AM EST eCW1 ([facility]) Nystatin 100 UNT/MG Topical Powder 07/28/2020 12:00:00 AM EST eCW1 ([facility]) Nystatin 100 UNT/MG Topical Powder 07/28/2020 12:00:00 AM EST eCW1 ([facility]) Nystatin 100 UNT/MG Topical Powder 07/28/2020 12:00:00 AM EST eCW1 ([facility]) Nystatin 100 UNT/MG Topical Powder 07/28/2020 12:00:00 AM EST eCW1 ([facility])
[2020-09-12] MEDS ORDERED: LIDOCAINE 5% (LIDODERM) PATCH As Ordered ONE (07:15)
[2020-09-12] MEDS ORDERED: NS 1,000 ML IV ONE (07:35)
[2020-09-12] MEDS ORDERED: HEPARIN SOD (PORCINE) 5000UNITS/ML 1ML VIAL/SYRINGE As Ordered ONE (08:20)
[2020-09-12] MEDS ORDERED: ceFAZolin 2 GM/D5W 50 ML IV BAG (J0690 PER 500MG) As Ordered ONE (08:20)
[2020-09-12] MEDS ORDERED: ceFAZolin 1GM VIAL (J0690 PER 500MG) As Ordered ONE (08:20)
[2020-09-12] MEDS ORDERED: ACETAMINOPHEN 1000MG 100ML IV BTL (OFIRMEV) (J0131 PER 10MG) As Ordered ONE ×2 (08:29→16:52)
[2020-09-12] MEDS ORDERED: SUGAMMADEX SODIUM 500 MG/5 ML VIAL (BRIDION) As Ordered ONE ×2 (08:29→11:59)
[2020-09-12] MEDS ORDERED: fentaNYL 100 MCG/2 ML INJECTION (J3010) As Ordered ONE ×4 (08:29→19:53)
[2020-09-12] MEDS ORDERED: dexameTHASONE 4 MG/ML 1ML VIAL (J1100 PER 1MG) As Ordered ONE ×2 (08:29→10:33)
[2020-09-12] MEDS ORDERED: MIDAZOLAM INJ 2MG/2ML VIAL (J2250 PER 1MG) As Ordered ONE ×2 (08:29→10:33)
[2020-09-12] MEDS ORDERED: KETOROLAC 60MG 2ML VIAL As Ordered ONE (08:29)
[2020-09-12] MEDS ORDERED: LIDOCAINE 2% 100MG/5ML SDV (FOR ANES.) As Ordered ONE ×2 (08:29→10:33)
[2020-09-12] MEDS ORDERED: propofoL 200 MG/20 ML VIAL As Ordered ONE ×2 (08:29→10:33)
[2020-09-12] MEDS ORDERED: ONDANSETRON 4MG/2ML VIAL As Ordered ONE ×4 (08:29→20:20)
[2020-09-12] MEDS ORDERED: ROCURONIUM BROMIDE 50 MG/5 ML VIAL As Ordered ONE ×3 (08:29→10:59)
[2020-09-12] MEDS ORDERED: LIDOCAINE 5% (LIDODERM) PATCH TD ONE (09:15)
[2020-09-12] MEDS ORDERED: SCOPOLAMINE 1MG TRANSDERMAL PATCH TOP ONE (09:40)
[2020-09-12] MEDS ORDERED: BUPIVACAINE LIPOSOME/PF 1.3% 20ML VIAL (13.3MG/ML)(EXPAREL)(C9290 PER1MG) As Ordered ONE (09:41)
[2020-09-12] MEDS ORDERED: SCOPOLAMINE 1MG TRANSDERMAL PATCH As Ordered ONE (09:42)
[2020-09-12] MEDS ORDERED: METHYLENE BLUE 0.5% (5MG/ML) 10 ML AMP (PROVAYBLUE) As Ordered ONE (10:33)
[2020-09-12] MEDS ORDERED: PHENYLephrine 500MCG 5ML (100MCG/ML) SYRINGE As Ordered ONE (10:34)
[2020-09-12] MEDS ORDERED: ePHEDrine SULFATE 25 MG/5 ML(5MG/ML) SYRINGE As Ordered ONE ×2 (11:28→17:37)
[2020-09-12] MEDS ORDERED: MORPHINE 10 MG/ML 1ML VIAL (J2270) As Ordered ONE (11:46)
[2020-09-12] MEDS ORDERED: GLYCOPYRROLATE INJ 0.2 MG/ML 2 ML VIAL As Ordered ONE (12:09)
[2020-09-12] MEDS: ceFAZolin 2 GM/D5W 50 ML IV BAG (J0690 PER 500MG) As Ordered ONE (15:27)
[2020-09-12] MEDS: ceFAZolin 1GM VIAL (J0690 PER 500MG) As Ordered ONE (15:27)
--- NOTE | 2020-09-12 17:00 | REP ---
INDICATION: BILATERAL SIMPLE MASTECTECTOMY SENTINAL LYMPHNODE BIOPSY. COMPARISON: None. TECHNIQUE: Ultrasound guidance. FINDINGS: Sonographic guidance is provided to Dr. Carrasco who performed needle localization procedure. IMPRESSION: Sonographic guidance. <Electronically signed by Kip Zuniga > 09/12/20 [id number]
--- NOTE | 2020-09-12 17:37 | REP ---
INDICATION: BILATERAL BREAST CA. COMPARISON: None. TECHNIQUE: The procedure was performed under the direct supervision of Dr. Zuniga. The images were reviewed with Dr. Zuniga. The risks and benefits of the procedure were explained to the patient and informed consent was obtained. The right breast was addressed 1st. Using topical anesthetic and sterile technique 1.017 mCi of technetium 99 filtered sulfur colloid was injected subdermally in 8 fractionated periareolar injections. The left breast was then addressed. Using topical anesthetic and sterile technique 1.014 mCi of technetium 99 filtered sulfur colloid was injected subdermally an 8 fractionated periareolar injections. Images obtained 1 hour after injection show bilateral lian uptake. FINDINGS: None IMPRESSION: Bilateral breast lymphoscintigraphy. There is bilateral lian uptake. <Electronically signed by William Mendez > 09/12/20 1629 <Electronically signed by Kip Zuniga > 09/12/20 [id number]
[2020-09-12] MEDS ORDERED: ACETAMINOPHEN TAB 650MG DOSE (2X325MG) PO PRN (19:25)
[2020-09-12] MEDS ORDERED: ONDANSETRON 4MG/2ML VIAL IV PRN ×2 (19:25→19:40)
[2020-09-12] MEDS ORDERED: traMADol 50 MG TAB PO PRN (19:25)
[2020-09-12] MEDS ORDERED: MORPHINE 2 MG/ML 1ML VIAL (J2270) IV PRN (19:25)
[2020-09-12] MEDS ORDERED: hydrALAZINE 20MG/ML 1ML VIAL (J0360 PER 20MG) As Ordered ONE (19:36)
[2020-09-12] MEDS: hydrALAZINE 20MG/ML 1ML VIAL (J0360 PER 20MG) IV PRN ×3 (19:40→20:00)
[2020-09-12] MEDS ORDERED: LR 1,000 ML IV SCH (19:40)
[2020-09-12] MEDS ORDERED: oxyCODONE 5MG TAB PO PRN (19:40)
[2020-09-12] MEDS: fentaNYL 100 MCG/2 ML INJECTION (J3010) IV PRN ×4 (19:54→20:22)
[2020-09-12] MEDS ORDERED: METOCLOPRAMIDE INJ 10MG/2ML VIAL (J2765 PER 1) As Ordered ONE (20:28)
[2020-09-12] MEDS ORDERED: METOCLOPRAMIDE INJ 10MG/2ML VIAL (J2765 PER 1) IV PRN (20:35)
[2020-09-12 20:50] VITALS: BP 157/90
[2020-09-12] MEDS: NYSTATIN 100,000 UNITS/GM TOPICAL PWD 15 GM TOP SCH (21:00)
[2020-09-12 21:20] VITALS: BP 157/91
--- NOTE | 2020-09-12 21:32 | CR.PDOC ---
General Date of Consultation: Sep 12, 2020 Referring Provider: ELDER VALERA DO Attending Physician: ELDER VALERA DO Consultation TIME OF SERVICE: 910pm REASON FOR CONSULTATION/CHIEF COMPLAINT: Uncontrolled HTN HISTORY OF PRESENT ILLNESS: This 60 yr old F underwent bilateral mastectomy to manage ER+, LA+ HER2 +breast cancer today; we were consulted to help manage the patients blood pressure. She has had HTN for over 10 yrs and denies having CVA, MS or vision changes as a result of uncontrolled BP. Her regimen includes Lisinopril 20 mg BID, clonidine 0.3 mg TID, triamterene-HTCZ 37.5-25 daily, and metoprolol succinate 100mg daily. This morning she didnt take Lisinopril and triamterene-HTCZ. She denies having any acute pain right now. REVIEW OF SYSTEMS: 12-point review of systems negative except as listed in HPI PAST MEDICAL/ SURGICAL HISTORY: Resistant HTN NIDDM OA Right sided renal cell cancer s/o partial nephrectomy ER+, LA+ HER2 +breast cancer has received neoadjuvant paclitaxel, trastuzumab and pertusumab, s/p bilateral mastectomies Class 3 obesity DAMARIS CLINT w BSO 3 C-sections SOCIAL HISTORY: She doesnt smoke, drink or use recreational drugs, is a house & lives with her . FAMILY HISTORY: DM, lung cancer, colon cancer, HTN, depression, OA ALLERGIES: Please see below. HOME MEDICATIONS: Please see below. PHYSICAL EXAMINATION: Vital Signs Date Time Temp Pulse Resp B/P (MAP) Pulse Ox O2 Delivery O2 Flow Rate FiO2 09/12/20 07:29 96.6 63 18 150/88 (108) 98 Room Air 09/12/20 18:57 3 GENERAL APPEARANCE: well nourished & developed HEENT: EOMI / neck short ABDOMEN: obese MUSCULOSKELETAL: chest wall wrapped in clean and dry dressings / NCAT NEUROLOGICAL: CN 2-12 grossly intact / speech not dysarthric PSYCHIATRIC: A & Ox 3 / able to understand and follow all commands LABORATORY DATA: 09/12/20 07:29: Bedside Glucose (Misc Panel) 149H 09/12/20 22:27: Bedside Glucose (Misc Panel) 184H IMAGING: Lymph Scan NM IMPRESSION: Bilateral breast lymphoscintigraphy. There is bilateral lian uptake. ASSESSMENT: is a 60 yr old w a hx of resistant HTN, NIDDM, OA, obesity, partial nephrectomy to manage renal cell CA who underwent bilateral mastectomies to manage ER/LA/HER2 + breast cancer; we were consulted to help mange her HTN. PLAN: 1 Breast Cancer POD #0 Plan per primary 2 Resistant HTN Plan: resume Lisinopril 20 mg BID, clonidine 0.3 mg TID, triamterene-HTCZ 37.5- 25 daily, and metoprolol succinate 100mg daily/ would recommend referral to a Hypertension specialist (Nephrology or Cardio) for a work-up to r/o secondary causes of HTN which can be done on an out patient basis 3 NIDDM Plan consistent carbohydrate diet/ f/u A1C, FSBS / SSI w hypoglycemia protocol DVT per primary team Thank you for consulting us. We will f/u on her BP in the morning. Allergies Coded Allergies: diltiazem (Verified Allergy, Intermediate, HIVES, 09/12/20) Home Medications Scheduled Clonidine HCl (Clonidine HCl) 0.3 Mg Tablet, 0.3 MG PO TID, (Reported) Hydralazine HCl (Hydralazine HCl) 25 Mg Tablet, 25 MG PO TID, (Reported) Lisinopril (Lisinopril) 20 Mg Tablet, 1 TAB PO BID for 30 Days, #30 (Reported) Metformin HCl (Metformin HCl) 500 Mg Tablet, 500 MG PO DAILY, (Reported) Metoprolol Succinate (Metoprolol Succinate) 100 Mg Tab.er.24h, 1 TAB PO DAILY for 30 Days, #30 (Reported) Potassium Chloride (Potassium Chloride) 20 Meq Tab.er.prt, BID, (Reported) Pravastatin Sodium (Pravastatin Sodium) 40 Mg Tablet, 1 TAB PO QPM for 30 Days, #30 (Reported) Triamterene/Hydrochlorothiazid (Triamterene-Hctz 37.5-25 mg Cp) 1 Each Capsule, 1 CAP PO DAILY for 30 Days, #30 (Reported) SKYLAR VILLEGAS MD Sep 12, 2020 21:32
[2020-09-12] MEDS ORDERED: GLUCOSE 4GM CHEW TABLET PO PRN (21:35)
[2020-09-12] MEDS ORDERED: GLUCAGON INJ 1MG VIAL SC PRN (21:35)
[2020-09-12] MEDS ORDERED: **hydrALAZINE HCL** 25 MG TAB PO SCH (21:35)
[2020-09-12] MEDS ORDERED: DEXTROSE 50% 50 ML SYRINGE IV PRN (21:35)
[2020-09-12 22:20] VITALS: BP 154/90
[2020-09-12] MEDS: LR 1,000 ML IV SCH (22:28)
[2020-09-12] MEDS: ceFAZolin SOD 2 GM in IV 1 EA IV SCH (22:29)
[2020-09-12] MEDS: POTASSIUM CHLORIDE 10 MEQ SR TABLET PO SCH (22:29)
[2020-09-12] MEDS: FLUCONAZOLE 100 MG TAB PO SCH (22:30)
[2020-09-12] MEDS: cloNIDine 0.1MG TABLET PO SCH (22:30)
[2020-09-12] MEDS: HumaLOG INSULIN (NovoLOG) PER UNIT SC SCH (22:31)
[2020-09-12 23:20] VITALS: BP 158/96
[2020-09-13 01:20] VITALS: BP 159/98
[2020-09-13] MEDS: ceFAZolin SOD 2 GM in IV 1 EA IV SCH (05:03)
[2020-09-13 06:00] VITALS: BP 177/99
[2020-09-13] MEDS: cloNIDine 0.1MG TABLET PO SCH ×4 (06:34→20:43)
[2020-09-13 06:59] LABS: HEMOGLOBIN A1c 6.2 %
[2020-09-13] MEDS: HumaLOG INSULIN (NovoLOG) PER UNIT SC SCH ×4 (07:30→20:45)
--- NOTE | 2020-09-13 08:33 | ROOPDOC ---
[facility] Report Of Operation Report of Operation DATE OF PROCEDURE: 09/12/20 PREPROCEDURE DIAGNOSES: bilateral breast cancer, s/p chemo POSTPROCEDURE DIAGNOSES: same PROCEDURE: bilateral simple mastectomy, bilateral intraop wire placement into previously biopsied axillary lymph nodes, bilateral targeter excision of previously biopsied axillary lymph nodes, bilateral intraop injection of blue dye, bilateral sentinel lymph node biopsywith dual tracer, bilateral pectoralis and seratus muscle blocks, right abdominal mole excision SURGEON: Shabnam Carrasco ANESTHESIA: general ESTIMATED BLOOD LOSS: Approximately 200 mL. COMPLICATIONS: none REMARKS: b/l fozens negative DESCRIPTION OF PROCEDURE: INDICATIONS: Ms. Marylin Garnett is a 60 year old lady who was found to have abnormal right breast mammogram. The lesion was biopsied and came back ad DCIS. On exam, patient was also found to have two areas of palpable abnormalities in the left breast. The mammogram was normal. Sonographically there were suspicious lesions identifies. US guided biopsy was done of both lesions and pathology came back positive for IDC ER+AK+Her2+. MRI showed extensive left breast disease with suspicious b/l axillary lymph nodes. B/L US guided biopsy of axillary lymph nodes was done with radiology team and pathology was benign. PET scan was negative for suspicious findings. Patient underwent chemotherapy. She did have good response to treatment although no complete radiologic response. We discussed surgical options and patient opted for simple mastectomy without reconstruction. I explained to the patient that because she has invasive breast cancer we also need to evaluate her lymph nodes with bilateral sentinel lymph node biopsy. In addition, since she had bilateral lymph node biopsy done with clips placement, targeted excision of those nodes is indicated to rule out false negative. Two intraoperative wires will be placed to guide the dissection toward the nodes. I also explained to the patient that bilateral frozen section will be taken of the lymph nodes and if any cancer cells are found, completion axillary dissection will be done on the affected side or sides. Patient received surgical clearance from her PCP, however, the original surgery date had to be cancelled due to patients hypertensive urgency. I had to adjust patients medications and urgently send her to her PCP. Medications were adjusted and cardiology evaluation was also completed prior to the second surgical date. Risks and possible complications of surgical procedure including bleeding, infection and injury to surrounding structures, lymphedema, nerve and vessel injury, poor cosmetic results, need for additional surgery, were explained to the patient and she wished to proceed. Consent was signed. Subcutaneous heparin 5000 units was given to patient in the preop area. Lymphoscintigraphy was reviewed preoperatively and the tracer was found in both axillas. Patient was marked in the Preop by me. DETAILS: Patient was taken to the operating room and placed supine on the operating room table. Pillow was placed under her knees. Foam was placed under her heels. A sign in was called stating patients name, date of and the procedure to be done. Preoperative antibiotics were infused. Smooth induction of general anesthesia was done. Patients hands were extended on arm rests. Care was taken not to over extend patients arms. Santos catheter was placed. Sequential compression devices were placed and assured to function correctly. Ultrasound was used to yana the location of right breast cancer and multifocal left breast cancer on the skin which later on was marked with a double stich at each location. At this time, bilateral breast and bilateral axillas were prepped by me. Next, my attention was turned toward right axilla where the previously biopsied lymph node was with Hydromark. Ultrasound was again used to identify the location of this node. Appropriate time out was done and patients name, date of , and the procedure to be done were confirmed. 21 G Kopans Breast Lesion Localization Needle was used to place 25 cm wire through the right axillary lymph node with the Hydromark. The images were captured confirming adequate placement of the localizing wire. Bending Machine Operator assisted with the wire placement. Next, my attention was turned toward the left axilla where the second previously biopsied lymph node with Hydromark clip was located. Ultrasound was again used to confirm this location. Again, 21 G Kopans Breast Lesion Localization Needle was used to place 25 cm wire through that lymph node. The images were captured confirming adequate placement of the localizing wire. Bending Machine Operator assisted with the wire placement. Patients bilateral breasts and axillas were re-prepped by me making sure that the wires are not displaced. The surgical field was draped in the usual fashion. Neoprobe was used to yana the sites of maximal signal in the axilla. Appropriate time out was done and patients name, date of , and the procedure to be done were confirmed. At this time bilateral breast cancer locations were marked using 3-0 Silk double stitch. Methylene blue dye was injected into the upper outer quadrant of the right breast and the breast was massaged to improve drainage of the blue dye toward axilla. Procedure was started with right mastectomy. The incision was made along the previously marked border to achieve the scar at the inframammary fold. Subcutaneous flaps were developed using electrocautery dissection. Dissection was carried toward the inframammary fold inferiorly, toward sternum medially, toward inferior aspect of clavicle superiorly and toward the axilla laterally. Of note, right chest port-a-cath was left in place without violation of tissue plane where the port is located. Breast tissue was dissected from the muscle posteriorly and pectoralis fascia was taken with the specimen. The dissection was carried all the way to the Tail of [place] making sure that axilla is not entered prematurely. Breast specimen was marked for orientation with short single stitch marking superior edge of mastectomy and long single stitch marking lateral edge of mastectomy. The specimen was weighted and weight of 1423 grams was reported. The specimen was marked with patients information and right jonh ast mastectomy. It was then placed in formaldehyde, and passed to pathology. Mastectomy cavity was irrigated and hemostasis was achieved. At this point, right clavipectoral fascia was opened. Dissection was carried toward the previously identified lymph node with Hydromark. The localizing wire was carefully pulled into the wound. The deep right axillary clipped lymph node was identified and carefully dissected from the surrounding tissue. Upon excision, it was interrogated with Neoprobe. No signal was present. This lymph node was not blue either. The lymph node was placed on the grid and placed into [facility] System. The image revealed the clip inside the tissue. The specimen was labeled with patients name and right biopsied lymph node, not hot, not blue and sent to pathology for frozen section evaluation. Pathology froze half of the node and the other half was sent for permanent. No malignancy was identified on this frozen section. Next, Neoprobe was placed into the right axilla to identify a sentinel lymph node. A high signal node was identified in the mid/ inferior deep axilla. This lymph node was excised and was blue The ex-vivo 10 [place] count was [address]. The specimens were labeled with patients name and right sentinel lymph node and sent to pathology for frozen section evaluation. Pathology froze half of the node and the other half was sent for permanent. No malignancy was identified on this frozen section. No additional lymph nodes with high radioactive signal were identified. There were no blue or palpable lymph nodes either. The 10 second count of the background was 69. At this point, two 15 Cambodian Romeo drain were placed into the mastectomy cavity and into right axilla through separate stab incisions and secured at the skin wi th stitches. Next, pectoral and serratus plane blocks on the right side were also done with Exparel. Deep dermal sutures were placed with 2-0 Vicryl to approximate mastectomy site edges. Dermis was closed with 3-0 Vicryl. Skin was closed with 4-0 Monocryl. Surgical glue was applied to the top of the incision. Prineo skin closing system dressing was applied next to the incision. Gloves were changes at this point and we proceeded with the left breast mastectomy. Methylene blue dye was injected into the upper outer quadrant of the left breast and the breast was massaged to improve drainage of the blue dye toward axilla. The incision was made along the previously marked border to achieve the scar at the inframammary fold. Subcutaneous flaps were developed using electrocautery dissection. Dissection was carried toward the inframammary fold inferiorly, toward sternum medially, toward inferior aspect of clavicle superiorly and toward the axilla laterally. Breast tissue was dissected from the muscle posteriorly and pectoralis fascia was taken with the specimen. The dissection was carried all the way to the T[place] making sure that axilla is not entered prematurely. Breast specimen was marked for orientation with short single stitch marking superior edge of mastectomy and long single stitch marking lateral edge of mastectomy. The specimen was weighted and weight of 1263 grams was reported. The specimen was marked with patients information and left breast mastectomy. It was then placed in formaldehyde, and passed to pathology. Mastectomy cavity was irrigated and hemostasis was achieved. At this point, left clavipectoral fascia was opened. Dissection was carried toward the previously identified lymph node with Hydromark. The localizing wire was carefully pulled into the wound. The deep left axillary clipped lymph node was identified and carefully dissected from the surrounding tissue. Upon excision, it was interrogated with Neoprobe. No signal was present. This lymph node was not blue either. The lymph node was placed on the grid and placed into [facility]imen [facility] System. The image revealed the clip inside the tissue. The specimen was labeled with patients name and left biopsied lymph node, not hot, not blue and sent to pathology for frozen section evaluation. Pathology froze half of the node and the other half was sent for permanent. No malignancy was identified on this frozen section. Next, Neoprobe was placed into the left axilla to identify a sentinel lymph node. A high signal node was identified in the medial aspect of deep axilla. This lymph node was excised. The ex-vivo 10 second count was 4256. The specimens were labeled with patients name and left sentinel lymph node and sent to pathology for frozen section evaluation. Pathology froze half of the node and the other half was sent for permanent. No malignancy was identified on this frozen section. No additional lymph nodes with high radioactive signal were identified. There were no blue or palpable lymph nodes either. The 10 second count of the background was 4. At this point, two 15 Cambodian Romeo drain were placed into the mastectomy cavity and into left axilla through separate stab incisions and secured at the skin with stitches. Next, pectoral and serratus plane blocks on the right side were also done with Exparel. Deep dermal sutures were placed with 2-0 Vicryl to approximate mastectomy site edges. Dermis was closed with 3-0 Vicryl. Skin was closed with 4-0 Monocryl. Surgical glue was applied to the top of the incision. Prineo skin closing system dressing was applied next to the incision. At this point, my attention was turned toward the Right abdominal mole which patient requested to have removed as it catches on clothes. A small elliptical incision was made and a mole was excised to the level of dermis. The excised tissue was labeled with patients name and right abdominal mole and sent to pathology for permanent evaluation. The skin defect was closed with 4-0 Monocryl interrupted stitch and covered with the glue. Surgical bra was placed and the incisions were covered with gauze. Unwrapped kerlix was placed at each axilla. Final instruments and sponge count were correct. Patient emerged from general anesthesia without any problems. Patient tolerated procedure well and was taken to recovery unit in stable condition. Santos catheter was removed in the operating room. SHABNAM CARRASCO DO Sep 13, 2020 08:33
[2020-09-13] MEDS: POTASSIUM CHLORIDE 10 MEQ SR TABLET PO SCH ×2 (08:50→20:42)
[2020-09-13] MEDS: DYAZIDE 37.5/25 CAP (TRIAM/HCTZ) PO SCH (08:51)
[2020-09-13] MEDS: **hydrALAZINE HCL** 25 MG TAB PO SCH ×3 (08:52→20:44)
[2020-09-13] MEDS: METOPROLOL SUCC (TopROL XL) 100MG *XL* TAB PO SCH (08:52)
[2020-09-13] MEDS: NYSTATIN 100,000 UNITS/GM TOPICAL PWD 15 GM TOP SCH ×2 (08:54→20:46)
[2020-09-13] MEDS: LR 1,000 ML IV SCH (08:54)
--- NOTE | 2020-09-13 09:04 | IPNPDOC ---
Subjective Date Seen The patient was seen on 09/13/20. Subjective Chief Complaint/HPI Patient was admitted last [facility] for observation after her surgery. Patients states she is not feeling well today. She vomited yesterday and today. She is not able to eat solid foods yet. Her pain is somewhat controlled. her blood pressure systolic is still in 170s. Her Jps are s/s with 70 cc since surg of right side and 55 cc on left Objective Physical Examination General Exam: Positive: Cooperative Other physical findings breathing comfortably no tachycardia bilateral chest wall without palpable hematoma, bilateral chest wall incisions a re well approximated. No drainage from the wounds. 2 Romeo drains are of the right and 2 on the left with s/s drainage. good and spontaneous movement of upper extremities. good strength b/l abdomen nondistended bilateral groin yeast infection no swelling of lower extremities Assessment /Plan Assessment 60 y o F with PMH of poorly controlled HTN, DM,recurrent yeast infections, b/l breast cancer s/p chemotherapy, s/p b/l simple mastectomy, b/l SLNBx with dual tracer, b/l axillary intraop wire placement to localize previously biopsied lymph nodes, bilateral targeted axillary dissection to remove the previously biopsied lymph nodes POD1, now still with Nausea and vomiting, not able to tolerate solids and with elevated BP - keep in the hospital until N/V resolves and pt can tolerated solids (card controlled) - stop IVF when tolerating PO - CBC and bmp labs this AM - continue scopolamine patch and Zofran, may need to add Phenergan if needed - monitor BP, still high today, will defer to medicine team - OOB and ambulate as tolerated - Ancef this AM as part of perisurgicap ppx, stop Ancef after 10 am today - Diflucan daily due to numerous yeast infections ( inframammary folds b/l, b/l groin, and vaginal) - nystatin powder BID to b/l groin - no BP checks on either hand since pt had b/l axillary surgery- please use Leg - monitor drains, strip q 8h - Incentive spirometer q1H while awake - pain control - DVT ppx: SCDs, please no hepatin as patient was oozy in surgery - will continue to monitor. Possible d/c tomorrow if nausea/ vomiting resolves and BP improves - plan discussed with nursing staff Plan/VTE VTE Prophylaxis Ordered?: Yes VTE Exclusion Pharmacological: Bleeding Risk VS, I&O, 24H, Fishbone Vital Signs/I&O Vital Signs Date Time Temp Pulse Resp B/P (MAP) Pulse Ox O2 Delivery O2 Flow Rate FiO2 09/13/20 06:34 177/90 09/13/20 06:00 98.4 107 18 95 Room Air 09/13/20 01:20 2.0 I&O- Last 24 Hours up to 6 AM 09/13/20 06:00 Intake Total 3940 ml Output Total 925 ml Balance 3015 ml Laboratory Data 24H LABS Laboratory Tests 2 09/12/20 22:27: Bedside Glucose (Misc Panel) 184H 09/13/20 06:13: Estimated Mean Plasma Glucose 131H, Hemoglobin A1c 6.2 09/13/20 06:47: Bedside Glucose (Misc Panel) 139H ELDER VALERA DO Sep 13, 2020 08:40
[2020-09-13 09:10] LABS: CALCIUM LEVEL 8.9 MG/DL (8.8-10.2); CREATININE FOR GFR 1.5 MG/DL (0.55-1.30); GLOMERULAR FILTRATION RATE 37.7 (>45); POTASSIUM SERUM 3.7 MEQ/L (3.5-5.1)
[2020-09-13 09:17] LABS: BASO % 0.3 % (0.0-1.0); HEMATOCRIT 41.9 % (36.0-47.0); HEMOGLOBIN 13.2 g/dl (12.0-15.5); LYMPH # 1.3 10^3/uL (1.5-5.0); LYMPH % 8.6 % (24.0-44.0); MEAN CORPUSCULAR HEMOGLOBIN 29.9 pg (27.0-33.0); MEAN CORPUSCULAR HGB CONC 31.5 g/dl (32.0-36.5); MONO # 1.3 10^3/uL (0.0-0.8); MONO % 8.8 % (2.0-8.0); NEUTROPHILS % 81.8 % (36.0-66.0); PLATELET COUNT, AUTOMATED 440 10^3/uL (150-450); RED BLOOD COUNT 4.41 10^6/uL (4.00-5.40); WHITE BLOOD COUNT 14.7 10^3/uL (4.0-10.0)
[2020-09-13 14:40] VITALS: BP 152/73
--- NOTE | 2020-09-13 19:52 | IPNPDOC ---
Text Note Date of Service The patient was seen on 09/13/20. NOTE Hospitalist Progress Note Subjective: Feeling sore in the area of her surgery, but otherwise she is feeling fairly well, does not have any acute complaints at this time. The remainder of her review of system is negative. Objective: General: Awake, alert, oriented 3. Not in any acute distress. HEENT: Head normocephalic, atraumatic, sclera are nonicteric. Hearing is grossly intact to conversation. Respiratory: Clear to auscultation bilaterally with no wheezes, rales, or rhonchi. Cardiovascular: Regular rate and rhythm, with no rubs, gallops, or murmur. Wound dressing in place on anterior chest, I did not remove this or examine the surgical site Abdomen: Soft, nontender, nondistended, no hepatosplenomegaly appreciated. Bowel sounds present. Extremities: 2+ pulses in the radial and dorsalis pedis bilaterally. No evidence of clubbing or cyanosis. Assessment/Plan: -Breast cancer Continue with plan per recommendations from the primary surgical team -Hypertension Home dose of clonidine, hydralazine, lisinopril, metoprolol, and triamteren e/hydrochlorothiazide have all now been restarted. Her blood pressures are still high this morning, however by this afternoon they have returned back to her usual home blood pressure in the systolics of 150s. She apparently checks her blood pressure on a daily basis and keeps a log, and this is normal for her. No changes to her antihypertensive regimen at this time. Strongly recommended that she follow-up with an antihypertensive specialist (perhaps Dr. Marie) as an outpatient. -Diabetes mellitus type 2 Continue with consistent carbohydrate diet, AC/HS fingersticks, and sliding scale insulin while inpatient. Recommend restarting metformin upon discharge. -DVT prophylaxis Per recommendations from her surgical team VS,Shyambone, I+O VS, Fishbone, I+O Laboratory Tests 09/13/20 06:11 Vital Signs Date Time Temp Pulse Resp B/P (MAP) Pulse Ox O2 Delivery O2 Flow Rate FiO2 09/13/20 17:46 152/73 09/13/20 14:40 98.1 91 16 96 Room Air 09/13/20 01:20 2.0 I&O- Last 24 Hours up to 6 AM 09/13/20 06:00 Intake Total 3940 ml Output Total 925 ml Balance 3015 ml MELISSA HAYS DO Sep 13, 2020 19:52
[2020-09-13] MEDS: FLUCONAZOLE 100 MG TAB PO SCH (20:44)
[2020-09-13 22:00] VITALS: BP 124/54
[2020-09-14 02:00] VITALS: BP 147/57
[2020-09-14 06:00] VITALS: BP 182/75
[2020-09-14] MEDS: METOPROLOL SUCC (TopROL XL) 100MG *XL* TAB PO SCH (08:50)
[2020-09-14] MEDS: DYAZIDE 37.5/25 CAP (TRIAM/HCTZ) PO SCH (08:50)
[2020-09-14] MEDS: HumaLOG INSULIN (NovoLOG) PER UNIT SC SCH ×4 (08:50→20:34)
[2020-09-14] MEDS: POTASSIUM CHLORIDE 10 MEQ SR TABLET PO SCH ×2 (08:51→20:31)
[2020-09-14] MEDS: **hydrALAZINE** 50 MG TAB PO SCH ×3 (08:52→20:32)
[2020-09-14] MEDS: NYSTATIN 100,000 UNITS/GM TOPICAL PWD 15 GM TOP SCH ×2 (08:53→20:34)
--- NOTE | 2020-09-14 09:20 | IPNPDOC ---
Subjective Date Seen The patient was seen on 09/14/20. Subjective Chief Complaint/HPI Patient is doing well from surgical point- nausea resolved, pain controlled, voiding, tolerating food, 4 mark drains w s/s drainage- 155cc R and 120cc L yesterday Blood pressure, however, is poorly controlled (SBP is in 180s) and patient developed NIKI now Objective Physical Examination General Exam: Positive: Cooperative Other physical findings breathing comfortably no tachycardia bilateral chest wall without palpable hematoma, bilateral chest wall incisions are well approximated. No drainage from the wounds. 2 Mark drains are of the right and 2 on the left with s/s drainage. good and spontaneous movement of upper extremities. good strength b/l abdomen nondistended bilateral groin yeast infection no swelling of lower extremities Assessment /Plan Assessment 60 y o F with PMH of poorly controlled HTN, DM,recurrent yeast infections, b/l breast cancer s/p chemotherapy, s/p b/l simple mastectomy, b/l SLNBx with dual tracer, b/l axillary intraop wire placement to localize previously biopsied lymph nodes, bilateral targeted axillary dissection to remove the previously biopsied lymph nodes POD2, with postop nausea and vomiting( now resolved), with elevated BP and NIKI - restarted IVF NS at 50 cc due to NIKI - needs better blood pressure control, SPB this AM was 180. I will defer management of BP to medicine team, at this point patient is not ready for d/c with that high BP - no BP checks on either hand since pt had b/l axillary surgery- please use Leg - ordered CBC and bmp labs this AM - OOB and ambulate as tolerated - diabetic diet - monitor glucose per medical team recommendations - continue Diflucan daily due to numerous yeast infections (inframammary folds b/l, b/l groin, and vaginal) - continue nystatin powder BID to b/l groin - monitor drains, gently strip q 8h - Incentive spirometer q1H while awake - pain control - DVT ppx: SCDs, please no hepatin as patient was oozy in surgery - will continue to monitor. Possible d/c tomorrow if blood pressure is better controlled and NIIK improves - plan discussed with nursing staff Plan/VTE VTE Prophylaxis Ordered?: Yes VTE Exclusion Pharmacological: Bleeding Risk VS, I&O, 24H, Fishbone Vital Signs/I&O Vital Signs Date Time Temp Pulse Resp B/P (MAP) Pulse Ox O2 Delivery O2 Flow Rate FiO2 09/14/20 08:52 182/75 09/14/20 08:50 61 09/14/20 06:00 97.7 18 96 Room Air 09/13/20 01:20 2.0 I&O- Last 24 Hours up to 6 AM0 09/14/20 06:00 Intake Total 1810 ml Output Total 1345 ml Balance 465 ml Laboratory Data 24H LABS Laboratory Tests 2 09/13/20 17:28: Bedside Glucose (Misc Panel) 129H 09/13/20 20:27: Bedside Glucose (Misc Panel) 168H 09/14/20 06:17: Bedside Glucose (Misc Panel) 138H ELDER VALERA DO Sep 14, 2020 09:17
[2020-09-14] MEDS ORDERED: EMLA CREAM 5GM TUBE (LIDOCAINE/PRILOCAINE) TOP PRN (09:40)
[2020-09-14] MEDS: cloNIDine 0.1MG TABLET PO SCH ×3 (10:01→20:31)
[2020-09-14] MEDS: NS 1,000 ML IV SCH (10:37)
[2020-09-14 10:40] LABS: BASO # 0.1 10^3/uL (0.0-0.2); BASO % 0.6 % (0.0-1.0); EOS # 0.3 10^3/uL (0.0-0.5); EOS % 2.3 % (0.0-3.0); HEMATOCRIT 37.1 % (36.0-47.0); HEMOGLOBIN 11.4 g/dl (12.0-15.5); LYMPH # 1.9 10^3/uL (1.5-5.0); LYMPH % 16.8 % (24.0-44.0); MEAN CORPUSCULAR HEMOGLOBIN 29.8 pg (27.0-33.0); MEAN CORPUSCULAR HGB CONC 30.7 g/dl (32.0-36.5); MEAN CORPUSCULAR VOLUME 97.1 fl (80.0-96.0); MONO # 0.9 10^3/uL (0.0-0.8); MONO % 7.5 % (2.0-8.0); NEUTROPHILS # 8.3 10^3/uL (1.5-8.5); NEUTROPHILS % 72.3 % (36.0-66.0); PLATELET COUNT, AUTOMATED 307 10^3/uL (150-450); RED BLOOD COUNT 3.82 10^6/uL (4.00-5.40); WHITE BLOOD COUNT 11.5 10^3/uL (4.0-10.0)
[2020-09-14 11:07] LABS: CALCIUM LEVEL 9.4 MG/DL (8.8-10.2); CREATININE FOR GFR 1.3 MG/DL (0.55-1.30); GLOMERULAR FILTRATION RATE 44.5 (>45); POTASSIUM SERUM 4.1 MEQ/L (3.5-5.1)
[2020-09-14 13:46] LABS: ALBUMIN 2.8 GM/DL (3.2-5.2); CALCIUM LEVEL 8.8 MG/DL (8.8-10.2); CREATININE FOR GFR 1.29 MG/DL (0.55-1.30); GLOMERULAR FILTRATION RATE 44.9 (>45); PHOSPHORUS LEVEL 2.9 MG/DL (2.5-4.9); POTASSIUM SERUM 4.3 MEQ/L (3.5-5.1)
[2020-09-14 14:33] VITALS: BP 133/64
--- NOTE | 2020-09-14 16:03 | IPNPDOC ---
Text Note Date of Service The patient was seen on 09/14/20. NOTE Hospitalist Progress Note Subjective: She does not have any pain today, and she is actually feeling quite well. She denies any symptoms of headache, dizziness, nausea, or abdominal discomfort. Remainder review of systems is negative. Objective: General: Awake, alert, oriented 3. Not in any acute distress. HEENT: Head normocephalic, atraumatic, sclera are nonicteric. Hearing is grossly intact to conversation. Respiratory: Clear to auscultation bilaterally with no wheezes, rales, or rhonchi. Cardiovascular: Regular rate and rhythm, with no rubs, gallops, or murmur. Wound dressing in place on anterior chest. Abdomen: Soft, nontender, nondistended, no hepatosplenomegaly appreciated. Extremities: 2+ pulses in the radial and dorsalis pedis bilaterally. No evidence of clubbing or cyanosis. Assessment/Plan: -Hypertension Given her very complicated antihypertensive regimen, I called and spoke with Hypertension Specialist Dr. Marie, per his recommendations we will discontinue the triamterene/hydrochlorothiazide and replace with spironolactone 25 mg daily and chlorthalidone 25 mg daily. We will also discontinue lisinopril and replace this with valsartan 300 mg daily at bedtime. Also, an aldosterone/renin ratio has been ordered at this time such we may be able to get accurate information prior to the administration of spironolactone. Because we are starting her on chlorthalidone and spironolactone we will follow a daily BMP. DASH diet with 2.5 g sodium restriction was recommended, and order placed. Additionally, the patient does admit to having obstructive sleep apnea, and admits to noncompliance with her CPAP machine even while at home as she cannot tolerate wearing the mask on. It was recommended that she revisit this topic as an outpatient with her PCP, and perhaps find a more comfortable mask to help with compliance as this would also help with her chronic refractory hypertension. Order for outpatient consult for hypertension management was also faxed over to the office of Dr. Marie such of their office will be ready to receive her in follow-up upon discharge. -Breast cancer Continue with plan per recommendations from the primary surgical team -Diabetes mellitus type 2 Continue with consistent carbohydrate restriction in her diet (as well as DASH recommendations), AC/HS fingersticks, and sliding scale insulin while inpatient. Recommend restarting metformin upon discharge. -DVT prophylaxis Per recommendations from her surgical team Schuyler MOORE, I+O Schuyler MOORE, I+O Laboratory Tests 09/14/20 10:26 09/14/20 13:03 Vital Signs Date Time Temp Pulse Resp B/P (MAP) Pulse Ox O2 Delivery O2 Flow Rate FiO2 09/14/20 14:33 98.7 70 16 133/64 (87) 94 09/14/20 06:00 Room Air 09/13/20 01:20 2.0 I&O- Last 24 Hours up to 6 AM 09/14/20 06:00 Intake Total 1810 ml Output Total 1345 ml Balance 465 ml MELISSA HAYS DO Sep 14, 2020 16:03
[2020-09-14] MEDS: FLUCONAZOLE 100 MG TAB PO SCH (20:32)
[2020-09-14] MEDS ORDERED: VALSARTAN 80 MG TAB (DIOVAN) PO SCH (21:00)
[2020-09-14 22:00] VITALS: BP 134/62
[2020-09-15] MEDS: NS 1,000 ML IV SCH (05:25)
[2020-09-15 05:43] LABS: CALCIUM LEVEL 9.1 MG/DL (8.8-10.2); CREATININE FOR GFR 1.14 MG/DL (0.55-1.30); GLOMERULAR FILTRATION RATE 51.8 (>45); POTASSIUM SERUM 4.5 MEQ/L (3.5-5.1)
[2020-09-15 06:00] VITALS: BP_SYST 138; BP_SYST 159; BP_DIAS 65; BP_DIAS 82
--- NOTE | 2020-09-15 07:44 | IPNPDOC ---
Subjective Date Seen The patient was seen on 09/15/20. Subjective Chief Complaint/HPI blood pressure is better controlled today. NIKI resolved. Minimal pain at surgical site, R Mark drains 135 cc, L 100 cc s/s. Objective Physical Examination General Exam: Positive: Cooperative Other physical findings breathing comfortably no tachycardia bilateral chest wall without palpable hematoma, bilateral chest wall incisions are well approximated. No drainage from the wounds. 2 Mark drains are of the right and 2 on the left with s/s drainage. good and spontaneous movement of upper extremities. good strength b/l abdomen nondistended bilateral groin yeast infection no swelling of lower extremities Assessment /Plan Assessment 60 y o F with PMH of poorly controlled HTN, DM,recurrent yeast infections, b/l breast cancer s/p chemotherapy, s/p b/l simple mastectomy, b/l SLNBx with dual tracer, b/l axillary intraop wire placement to localize previously biopsied lymph nodes, bilateral targeted axillary dissection to remove the previously biopsied lymph nodes POD3, with postop nausea and vomiting (now resolved), with elevated BP ( now improved) and NIKI( now resolved) - stopped IVF - please pull the left most lateral mark drain out since it has trouble sealing. please place occlusive dressing/ Bandaid - BP better controlled with new regimen, please send patient home on this regimen, I appreciate Medical team help with control of BP - no BP checks on either hand since pt had b/l axillary surgery- please use Leg - OOB and ambulate as tolerated - diabetic diet/ low sodium - monitor glucose per medical team recommendations - ok to stop diflucan at d/c - continue nystatin powder BID to b/l groin at home as well - monitor drains, drain teaching, record output q 24h - Incentive spirometer q1H while awake - pain control - DVT ppx: SCDs, please no hepatin as patient was oozy in surgery - ok to d/c home today is cleared by medicine with new blood pressure regimen, f/u appt with me in the office on 09/22 - plan discussed with nursing staff Plan/VTE VTE Prophylaxis Ordered?: Yes VTE Exclusion Pharmacological: Bleeding Risk VS, I&O, 24H, Fishbone Vital Signs/I&O Vital Signs Date Time Temp Pulse Resp B/P (MAP) Pulse Ox O2 Delivery O2 Flow Rate FiO2 09/15/20 06:00 138/65 (89) 09/15/20 06:00 97.3 53 18 98 Room Air 09/13/20 01:20 2.0 I&O- Last 24 Hours up to 6 AM 09/15/20 06:00 Intake Total 1880 ml Output Total 175 ml Balance 1705 ml Laboratory Data 24H LABS Laboratory Tests 2 09/14/20 10:26: Immature Granulocyte % (Auto) 0.5, Neutrophils (%) (Auto) 72.3H, Lymphocytes (%) (Auto) 16.8L, Monocytes (%) (Auto) 7.5, Eosinophils (%) (Auto) 2.3, Basophils (%) (Auto) 0.6, Neutrophils # (Auto) 8.3, Lymphocytes # (Auto) 1.9, Monocytes # (Auto) 0.9H, Eosinophils # (Auto) 0.3, Basophils # (Auto) 0.1, Nucleated Red Blood Cells % (auto) 0.0, Anion Gap 5L, Glomerular Filtration Rate 44.5L, Ca lcium Level 9.4 09/14/20 11:40: Bedside Glucose (Misc Panel) 119H 09/14/20 13:03: Anion Gap 8, Glomerular Filtration Rate 44.9L, Calcium Level 8.8, Phosphorus Level 2.9, Albumin 2.8L 09/14/20 16:38: Bedside Glucose (Misc Panel) 150H 09/14/20 19:50: Bedside Glucose (Misc Panel) 140H 09/15/20 05:04: Anion Gap 5L, Glomerular Filtration Rate 51.8, Calcium Level 9.1 CBC/BMP Laboratory Tests 09/14/20 10:26 09/14/20 13:03 09/15/20 05:04 ELDER VALERA DO Sep 15, 2020 07:44
[2020-09-15] MEDS: HumaLOG INSULIN (NovoLOG) PER UNIT SC SCH ×2 (08:27→12:00)
[2020-09-15] MEDS: METOPROLOL SUCC (TopROL XL) 100MG *XL* TAB PO SCH (08:27)
[2020-09-15 08:28] VITALS: BP 159/82
[2020-09-15] MEDS: POTASSIUM CHLORIDE 10 MEQ SR TABLET PO SCH (08:28)
[2020-09-15] MEDS: cloNIDine 0.1MG TABLET PO SCH (08:28)
[2020-09-15] MEDS: **hydrALAZINE** 50 MG TAB PO SCH (08:28)
[2020-09-15] MEDS: NYSTATIN 100,000 UNITS/GM TOPICAL PWD 15 GM TOP SCH (08:29)
[2020-09-15] MEDS ORDERED: CHLORTHALIDONE 25 MG TAB PO SCH (09:00)
[2020-09-15] MEDS ORDERED: SPIRONOLACTONE 25 MG TAB PO SCH (09:00)
[2020-09-15] MEDS ORDERED: VALSARTAN 80 MG TAB (DIOVAN) PO SCH (09:00)
[2020-09-15] MEDS ORDERED: ALDA25TA2 PO (10:23)
[2020-09-15] MEDS ORDERED: CHLO25TA PO (10:23)
[2020-09-15] MEDS ORDERED: DIOV80TA3 PO (10:23)
[2020-09-15] MEDS ORDERED: VALS1TAB68 PO (11:06)
[2020-09-15 11:14] VITALS: BP 140/64
[2020-09-15] MEDS ORDERED: NYST1POW9 TOP (11:18)
[2020-09-15] MEDS ORDERED: ROXI1TAB2 PO (11:18)
--- NOTE | 2020-09-15 11:58 | REP ---
INDICATION: BILATERAL SIMPLE MAST, BILATERAL SENTINAL. COMPARISON: 03/19/2020. TECHNIQUE: Two specimen radiographs performed. FINDINGS: First image shows a localizing wire. One of the biopsy clips visualized in the left breast on the 03/19/2020 exam is seen at the peripheral margin of the specimen. Second image shows the other biopsy clip centrally within the specimen. IMPRESSION: Specimen radiographs as detailed above. RECOMMENDATION: Clinical follow-up. <Electronically signed by Ousmane Ko > 09/15/20 [id number]
--- NOTE | 2020-09-15 19:50 | DS.PDOC ---
Discharge Summary General Date of Admission Sep 12, 2020 at 19:40 Date of Discharge 09/15/20 Discharge Summary Patient was admitted postop after b/l mastectomy with b/l SLNBx and excision of previously bx LNs. She has high blood pressure and her BP regimen had to be adjusted. She was d/c home in stable condition after her blood pressure was adequately controlled. Vital Signs/I&Os Vital Signs Date Time Temp Pulse Resp B/P (MAP) Pulse Ox O2 Delivery O2 Flow Rate FiO2 09/15/20 11:14 66 140/64 (89) 09/15/20 06:00 97.3 18 98 Room Air 09/13/20 01:20 2.0 I&O- Last 24 Hours up to 6 AM 09/15/20 06:00 Intake Total 1880 ml Output Total 175 ml Balance 1705 ml Laboratory Data Labs 24H Laboratory Tests 2 09/14/20 19:50: Bedside Glucose (Misc Panel) 140H 09/15/20 05:04: Anion Gap 5L, Glomerular Filtration Rate 51.8, Calcium Level 9.1 CBC/BMP Laboratory Tests 09/15/20 05:04 FSBS Laboratory Tests Test 09/14/20 19:50 Range/Units Bedside Glucose (Misc Panel) 140 80-115 MG/DL Discharge Medications Scheduled Chlorthalidone (Chlorthalidone) 25 Mg Tablet, 25 MG PO DAILY Clonidine HCl (Clonidine HCl) 0.3 Mg Tablet, 0.3 MG PO TID, (Reported) Hydralazine HCl (Hydralazine HCl) 25 Mg Tablet, 25 MG PO TID, (Reported) Metformin HCl (Metformin HCl) 500 Mg Tablet, 500 MG PO DAILY, (Reported) Metoprolol Succinate (Metoprolol Succinate) 100 Mg Tab.er.24h, 1 TAB PO DAILY, (Reported) Nystatin (Nystatin Powder) 15 Gm Powder, 1 APLCT TOP BID apply to affected area(s) Potassium Chloride (Potassium Chloride) 20 Meq Tab.er.prt, BID, (Reported) Pravastatin Sodium (Pravastatin Sodium) 40 Mg Tablet, 1 TAB PO QPM, (Reported) Spironolactone (Aldactone) 25 Mg Tablet, 25 MG PO DAILY Valsartan (Diovan) 80 Mg Tablet, 320 MG PO QHS Valsartan (Valsartan) 320 Mg Tablet, 1 TAB PO QHS Scheduled PRN Oxycodone HCl (Roxicodone) 5 Mg Tablet, 5 MG PO Q4-6HP PRN for pain Allergies Coded Allergies: diltiazem (Verified Allergy, Intermediate, HIVES, 09/12/20) ELDER VALERA DO Sep 15, 2020 19:50
== END 2020-09-15 13:50 | disposition home or self-care (01) ==
LOC: M RADPRO 06:31 → M MS5PR 19:40 → M RADPRO 19:40 → M MS5PR 20:50
PROVIDERS: ADMIT Surgery; ATTEND Surgery
DX: C50.912 Malignant neoplasm of unspecified site of left female breast (principal); D05.11 Intraductal carcinoma in situ of right breast; Z17.0 Estrogen receptor positive status [ER+]; N17.9 Acute kidney failure, unspecified; I10 Essential (primary) hypertension; E11.9 Type 2 diabetes mellitus without complications; Z79.4 Long term (current) use of insulin; E78.49 Other hyperlipidemia; K57.92 Diverticulitis of intestine, part unspecified, without perforation or abscess without bleeding; E66.9 Obesity, unspecified; Z88.8 Allergy status to other drugs, medicaments and biological substances; Z79.899 Other long term (current) drug therapy
CPT/HCPCS: 11401; 19303; 36415; 38525; 64450; 76942; 78195; 80048; 80069; 82088; 83036; 84244; 85025; 86850; 86900; 86901; 88304; 88305; 88307; 88342; 96361; 96365; 96366; 96375; A9541; C9290; J0131; J0360; J0690; J1100; J1644; J2250; J2270; J2370; J2405; J2765; J3010; Q9968

== ENCOUNTER → 2020-09-29 | Outpatient (CLI) | payer OTHER ==
[~2020-09-29] MED LIST changes: +ALDA25TA2 PO; +CHLO25TA PO; +DIOV80TA3 PO; +NYST1POW9 TOP; +ROXI1TAB2 PO; +VALS1TAB68 PO
== END ==
LOC: M RAD 15:47
PROVIDERS: ATTEND Nurse Practitioner Adult Health
DX: R91.8 Other nonspecific abnormal finding of lung field (principal)

== ENCOUNTER → 2020-10-27 | Outpatient (CLI) | payer OTHER ==
[~2020-10-27] MED LIST changes: +DEXA4TA PO; +ISRA2.5C PO; +PROC10TA4 PO
--- NOTE | 2020-10-28 09:16 | ECHO ---
DATE OF PROCEDURE: 10/27/2020 Age: 60 Gender: Female Height: 152 cm Weight: 92 kg REFERRING PHYSICIAN: Dr. Reynaga. INDICATION: Chemotherapy, malignancy. MEASUREMENTS: IVS 1.2 cm LV 4.3 cm LVPW 1.2 cm LA 3.3 cm Aorta 2.9 cm Left atrium volume index 26 ml/m2 IVC 1.6 cm Mitral E wave velocity 92 A wave 99 E prime septal 4.6 E prime lateral 5.4 FINDINGS: This study is of good technical quality. There is underlying sinus rhythm. Normal LV size with mild LVH and preserved LV systolic function. Estimated LVEF 65 to 70%. Right ventricle also appears to have normal size and systolic function. Both atria appear normal. All four cardiac valves were reasonably well seen and appear normal. Small to moderate size circumferential pericardial effusion is noted. Inferior vena cava is normal size and appropriately collapses with inspiration indicative of normal central venous pressure. Aortic root, aortic arch, and visualized segment of abdominal aorta all appear normal. Doppler interrogation of aortic valve reveals no stenosis or insufficiency. There is mild mitral and mild tricuspid insufficiency. Calculated pulmonary artery pressure is in high 20s corresponding to normal values. Pulmonic valve is functionally competent. Mitral inflow pattern and tissue Doppler imaging of mitral annulus revealed grade 1 diastolic dysfunction. Global longitudinal strain was negative at 21.8% which is normal. CONCLUSIONS: 1. Study is of good technical quality, underlying sinus rhythm. 2. Normal LV size with mild LVH, estimated LVEF 65 to 70%. Grade 1 diastolic dysfunction. GLS negative 21.8%. 3. No significant valvular disease. 4. Normal central venous pressure and normal pulmonary artery pressure. 5. Small but circumferential pericardial effusion without any signs of cardiac compression. MTDD
== END ==
LOC: M CARPUL 11:01
PROVIDERS: ATTEND Internal Medicine Hematology & Oncology
DX: C50.911 Malignant neoplasm of unspecified site of right female breast (principal)

== ENCOUNTER → 2020-11-17 | Outpatient (CLI) | payer OTHER | LOC: M CARPUL 12:03 | PROVIDERS: ATTEND Internal Medicine Hematology & Oncology | DX: C50.911 Malignant neoplasm of unspecified site of right female breast (principal) ==

== ENCOUNTER → 2021-04-09 | Outpatient (CLI) | payer OTHER ==
[~2021-04-09] MED LIST changes: +AMOX875T PO; +CIPR500S PO; +CLONI1TA PO; +ELIQ5TAB PO; +METR-265 PO; +PROBCAP14 PO
--- NOTE | 2021-04-09 14:18 | REP ---
INDICATION: ABN FINDINGS OF LUNG FIELD. History of breast carcinoma. COMPARISON: October 06, 2020. September 29, 2020. And August 25, 2020. TECHNIQUE: Helical scanning is acquired. 3 mm axial images are generated. Coronal and sagittal MPR and coronal MIP images are generated. FINDINGS: Digital preliminary pharmacy specialist radiograph demonstrates a right-sided [id number] catheter. Patient is status post bilateral mastectomy. No axillary or chest wall mass, adenopathy or abnormal fluid collection is seen. There are bilateral thyroid nodules again visible unchanged. There is no evidence of pleural or pericardial effusion. There is fatty infiltration of the liver. There is a stable left adrenal nodule measuring There are multiple noncalcified scattered pulmonary nodules bilaterally which are felt to be unchanged from the September 29, 2020 and August 25, [address] studies. There is 1 calcified granuloma in the right lower lobe which is unchanged as well. The infiltrate previously noted in the right base has resolved. The superior segment of the right upper lobe infiltrate is improved over its appearance on August 25, 2020 but there is still some peripheral ground-glass opacity versus scarring. The largest pulmonary nodules are in the right lower lobe superior segment, 8 mm, page 39 of 103 in series 201 of today's study. And, in the left lower lobe there is a pleural based nodule adjacent to the heart border measuring 10 mm. This is displayed on page 59 of 103. These are unchanged. Left renal cysts are noted. No acute bony abnormality is seen. IMPRESSION: Status post bilateral mastectomy. Multiple calcified and noncalcified pulmonary nodules unchanged from August 25, 2020. Fatty infiltration of the liver. Right-sided [id number] catheter. Stable left adrenal nodule. Is <Electronically signed by Kip Zuniga > 04/09/21 [id number]
== END ==
LOC: M RAD 13:13
PROVIDERS: ATTEND Internal Medicine Pulmonary Disease
DX: R91.8 Other nonspecific abnormal finding of lung field (principal)

== ENCOUNTER → 2021-04-30 | Outpatient (CLI) | payer OTHER | LOC: M CARPUL 09:28 | PROVIDERS: ATTEND Internal Medicine Hematology & Oncology | DX: C50.919 Malignant neoplasm of unspecified site of unspecified female breast (principal) ==

== ENCOUNTER → 2021-07-14 | Outpatient (CLI) | payer OTHER ==
[~2021-07-14] MED LIST changes: +CVS10CAP7 PO; +D31000TA2 PO; +GLIP2.5T6 PO; +MAGN400T2 PO; +POTA-151 PO; -POTA20TA6; -POTA20TA6 PO; -PROC10TA4 PO; +PROC10TA5 PO
== END ==
LOC: M CARPUL 13:54
PROVIDERS: ATTEND Internal Medicine Medical Oncology
DX: C50.911 Malignant neoplasm of unspecified site of right female breast (principal)

== ENCOUNTER → 2021-10-09 | Outpatient (CLI) | payer OTHER ==
[~2021-10-09] MED LIST changes: +ANAS1TAB2 PO; -D31000TA2 PO; +VITA100093 PO
== END ==
LOC: M RAD 08:38
PROVIDERS: ATTEND Physician Assistant
DX: R91.8 Other nonspecific abnormal finding of lung field (principal)

== ENCOUNTER → 2021-10-19 | Outpatient (CLI) | payer OTHER | LOC: M PLARAD 10:50 | PROVIDERS: ATTEND Internal Medicine Hematology & Oncology | DX: C50.911 Malignant neoplasm of unspecified site of right female breast (principal); C50.912 Malignant neoplasm of unspecified site of left female breast | CPT/HCPCS: 78815; A9552 ==

== ENCOUNTER → 2021-11-05 | Outpatient (CLI) | payer OTHER | LOC: M CARPUL 07:03 | PROVIDERS: ATTEND Internal Medicine Hematology & Oncology | DX: C50.911 Malignant neoplasm of unspecified site of right female breast (principal) ==

== ENCOUNTER → 2022-04-26 | Outpatient (CLI) | payer OTHER ==
[~2022-04-26] MED LIST changes: +ATOR40TA75; -TRIA37.53 PO; +TRIA37.577 PO
== END ==
LOC: M RAD 09:22
PROVIDERS: ATTEND Internal Medicine Medical Oncology
DX: R74.8 Abnormal levels of other serum enzymes (principal)

== ENCOUNTER → 2022-10-05 | Outpatient (POV) | payer OTHER ==
[~2022-10-05] VITALS: Ht 152.4 cm; Wt 96.4 kg
[2022-10-05 10:15] VITALS: BP 146/95
== END ==
LOC: M IRPOV 09:59
PROVIDERS: ATTEND Radiology Diagnostic Radiology
DX: Z45.2 Encounter for adjustment and management of vascular access device (principal); Z85.3 Personal history of malignant neoplasm of breast; Z88.8 Allergy status to other drugs, medicaments and biological substances

== ENCOUNTER → 2022-10-15 | Outpatient (CLI) | payer OTHER | LOC: M LABSMTC 08:57 | PROVIDERS: ATTEND Anesthesiology | DX: Z11.59 Encounter for screening for other viral diseases (principal) ==

== ENCOUNTER → 2022-10-18 | Outpatient (CLI) | payer OTHER ==
[~2022-10-18] MED LIST changes: +ISRA5CAP PO; +LIDOCAINE 1% MDV 20ML VIAL As Ordered ONE; +MIDAZOLAM INJ 2MG/2ML VIAL As Ordered ONE; +NS 1,000 ML IV SCH; +ceFAZolin 2 GM/D5W 50 ML IV BAG As Ordered ONE; +ceFAZolin SOD 2 GM in IV 1 EA IV ONE; +diphenhydrAMINE 50MG/ML VIAL As Ordered ONE; +fentaNYL 100 MCG/2 ML INJECTION As Ordered ONE
[2022-10-18 16:30] VITALS: BP 138/80
== END ==
LOC: M IRPRO 12:07
PROVIDERS: ATTEND Radiology Diagnostic Radiology
DX: Z45.2 Encounter for adjustment and management of vascular access device (principal); C50.911 Malignant neoplasm of unspecified site of right female breast; C50.912 Malignant neoplasm of unspecified site of left female breast; Z79.811 Long term (current) use of aromatase inhibitors; Z79.84 Long term (current) use of oral hypoglycemic drugs; Z88.8 Allergy status to other drugs, medicaments and biological substances
CPT/HCPCS: 36590; 99152; 99153; J0690; J2250; J3010

== ENCOUNTER → 2022-11-09 | Outpatient (POV) | payer OTHER ==
[~2022-11-09] VITALS: Ht 152.4 cm; Wt 96.3 kg
[~2022-11-09] MED LIST changes: -LIDOCAINE 1% MDV 20ML VIAL As Ordered ONE; -MIDAZOLAM INJ 2MG/2ML VIAL As Ordered ONE; -NS 1,000 ML IV SCH; -ceFAZolin 2 GM/D5W 50 ML IV BAG As Ordered ONE; -ceFAZolin SOD 2 GM in IV 1 EA IV ONE; -diphenhydrAMINE 50MG/ML VIAL As Ordered ONE; -fentaNYL 100 MCG/2 ML INJECTION As Ordered ONE
[2022-11-09 08:45] VITALS: BP 139/80
== END ==
LOC: M IRPOV 08:18
PROVIDERS: ATTEND Radiology Diagnostic Radiology
DX: Z45.2 Encounter for adjustment and management of vascular access device (principal); Z88.8 Allergy status to other drugs, medicaments and biological substances

== ENCOUNTER → 2022-11-25 | Outpatient (CLI) | payer OTHER ==
[~2022-11-25] MED LIST changes: +POTA-298 PO; -POTA1TAB14 PO
== END ==
LOC: M PLAIMG 10:00
PROVIDERS: ATTEND Internal Medicine Pulmonary Disease
DX: R91.8 Other nonspecific abnormal finding of lung field (principal)

== ENCOUNTER → 2023-01-05 | Outpatient (CLI) | payer OTHER ==
[~2023-01-05] MED LIST changes: +LETR2.5T2 PO
== END ==
LOC: M WHC 10:46
PROVIDERS: ATTEND Internal Medicine Hematology & Oncology
DX: Z79.899 Other long term (current) drug therapy (principal); C34.90 Malignant neoplasm of unspecified part of unspecified bronchus or lung

== ENCOUNTER → 2024-01-25 | Outpatient (CLI) | payer OTHER ==
[~2024-01-25] MED LIST changes: -HYDR-3910 PO; +HYDR25TA87 PO; +ONDA-284 PO; -ONDA8TAB8 PO
== END ==
LOC: M RAD 10:42
PROVIDERS: ATTEND Internal Medicine Pulmonary Disease
DX: R91.8 Other nonspecific abnormal finding of lung field (principal)

== ENCOUNTER → 2024-12-04 | Outpatient (CLI) | payer OTHER ==
[~2024-12-04] MED LIST changes: +CALC1TAB30 PO; +GLIP2.5T46 PO; -GLIP2.5T6 PO; +NYST1POW3 TOP; -NYST1POW9 TOP
== END ==
LOC: M CARPUL 13:02
PROVIDERS: ATTEND Physician Assistant
DX: I35.8 Other nonrheumatic aortic valve disorders (principal); I34.89 Other nonrheumatic mitral valve disorders; I31.39 Other pericardial effusion (noninflammatory)

== ENCOUNTER → 2025-01-29 | Outpatient (CLI) | payer OTHER ==
[~2025-01-29] MED LIST changes: -PRAV40TA2 PO; +PRAV40TA85 PO
== END ==
LOC: M WHC 11:55
DX: C50.911 Malignant neoplasm of unspecified site of right female breast (principal); C50.912 Malignant neoplasm of unspecified site of left female breast; M81.0 Age-related osteoporosis without current pathological fracture